=== PATIENT | female | born 1955 | race Caucasian/White ===

== ENCOUNTER 2023-04-08 14:11 | Inpatient (IN) ==
--- NOTE | 2023-04-08 14:23 | Emergency Department Note ---
Impression & Plan Hypoxia ADMIT ED Provider Note HPI: The patient is a 67-year-old female who presents emergency department with chief complaint of altered mental status. Patient was reportedly discharged home from [facility] on 04/02 where she was admitted for pneumonia and hypoxia. Patient was seen by a home health provider today and noted to be in a state of decline with some altered mental status/delirium and therefore was referred to the emergency room via EMS. On arrival here to the ED, the patient is able to follow commands, she is unable to tell me much other history and she is unaware of where she is. She does not have any obvious focal deficits. Per EMS report patient was saturating at 88% in route and was placed on nonrebreather mask. On my assessment the patient is saturating at 98% on 10 L nonrebreather mask. ROS: - Per HPI Differential Diagnosis: Sepsis, pneumonia, stroke, intracranial hemorrhage, urinary tract infection/pyelonephritis, viral upper respiratory infection with respiratory failure/hypoxia, amongst other potential pathologies. *Outpatient medications and allergy history reviewed. *Pertinent external medical records reviewed : PE: General: Alert, morbidly obese HEENT: Normocephalic, trachea midline Eyes: Extraocular eye movement is intact, no scleral erythema Pulmonary: Clear to auscultation bilaterally, no wheezing Cardio: Tachycardic rate with regular rhythm GI: Abdomen is soft to palpation, no guarding or rigidity, no distention : No suprapubic tenderness MSK: No evidence of trauma or malformation of the extremities, no edema Skin: No evidence of rash Neuro: Alert, no focal deficits noted, ambulates all extremities spontaneously, symmetrical facial movements are appreciated Psychiatric: Patient is not oriented to place, she is oriented to self, she is not aggressive, she is confused awake overnight monitor: (As interpreted by myself): - An order was placed for continuous cardiac monitoring - Patient was noted to be in sinus tachycardia with a rate of 121 EKG: (As interpreted by myself): Rate: 121 Rhythm: Sinus tachycardia Intervals: Within normal limits ST changes: No ST elevation Time: 1419 Interventions provided in ED: -IV fluid bolus, IV cefepime, IV azithromycin Medical Decision Making: Shortly after the patient arrived IV was established and lab work ordered, patient began with IV fluid resuscitation over concern for possible sepsis. She maintained stable oxygen saturations on nonrebreather mask and was eventually weaned to simple oxy mask. Lab work shows a leukocytosis of 11.14, hemoglobin is slightly high at 16.2 (suspect hemoconcentration secondary to dehydration), platelet count is within normal limits, CMP shows mild hyponatremia, potassium is elevated at 5.5, BUN is 77, creatinine elevated at 1.45 without baseline. Total bilirubin is within normal limits, AST, ALT, and alk phos are all elevated with AST of 143, ALT 108, alk phos at 782. Troponin is elevated at 49.1, EKG does not show any acute ischemic changes per my interpretation. Procalcitonin is elevated at 0.62, chest x-ray is suggestive of focal interstitial thickening per interpreting radiologist. Glucose on CMP shows results of only 57, patient reportedly had a blood sugar in the 70s in the field, she was given an amp of D50 for this. Mentation did steadily improve throughout her stay here in the ED. CT imaging of the abdomen pelvis was obtained given the patient's transaminitis, this shows possible hepatitis/hepatomegaly. There is also mention of a 17 mm enhancing nodule in the right lower quadrant mention specifically is possible ectopic tissue. I did discuss this finding with the interpreting radiologist, Dr. Miranda, via [place] text, and he explains to me that this finding is likely unrelated to her current issues, and could possibly be a radiodense diverticulum eg inspissated old barium. Patient's abdomen is soft and nontender on my exam. Patient was treated with broad-spectrum antibiotics with cefepime and azithromycin coverage for possible atypical pneumonia given chest x-ray findings. She remained stable on oxy mask at [address] imaging of the head does not show any evidence of any acute intracranial process. I discussed all the gail sena findings with the on-call midlevel provider for [employer], [employer], and the patient was placed for admission in stable condition for further management to the service of Dr. Montes. Consultants: Hospitalist service, Dr. Montes * CRITICAL CARE TIME: ( 45 ) minutes -Stabilization of patient with hypoxia at 88% on room air requiring supplemental oxygen for correction, time spent at the bedside, fluid resuscitation over concern for sepsis, initiation of IV antibiotics, interpretation of diagnostic studies including EKG, discussion with other healthcare providers and arrangement of admission Diagnosis: 1. Hypoxia, acute 2. Pneumonia, acute 3. Acute kidney injury 4. Leukocytosis, acute 5. Altered mental status 6. Transaminitis, nonspecific 7. Hypoglycemia, acute 8. Hyperkalemia, acute, mild Disposition: Admission Jm Hou DO Emergency Medicine Past Med/Surg History Medical History (Updated 04/08/23 @ 20:19 by Jm Hou DO) GERD (gastroesophageal reflux disease) Peptic ulcer disease Surgical History (Updated 04/08/23 @ 17:59 by Sheila Hatfield PA-C) H/O section History of ankle surgery Hx of appendectomy Hx of hysterectomy, total Family History (Updated 04/08/23 @ 18:00 by Sheila Hatfield PA-C) Mother Heart disease Brother Lung cancer Social History (Updated 04/08/23 @ 18:00 by Sheila Hatfield PA-C) Smoking Status: Current every day smoker Hx Alcohol Use: Yes Feels Safe at Home: Yes Allergies Allergies Allergy/AdvReac Type Severity Reaction Status Date / Time penicillin G Allergy Unknown HIVES, RASH Verified 04/08/23 17:46 aspirin Allergy RASH/ITCHY Verified 04/08/23 17:48 Home Meds Home Medications Medication Instructions Recorded Confirmed albuterol sulfate 90 mcg/actuation 2 puff inhalation [id number] PRN 04/08/23 04/08/23 aerosol inhaler Shortness Of Breath Or Wheezing aspirin 81 mg tablet,delayed 81 mg PO DAILY 04/08/23 04/08/23 release atorvastatin 80 mg tablet 80 mg PO DAILY 04/08/23 04/08/23 bupropion HCl 300 mg 24 hr tablet, 300 mg PO DAILY 04/08/23 04/08/23 extended release calcitriol 0.25 mcg capsule 0.25 mcg PO DAILY 04/08/23 04/08/23 cholecalciferol (vitamin D3) 50 50 mcg PO DAILY 04/08/23 04/08/23 mcg (2,000 unit) tablet fluticasone fur. 200 mcg-umeclid 1 inh inhalation DAILY 04/08/23 04/08/23 62.5 mcg-vilant 25 mcg inhalat.powder (Trelegy Ellipta) fluticasone propionate 50 2 spray intranasal DAILY 04/08/23 04/08/23 mcg/actuation nasal spray,suspension ondansetron HCl 8 mg tablet 8 mg PO Q8H PRN Nausea 04/08/23 04/08/23 oxycodone-acetaminophen 5 mg-325 1 tab PO Q6H PRN Pain 04/08/23 04/08/23 mg tablet Results & Data (ED) Vital Signs Vital Signs - 24 hr 04/08/23 14:17 04/08/23 14:15 04/08/23 14:17 Temperature 36.6 C Temperature Source Oral Pulse Rate 125 H 117 H 123 H Pulse Rate from SpO2 Sensor 125 H Respiratory Rate 30 H 14 Respiratory Effort / Characteristics Spontaneous Labored Short of Breath Respiratory Depth Shallow Blood Pressure 121/79 Blood Pressure Mean 93 Pulse Oximetry 98 98 Oxygen Delivery Method Oxymask Oxygen Flow Rate 6 Sepsis Recent Fever Within 48 Hours No Sepsis New/Unexplained Change in Mental Status No Sepsis Action Taken by Nursing Physician Notified Oxygen Flow Rate - Titration Pulse Oximetry Post Tiitration 04/08/23 14:18 04/08/23 14:18 04/08/23 14:20 Temperature Temperature Source Pulse Rate 121 H Pulse Rate from SpO2 Sensor 123 H Respiratory Rate 22 Respiratory Effort / Characteristics Respiratory Depth Blood Pressure 123/79 Blood Pressure Mean 112 100 Pulse Oximetry 100 Oxygen Delivery Method Oxygen Flow Rate Sepsis Recent Fever Within 48 Hours Sepsis New/Unexplained Change in Mental Status Sepsis Action Taken by Nursing Oxygen Flow Rate - Titration Pulse Oximetry Post Tiitration 04/08/23 14:20 04/08/23 14:30 04/08/23 14:39 Temperature Temperature Source Pulse Rate 121 H 121 H Pulse Rate from SpO2 Sensor Respiratory Rate 25 H 31 H Respiratory Effort / Characteristics Respiratory Depth Blood Pressure 117/93 Blood Pressure Mean 95 Pulse Oximetry Oxygen Delivery Method Oxygen Flow Rate Sepsis Recent Fever Within 48 Hours Sepsis New/Unexplained Change in Mental Status Sepsis Action Taken by Nursing Oxygen Flow Rate - Titration Pulse Oximetry Post Tiitration 04/08/23 14:39 04/08/23 14:40 04/08/23 14:45 Temperature Temperature Source Pulse Rate 120 H 119 H 118 H Pulse Rate from SpO2 Sensor 120 H 119 H Respiratory Rate 25 H 31 H 29 H Respiratory Effort / Characteristics Respiratory Depth Blood Pressure Blood Pressure Mean Pulse Oximetry 99 97 Oxygen Delivery Method Oxygen Flow Rate Sepsis Recent Fever Within 48 Hours Sepsis New/Unexplained Change in Mental Status Sepsis Action Taken by Nursing Oxygen Flow Rate - Titration Pulse Oximetry Post Tiitration 04/08/23 14:45 04/08/23 14:50 04/08/23 14:50 Temperature Temperature Source Pulse Rate 117 H Pulse Rate from SpO2 Sensor 118 H Respiratory Rate 37 H Respiratory Effort / Characteristics Respiratory Depth Blood Pressure 117/96 Blood Pressure Mean 55 103 Pulse Oximetry 96 Oxygen Delivery Method Oxygen Flow Rate Sepsis Recent Fever Within 48 Hours Sepsis New/Unexplained Change in Mental Status Sepsis Action Taken by Nursing Oxygen Flow Rate - Titration Pulse Oximetry Post Tiitration 04/08/23 15:06 04/08/23 15:06 04/08/23 15:00 Temperature Temperature Source Pulse Rate 83 109 H Pulse Rate from SpO2 Sensor 108 H Respiratory Rate 28 H 26 H Respiratory Effort / Characteristics Respiratory Depth Blood Pressure 110/89 Blood Pressure Mean 96 Pulse Oximetry 88 L 100 98 Oxygen Delivery Method Room Air Oxymask Oxymask Oxymask Oxygen Flow Rate 4 4 Sepsis Recent Fever Within 48 Hours Sepsis New/Unexplained Change in Mental Status Sepsis Action Taken by Nursing Oxygen Flow Rate - Titration 4 Pulse Oximetry Post Tiitration 100 04/08/23 15:15 04/08/23 15:30 04/08/23 15:45 Temperature Temperature Source Pulse Rate 106 H 103 H 100 H Pulse Rate from SpO2 Sensor 101 H 104 H 99 H Respiratory Rate 24 24 26 H Respiratory Effort / Characteristics Respiratory Depth Blood Pressure 118/86 118/89 129/80 Blood Pressure Mean 96 98 96 Pulse Oximetry 97 98 98 Oxygen Delivery Method Oxymask Oxymask Oxymask Oxygen Flow Rate 4 4 4 Sepsis Recent Fever Within 48 Hours Sepsis New/Unexplained Change in Mental Status Sepsis Action Taken by Nursing Oxygen Flow Rate - Titration Pulse Oximetry Post Tiitration 04/08/23 16:15 04/08/23 16:45 04/08/23 17:01 Temperature Temperature Source Pulse Rate 101 H 94 H 93 H Pulse Rate from SpO2 Sensor 101 H 93 H Respiratory Rate 24 24 22 Respiratory Effort / Characteristics Respiratory Depth Blood Pressure 123/77 149/85 H 116/99 Blood Pressure Mean 92 106 104 Pulse Oximetry 97 98 100 Oxygen Delivery Method Oxymask Oxymask Oxymask Oxygen Flow Rate 4 4 4 Sepsis Recent Fever Within 48 Hours Sepsis New/Unexplained Change in Mental Status Sepsis Action Taken by Nursing Oxygen Flow Rate - Titration Pulse Oximetry Post Tiitration 04/08/23 17:52 04/08/23 18:16 04/08/23 19:00 Temperature Temperature Source Pulse Rate 86 Pulse Rate from SpO2 Sensor 87 91 H 95 H Respiratory Rate 20 Respiratory Effort / Characteristics Respiratory Depth Blood Pressure 103/64 115/70 126/97 Blood Pressure Mean 77 85 106 Pulse Oximetry 100 100 98 Oxygen Delivery Method Oxymask Oxymask Oxymask Oxygen Flow Rate 4 4 4 Sepsis Recent Fever Within 48 Hours Sepsis New/Unexplained Change in Mental Status Sepsis Action Taken by Nursing Oxygen Flow Rate - Titration Pulse Oximetry Post Tiitration 04/08/23 19:16 04/08/23 19:31 04/08/23 19:46 Temperature Temperature Source Pulse Rate Pulse Rate from SpO2 Sensor 93 H 92 H 85 Respiratory Rate Respiratory Effort / Characteristics Respiratory Depth Blood Pressure 117/88 133/72 140/82 Blood Pressure Mean 97 92 101 Pulse Oximetry 99 98 99 Oxygen Delivery Method Oxymask Oxymask Oxymask Oxygen Flow Rate 4 4 4 Sepsis Recent Fever Within 48 Hours Sepsis New/Unexplained Change in Mental Status Sepsis Action Taken by Nursing Oxygen Flow Rate - Titration Pulse Oximetry Post Tiitration Laboratory Data 04/08/23 14:43 04/08/23 14:43 Lab Results 04/08/23 04/08/23 04/08/23 Range/Units 14:31 14:43 14:43 WBC 11.14 H (4.8-10.8) K/ul RBC 5.65 H (4.20-5.40) M/uL Hgb 16.2 H (12.0-16.0) g/dl Hct 48.8 H (37.0-47.0) % MCV 86.4 (80.0-100.0) fL MCH 28.7 (25.0-34.0) pg MCHC 33.2 (32.0-36.0) g/dL RDW Std Deviation 53.7 H (36.4-46.3) fL RDW Coeff of Brayan 17.8 H (11.5-14.5) % Plt Count 248 (130-400) K/uL MPV 10.1 (9.4-12.4) fL Immature Gran % (Auto) 1.2 % Neut % (Auto) 84.5 % Lymph % (Auto) 6.8 % Payette % (Auto) 7.1 % Eos % (Auto) 0.1 % Baso % (Auto) 0.3 % Neut # (Auto) 9.42 H (1.40-6.50) K/uL Lymph # (Auto) 0.76 L (1.20-3.40) K/uL Payette # (Auto) 0.79 H (0.11-0.59) K/uL Eos # (Auto) 0.01 (0.00-0.50) K/uL Baso # (Auto) 0.03 (0.00-0.20) K/uL Immature Gran # (Auto) 0.13 (0.01-0.20) K/uL Absolute Nucleated RBC 0.04 (0.00-0.12) K/uL Nucleated RBC % (auto) 0.4 % PT 11.6 (9.0-12.0) Seconds INR 1.1 (0.9-1.1) Sodium (136-145) mmol/L Potassium (3.5-5.1) mmol/L Chloride (98-107) mmol/L Carbon Dioxide (21-32) mmol/L Anion Gap (3-11) BUN (6-23) mg/dl Creatinine (0.6-1.2) mg/dl Est Cr Clr Drug Dosing Est GFR ( Amer) ml/min Est GFR (Non-Af Amer) ml/min BUN/Creatinine Ratio (10-20) Glucose (70-99(Fasting)) mg/dl POC Glucose (70-99) mg/dl Lactate (0.4-2.0) mmol/L Calcium (8.6-10.3) mg/dl Magnesium (1.7-2.4) mg/dl Total Bilirubin (0.2-1.0) mg/dl Direct Bilirubin (0-0.2) mg/dl AST (13-39) U/L ALT (7-52) U/L Alkaline Phosphatase (34-104) U/L Troponin I High Sens (0-14) pg/ml Total Protein (6.0-8.3) gm/dl Albumin (3.4-5.0) gm/dl Procalcitonin (0-0.5) ng/ml Urine Color Dark Yellow Urine Appearance Clear (Clear) Urine pH 5.5 (4.5-7.5) Ur Specific Parker 1.023 (1.000-1.030) Urine Protein 2+ H (Negative) Urine Glucose (UA) Negative (Negative) Urine Ketones 1+ H (Negative) Urine Blood Negative (Negative) Urine Nitrite Negative (Negative) Urine Bilirubin Negative (Negative) Urine Urobilinogen Negative (Negative) Ur Leukocyte Esterase Negative (Negative) Urine WBC (Auto) 1-5 (0-5) /hpf Urine RBC (Auto) 0-4 (0-4) /hpf U Hyaline Cast (Auto) 1-5 (0-5) /lpf U Epithel Cells (Auto) 20-30 H (0-5) /lpf Urine Bacteria (Auto) Negative (Negative) Adenovirus (PCR) (NotDetected) B. pertussis DNA (PCR) (NotDetected) B.parapertussis DNA PCR (NotDetected) C. pneumoniae DNA (PCR) (NotDetected) Coronavirus OC43 (PCR) (NotDetected) Coronavirus HKU1 (PCR) (NotDetected) Coronavirus 229E (PCR) (NotDetected) SARS-CoV-2 (PCR) (NotDetected) Coronavirus NL63 (PCR) (NotDetected) Human Metapneumovir PCR (NotDetected) Influenza Type A (PCR) (NotDetected) Influenza Type B (PCR) (NotDetected) M. pneumoniae (PCR) (NotDetected) Parainfluenza 1 (PCR) (NotDetected) Parainfluenza 2 (PCR) (NotDetected) Parainfluenza 3 (PCR) (NotDetected) Parainfluenza 4 (PCR) (NotDetected) RSV (PCR) (NotDetected) Entero/Rhino (PCR) (NotDetected) 04/08/23 04/08/23 04/08/23 Range/Units 14:43 14:43 14:43 WBC (4.8-10.8) K/ul RBC (4.20-5.40) M/uL Hgb (12.0-16.0) g/dl Hct (37.0-47.0) % MCV (80.0-100.0) fL MCH (25.0-34.0) pg MCHC (32.0-36.0) g/dL RDW Std Deviation (36.4-46.3) fL RDW Coeff of Brayan (11.5-14.5) % Plt Count (130-400) K/uL MPV (9.4-12.4) fL Immature Gran % (Auto) % Neut % (Auto) % Lymph % (Auto) % Payette % (Auto) % Eos % (Auto) % Baso % (Auto) % Neut # (Auto) (1.40-6.50) K/uL Lymph # (Auto) (1.20-3.40) K/uL Payette # (Auto) (0.11-0.59) K/uL Eos # (Auto) (0.00-0.50) K/uL Baso # (Auto) (0.00-0.20) K/uL Immature Gran # (Auto) (0.01-0.20) K/uL Absolute Nucleated RBC (0.00-0.12) K/uL Nucleated RBC % (auto) % PT (9.0-12.0) Seconds INR (0.9-1.1) Sodium 135 L (136-145) mmol/L Potassium 5.5 H (3.5-5.1) mmol/L Chloride 94 L (98-107) mmol/L Carbon Dioxide 21 (21-32) mmol/L Anion Gap 20 H (3-11) BUN 77 H (6-23) mg/dl Creatinine 1.45 H (0.6-1.2) mg/dl Est Cr Clr Drug Dosing Not Reportable Est GFR ( Amer) 42.5 ml/min Est GFR (Non-Af Amer) 36.7 ml/min BUN/Creatinine Ratio 53.1 H (10-20) Glucose 57 L (70-99(Fasting)) mg/dl POC Glucose (70-99) mg/dl Lactate 1.9 (0.4-2.0) mmol/L Calcium 11.1 H (8.6-10.3) mg/dl Magnesium 2.2 (1.7-2.4) mg/dl Total Bilirubin 1.0 (0.2-1.0) mg/dl Direct Bilirubin 0.3 H (0-0.2) mg/dl AST 143 H (13-39) U/L ALT 108 H (7-52) U/L Alkaline Phosphatase 782 H (34-104) U/L Troponin I High Sens 49.1 H (0-14) pg/ml Total Protein 7.6 (6.0-8.3) gm/dl Albumin 4.0 (3.4-5.0) gm/dl Procalcitonin 0.62 H (0-0.5) ng/ml Urine Color Urine Appearance (Clear) Urine pH (4.5-7.5) Ur Specific Parker (1.000-1.030) Urine Protein (Negative) Urine Glucose (UA) (Negative) Urine Ketones (Negative) Urine Blood (Negative) Urine Nitrite (Negative) Urine Bilirubin (Negative) Urine Urobilinogen (Negative) Ur Leukocyte Esterase (Negative) Urine WBC (Auto) (0-5) /hpf Urine RBC (Auto) (0-4) /hpf U Hyaline Cast (Auto) (0-5) /lpf U Epithel Cells (Auto) (0-5) /lpf Urine Bacteria (Auto) (Negative) Adenovirus (PCR) (NotDetected) B. pertussis DNA (PCR) (NotDetected) B.parapertussis DNA PCR (NotDetected) C. pneumoniae DNA (PCR) (NotDetected) Coronavirus OC43 (PCR) (NotDetected) Coronavirus HKU1 (PCR) (NotDetected) Coronavirus 229E (PCR) (NotDetected) SARS-CoV-2 (PCR) (NotDetected) Coronavirus NL63 (PCR) (NotDetected) Human Metapneumovir PCR (NotDetected) Influenza Type A (PCR) (NotDetected) Influenza Type B (PCR) (NotDetected) M. pneumoniae (PCR) (NotDetected) Parainfluenza 1 (PCR) (NotDetected) Parainfluenza 2 (PCR) (NotDetected) Parainfluenza 3 (PCR) (NotDetected) Parainfluenza 4 (PCR) (NotDetected) RSV (PCR) (NotDetected) Entero/Rhino (PCR) (NotDetected) 04/08/23 04/08/23 Range/Units 16:43 16:45 WBC (4.8-10.8) K/ul RBC (4.20-5.40) M/uL Hgb (12.0-16.0) g/dl Hct (37.0-47.0) % MCV (80.0-100.0) fL MCH (25.0-34.0) pg MCHC (32.0-36.0) g/dL RDW Std Deviation (36.4-46.3) fL RDW Coeff of Brayan (11.5-14.5) % Plt Count (130-400) K/uL MPV (9.4-12.4) fL Immature Gran % (Auto) % Neut % (Auto) % Lymph % (Auto) % Payette % (Auto) % Eos % (Auto) % Baso % (Auto) % Neut # (Auto) (1.40-6.50) K/uL Lymph # (Auto) (1.20-3.40) K/uL Payette # (Auto) (0.11-0.59) K/uL Eos # (Auto) (0.00-0.50) K/uL Baso # (Auto) (0.00-0.20) K/uL Immature Gran # (Auto) (0.01-0.20) K/uL Absolute Nucleated RBC (0.00-0.12) K/uL Nucleated RBC % (auto) % PT (9.0-12.0) Seconds INR (0.9-1.1) Sodium (136-145) mmol/L Potassium (3.5-5.1) mmol/L Chloride (98-107) mmol/L Carbon Dioxide (21-32) mmol/L Anion Gap (3-11) BUN (6-23) mg/dl Creatinine (0.6-1.2) mg/dl Est Cr Clr Drug Dosing Est GFR ( Amer) ml/min Est GFR (Non-Af Amer) ml/min BUN/Creatinine Ratio (10-20) Glucose (70-99(Fasting)) mg/dl POC Glucose 120 H (70-99) mg/dl Lactate (0.4-2.0) mmol/L Calcium (8.6-10.3) mg/dl Magnesium (1.7-2.4) mg/dl Total Bilirubin (0.2-1.0) mg/dl Direct Bilirubin (0-0.2) mg/dl AST (13-39) U/L ALT (7-52) U/L Alkaline Phosphatase (34-104) U/L Troponin I High Sens (0-14) pg/ml Total Protein (6.0-8.3) gm/dl Albumin (3.4-5.0) gm/dl Procalcitonin (0-0.5) ng/ml Urine Color Urine Appearance (Clear) Urine pH (4.5-7.5) Ur Specific Parker (1.000-1.030) Urine Protein (Negative) Urine Glucose (UA) (Negative) Urine Ketones (Negative) Urine Blood (Negative) Urine Nitrite (Negative) Urine Bilirubin (Negative) Urine Urobilinogen (Negative) Ur Leukocyte Esterase (Negative) Urine WBC (Auto) (0-5) /hpf Urine RBC (Auto) (0-4) /hpf U Hyaline Cast (Auto) (0-5) /lpf U Epithel Cells (Auto) (0-5) /lpf Urine Bacteria (Auto) (Negative) Adenovirus (PCR) Not Detected (NotDetected) B. pertussis DNA (PCR) Not Detected (NotDetected) B.parapertussis DNA PCR Not Detected (NotDetected) C. pneumoniae DNA (PCR) Not Detected (NotDetected) Coronavirus OC43 (PCR) Not Detected (NotDetected) Coronavirus HKU1 (PCR) Not Detected (NotDetected) Coronavirus 229E (PCR) Not Detected (NotDetected) SARS-CoV-2 (PCR) Not Detected (NotDetected) Coronavirus NL63 (PCR) Not Detected (NotDetected) Human Metapneumovir PCR Not Detected (NotDetected) Influenza Type A (PCR) Not Detected (NotDetected) Influenza Type B (PCR) Not Detected (NotDetected) M. pneumoniae (PCR) Not Detected (NotDetected) Parainfluenza 1 (PCR) Not Detected (NotDetected) Parainfluenza 2 (PCR) Not Detected (NotDetected) Parainfluenza 3 (PCR) Not Detected (NotDetected) Parainfluenza 4 (PCR) Not Detected (NotDetected) RSV (PCR) Not Detected (NotDetected) Entero/Rhino (PCR) Not Detected (NotDetected) Administered Medications Discontinued Medications Dextrose (Dextrose 50% 50 Ml Syringe) Confirm Administered Dose 50 ml IV .STK- MED ONE Stop: 04/08/23 15:29 Last Admin: 04/08/23 15:37 Dose: Not Given Documented By: QGV Dextrose (Dextrose 50% 50 Ml Syringe) 50 ml IV NOW STA Stop: 04/08/23 15:37 Last Admin: 04/08/23 15:36 Dose: 50 ml Documented By: QGV Sodium Chloride (Nss) 1,000 mls @ 999 mls/hr IV .Q1H1M JANETTE Stop: 04/08/23 15:30 Last Infusion: 04/08/23 16:40 Dose: 0 mls/hr Documented By: Admin: 04/08/23 14:54 Dose: 999 mls/hr Documented By: HS Sodium Chloride (Nss) 1,000 mls @ 999 mls/hr IV .Q1H1M ONE Stop: 04/08/23 15:52 Last Infusion: 04/08/23 17:04 Dose: 0 mls/hr Documented By: Admin: 04/08/23 15:58 Dose: 999 mls/hr Documented By: QGV Sodium Chloride (Nss) 500 mls @ 999 mls/hr IV .Q31M ONE Stop: 04/08/23 16:07 Last Infusion: 04/08/23 17:22 Dose: 0 mls/hr Documented By: Admin: 04/08/23 16:40 Dose: 999 mls/hr Documented By: QGV Cefepime HCl (Maxipime) 2,000 mg in 20 mls @ 5 mls/min IV NOW STA; Protocol Stop: 04/08/23 16:09 Last Admin: 04/08/23 16:39 Dose: 5 mls/min Documented By: QGV Azithromycin 500 mg/ Dextrose 255 mls @ 125 mls/hr IV ONE ONE Stop: 04/08/23 19:33 Last Infusion: 04/08/23 19:56 Dose: 0 mls/hr Documented By: Admin: 04/08/23 17:50 Dose: 125 mls/hr Documented By: QGV Ioversol (Optiray 320 500ml) 90 ml IV ONCE ONE Stop: 04/08/23 16:29 Last Admin: 04/08/23 16:28 Dose: 90 ml Documented By: BONNY Imaging Data Radiologist's Impression: Chest X-Ray 04/08/23 14:21 XR chest 1V portable HISTORY: Sepsis COMPARISON: None. FINDINGS: No pneumothorax. Possible trace left pleural effusion. Left subclavian Port-A-Cath runs at the proximal SVC. There are surgical clips overlying the right mid chest wall. Mild diffuse interstitial thickening most pronounced within the periphery and lung bases. There are low lung volumes. This suggests chronic fibrotic change. The heart is borderline enlarged. There are calcifications within the aortic knob. Focus of interstitial thickening within the right midlung zone is indeterminate but may also be chronic. IMPRESSION: 1. Low lung volumes with diffuse interstitial thickening suggestive of chronic fibrotic change. 2. Possible trace left pleural effusion. 3. Focal interstitial thickening within the right midlung zone may also represent a component of the suspected fibrotic change. A superimposed pneumonitis could also have a similar appearance. ACT 112: Negative or not required by law. Electronically signed by: Cristopher Moody M.D. 04/08/2023 3:[address] 04/08/23 14:22 CT head/brain wo con CLINICAL HISTORY: AMS Technique: Contiguous axial CT images of the head were acquired from the base of the skull to the vertex without intravenous contrast administration. Images were viewed in brain, subdural and bone windows. Automated dose lowering techniques and/or adjustment according to patient size were utilized for this exam. Comparison: None available at the time of this dictation. Findings: Areas of decreased attenuation are present in the periventricular and subcortical white matter bilaterally consistent with small vessel ischemic disease. Generalized cerebral atrophy with commensurate enlargement of the ventricles, sulci, and cisterns is also present. There is no acute intracranial hemorrhage or evidence of acute territorial infarction. No shift of the midline structures, mass effect, or extra-axial abnormalities are shown. Atherosclerotic calcifications are present in the intracranial segments of the internal carotid arteries. Imaged portions of the paranasal sinuses and mastoid air cells are clear. The orbits appear normal. There are no acute fractures of the calvaria or scalp swelling. Impression: No acute intracranial hemorrhage, no evidence of acute territorial infarction or other acute intracranial disease process. ACT 112: Negative or not required by law. Electronically signed by: John Miranda M.D. 04/08/2023 4:48 PM Abdomen/Pelvis CT 04/08/23 15:36 CT abd pelvis IV con only CLINICAL HISTORY: AMS, transaminitis TECHNIQUE: Helical axial images of the abdomen and pelvis were obtained and displayed. Automated dose lowering techniques and/or adjustment according to patient size were utilized for this exam. This exam was performed with intravenous contrast. CT DOSE: 2321.24 mGy.cm COMPARISON: None available at the time of this dictation. FINDINGS: Lower chest: Extensive bronchiectasis emphysema noted. Liver: There is a 14 mm hypoechoic lesion in left lobe of the liver. Additional ill-defined heterogeneity of the liver is seen. Hepatic steatosis versus edema is seen. Hepatomegaly is seen with the liver measuring approximately 18 mm in craniocaudal dimension at the midclavicular line. Gallbladder and biliary tree: Patient is status post cholecystectomy. Physiologic prominence of the biliary ducts is noted. Pancreas: Unremarkable, no focal lesions. Spleen: Unremarkable. Adrenals: Unremarkable. Kidneys and ureters: Unremarkable. Bladder: Mcmillan catheter is seen. Reproductive organs: Patient is status post hysterectomy. Bowel: Unremarkable. Lymph nodes Retroperitoneal: Les hepatis nodes measure up to 13 mm in diameter. Additional subcentimeter retroperitoneal nodes are seen. Pelvic: Unremarkable. Mesenteric: Unremarkable. Peritoneum: There is a 17 mm enhancing nodule in the right lower quadrant measuring 17 x 10 mm. Vessels: Atherosclerotic calcifications are seen. Abdominal wall: Injection granuloma is seen in the right mid abdomen. Bones: Mild degenerative changes are seen. IMPRESSION: 1. Hepatomegaly and heterogeneously decreased attenuation is seen with suggestion of nodularity, compatible with hepatitis in this patient with elevated liver enzymes. Les hepatis lymphadenopathy is likely reactive. Follow-up to resolution is recommended to exclude underlying liver mass. 2. Additional findings as above. ACT 112: Negative or not required by law. Electronically signed by: John Miranda M.D. 04/08/2023 4:57 PM Discharge Plan Visit Data Chief Complaint: Altered Mental Status Stated Complaint: DECLINE IN MENTAL STATUS, CONFUSION ED Provider: Jm Hou Discharge Problem: Hypoxia Forms Stand Alone Forms: My [employer] Prescriptions Prescriptions: No Action calcitriol 0.25 mcg capsule 0.25 mcg PO DAILY aspirin 81 mg Tablet,Delayed Release (Dr/Ec) 81 mg PO DAILY bupropion HCl 300 mg tablet extended release 24 hr 300 mg PO DAILY atorvastatin 80 mg tablet 80 mg PO DAILY Trelegy Ellipta 200-62.5-25 mcg blister with device 1 inh INHALATION DAILY albuterol sulfate 90 mcg/actuation HFA aerosol inhaler 2 puff INHALATION Q6HWA PRN (Reason: Shortness Of Breath Or Wheezing) ondansetron HCl 8 mg tablet 8 mg PO Q8H PRN (Reason: Nausea) oxycodone-acetaminophen 5-325 mg tablet 1 tab PO Q6H PRN (Reason: Pain) fluticasone propionate 50 mcg/actuation spray,suspension 2 spray INTRANASAL DAILY cholecalciferol (vitamin D3) 50 mcg (2,000 unit) Tablet 50 mcg PO DAILY Referrals Referrals: Mira Whitfield MD [Primary Care Provider] -
[2023-04-08] MEDS ORDERED: SODIUM CHLORIDE 0.9% 1,000 ML IV SCH (14:30)
[2023-04-08] MEDS ORDERED: SODIUM CHLORIDE 0.9% 1,000 ML IV ONE (14:52)
[2023-04-08 15:03] LABS: Appearance Urine Clear (Clear); Bacteria Urine Automated Negative (Negative); Bilirubin Urine Negative (Negative); Blood Urine Negative (Negative); Color Urine Dark Yellow; Epithelial Cell Urine Auto 20-30 /lpf (0-5); Glucose Urine UA Negative (Negative); Ketones Urine 1+ (Negative); Leukocyte Esterase Urine Negative (Negative); Nitrite Urine Negative (Negative); Protein Urine 2+ (Negative); RBC Urine Automated 0-4 /hpf (0-4); Specific Gravity Urine 1.023 (1.000-1.030); Urobilinogen Urine Negative (Negative); pH Urine 5.5 (4.5-7.5)
[2023-04-08 15:09] LABS: Basophils # (auto) 0.03 K/uL (0.00-0.20); Basophils % (auto) 0.3 %; Eosinophils # (auto) 0.01 K/uL (0.00-0.50); Eosinophils % (auto) 0.1 %; Hematocrit (blood only) 48.8 % (37.0-47.0); Hemoglobin 16.2 g/dl (12.0-16.0); Immature Granulocytes # (auto) 0.13 K/uL (0.01-0.20); Immature Granulocytes % (auto) 1.2 %; Lymphocytes # (auto) 0.76 K/uL (1.20-3.40); Lymphocytes % (auto) 6.8 %; Mean Corpuscular Hemoglobin 28.7 pg (25.0-34.0); Mean Corpuscular Hgb Conc 33.2 g/dL (32.0-36.0); Mean Corpuscular Volume 86.4 fL (80.0-100.0); Mean Platelet Volume 10.1 fL (9.4-12.4); Monocytes # (auto) 0.79 K/uL (0.11-0.59); Monocytes % (auto) 7.1 %; Neutrophils # (auto) 9.42 K/uL (1.40-6.50); Neutrophils % (auto) 84.5 %; Nucleated RBC # (auto) 0.04 K/uL (0.00-0.12); Nucleated RBC % (auto) 0.4 %; Platelet Count 248 K/uL (130-400); RDW Coefficient of Variation 17.8 % (11.5-14.5); RDW Standard Deviation 53.7 fL (36.4-46.3); Red Blood Count 5.65 M/uL (4.20-5.40); White Blood Count 11.14 K/ul (4.8-10.8)
[2023-04-08 15:20] LABS: Alanine Aminotransferase 108 U/L (7-52); Alkaline Phosphatase 782 U/L (34-104); Anion Gap 20 (3-11); Aspartate Aminotransferase 143 U/L (13-39); BUN Creatinine Ratio 53.1 (10-20); Bilirubin Direct 0.3 mg/dl (0-0.2); Blood Urea Nitrogen 77 mg/dl (6-23); Calcium 11.1 mg/dl (8.6-10.3); Carbon Dioxide 21 mmol/L (21-32); Chloride 94 mmol/L (98-107); Est GFR (African American) 42.5 ml/min; Est GFR (Non-African American) 36.7 ml/min; Glucose 57 mg/dl (70-99(Fasting)); Magnesium 2.2 mg/dl (1.7-2.4); Potassium 5.5 mmol/L (3.5-5.1); Sodium 135 mmol/L (136-145); Total Protein 7.6 gm/dl (6.0-8.3)
[2023-04-08 15:25] LABS: INR 1.1 (0.9-1.1); Prothrombin Time 11.6 Seconds (9.0-12.0)
[2023-04-08] MEDS ORDERED: DEXTROSE 50% 50 ML SYRINGE IV ONE (15:28)
[2023-04-08] MEDS ORDERED: DEXTROSE 50% 50 ML SYRINGE IV STA (15:36)
[2023-04-08] MEDS ORDERED: SODIUM CHLORIDE 0.9% 500 ML IV ONE (15:37)
--- NOTE | 2023-04-08 15:55 | XRay Report ---
XR chest 1V portable HISTORY: Sepsis COMPARISON: None. FINDINGS: No pneumothorax. Possible trace left pleural effusion. Left subclavian Port-A-Cath runs at the proximal SVC. There are surgical clips overlying the right mid chest wall. Mild diffuse interstit ial thickening most pronounced within the periphery and lung bases. There are low lung volumes. This suggests chronic fibrotic change. The heart is borderline enlarged. There are calcifications within t he aortic knob. Focus of interstitial thickening within the right midlung zone is indeterminate but m ay also be chronic. IMPRESSION: 1. Low lung volumes with diffuse interstitial thickening suggestive of chronic fibrotic change. 2. Possible trace left pleural effusion. 3. Focal interstitial thickening within the right midlung zone may also represent a component of the suspected fibrotic change. A superimposed pneumonitis could also have a similar appearance. ACT 112: Negative or not required by law. Electronically signed by: Cristopher Moody M.D. 04/08/2023 3:52 PM
[2023-04-08] MEDS ORDERED: CEFEPIME 2,000 MG/20 ML VIAL IV STA (16:06)
[2023-04-08] MEDS ORDERED: OPTIRAY 320 500ml IV ONE (16:28)
--- NOTE | 2023-04-08 16:49 | CT Scan Report ---
CT head/brain wo con CLINICAL HISTORY: AMS Technique: Contiguous axial CT images of the head were acquired from the base of the skull to the ben garcía without intravenous contrast administration. Images were viewed in brain, subdural and [facility]. Automated dose lowering techniques and/or adjustment according to patient size were utilized for this exam. Comparison: None available at the time of this dictation. Findings: Areas of decreased attenuation are present in the periventricular and subcortical white matter bilate rally consistent with small vessel ischemic disease. Generalized cerebral atrophy with commensurate e nlargement of the ventricles, sulci, and cisterns is also present. There is no acute intracranial hem orrhage or evidence of acute territorial infarction. No shift of the midline structures, mass effect, or extra-axial abnormalities are shown. Atherosclerotic calcifications are present in the intracran ial segments of the internal carotid arteries. Imaged portions of the paranasal sinuses and mastoid air cells are clear. The orbits appear normal. There are no acute fractures of the calvaria or scalp swelling. Impression: No acute intracranial hemorrhage, no evidence of acute territorial infarction or other acute intracra nial disease process. ACT 112: Negative or not required by law. Electronically signed by: John Miranda M.D. 04/08/2023 4:48 PM
--- NOTE | 2023-04-08 16:58 | CT Scan Report ---
CT abd pelvis IV con only CLINICAL HISTORY: AMS, transaminitis TECHNIQUE: Helical axial images of the abdomen and pelvis were obtained and displayed. Automated dose lowering techniques and/or adjustment according to patient size were utilized for this exam. This e xam was performed with intravenous contrast. CT DOSE: 2321.24 mGy.cm COMPARISON: None available at the time of this dictation. FINDINGS: Lower chest: Extensive bronchiectasis emphysema noted. Liver: There is a 14 mm hypoechoic lesion in left lobe of the liver. Additional ill-defined heterogen eity of the liver is seen. Hepatic steatosis versus edema is seen. Hepatomegaly is seen with the live r measuring approximately 18 mm in craniocaudal dimension at the midclavicular line. Gallbladder and biliary tree: Patient is status post cholecystectomy. Physiologic prominence of the b iliary ducts is noted. Pancreas: Unremarkable, no focal lesions. Spleen: Unremarkable. Adrenals: Unremarkable. Kidneys and ureters: Unremarkable. Bladder: Mcmillan catheter is seen. Reproductive organs: Patient is status post hysterectomy. Bowel: Unremarkable. Lymph nodes Retroperitoneal: Les hepatis nodes measure up to 13 mm in diameter. Additional subcentimeter retrop eritoneal nodes are seen. Pelvic: Unremarkable. Mesenteric: Unremarkable. Peritoneum: There is a 17 mm enhancing nodule in the right lower quadrant measuring 17 x 10 mm. Vessels: Atherosclerotic calcifications are seen. Abdominal wall: Injection granuloma is seen in the right mid abdomen. Bones: Mild degenerative changes are seen. IMPRESSION: 1. Hepatomegaly and heterogeneously decreased attenuation is seen with suggestion of nodularity, com patible with hepatitis in this patient with elevated liver enzymes. Les hepatis lymphadenopathy is likely reactive. Follow-up to resolution is recommended to exclude underlying liver mass. 2. Additional findings as above. ACT 112: Negative or not required by law. Electronically signed by: John Miranda M.D. 04/08/2023 4:57 PM
[2023-04-08] MEDS ORDERED: AZITHROMYCIN 500 MG in DEXTROSE 5% 250 ML IV ONE (17:31)
[2023-04-08 17:49] LABS: Adenovirus PCR Not Detected (NotDetected); Bordetella parapertussis PCR Not Detected (NotDetected); Bordetella pertussis PCR Not Detected (NotDetected); Chlamydia pneumoniae PCR Not Detected (NotDetected); Coronavirus 229E PCR Not Detected (NotDetected); Coronavirus CoV-2 (COVID19)PCR Not Detected (NotDetected); Coronavirus HKU1 PCR Not Detected (NotDetected); Coronavirus NL63 PCR Not Detected (NotDetected); Coronavirus OC43PCR Not Detected (NotDetected); Human Metapneumovirus PCR Not Detected (NotDetected); Influenza A PCR Not Detected (NotDetected); Influenza B PCR Not Detected (NotDetected); Mycoplasma pneumoniae PCR Not Detected (NotDetected); Parainfluenza Virus 1 PCR Not Detected (NotDetected); Parainfluenza Virus 2 PCR Not Detected (NotDetected); Parainfluenza Virus 3 PCR Not Detected (NotDetected); Parainfluenza Virus 4 PCR Not Detected (NotDetected); Respiratory Syncytial VirusPCR Not Detected (NotDetected); Rhinovirus/Enterovirus PCR Not Detected (NotDetected)
--- NOTE | 2023-04-08 17:49 | History & Physical Report ---
Date of Service April 08, 2023 Assessment & Plan (1) Acute respiratory failure with hypoxia: (2) Dehydration: (3) Pneumonia: (4) Elevated transaminase level: Plan: 67 yo F with PMhx of Small cell lung carcinoma s/p chemo and XRT therapy finishing in October 2022, Hx of tobacco use, recurrent pneumonia/radiation pneumonitis, GERD, peptic ulcer disease, and recent admission to [facility] for pneumonia treatment, and was discharged on 04/02/2023 to home with home health services. Encephalopathy Acute Respiratory Distress with Hypoxia Pneumonia vs radiation pneumonitis Hx Small Cell Lung Cancer MICHELLE on CPAP HS Anion Gap Metabolic Acidosis - Admit to tele - Pt with recent admission to [place], was discharged home on the , records are not available currently to review-- HIM consult placed - Pt previously follow with Dr. Callaway ms sql dba - Cancer hx in the R lung upper lobe, no mets, no surgical resection - hx chemo and XRT - follows with Dr. Mack Callaway. - Hx of tobacco use about 20 years, smoked 1-2.5 packs x 25-30 years - CXR: 1. Low lung volumes with diffuse interstitial thickening suggestive of chronic fibrotic change. 2. Possible trace left pleural effusion. 3. Focal interstitial thickening within the right midlung zone may also represent a component of the suspected fibrotic change. A superimposed pneumonitis could also have a similar appearance. - Started on azithromycin and cefepime in the ER, check MRSA nasal swab, biofire panel is negative - Sputum culture, mucinex, duonebs QID and Q2H prn, Wean O2 prn - Check ABG stat to r/o co2 retention causing worsening mentation, Anion gap of 20, was given 1 amp Dextrose on arrival due to hypoglycemia of 57 - Influenza swab neg, MRSA swab neg - WBC at time of admission = 11.14 - BCx x 2, follow, Afebrile, lactate was negative, Procalcitonin 0.62 - Uses albuterol and Trellegy as directed - consider repeat CXR tomorrow - Consider pulmonology consult - Check urine tox, possibly taking hydrocodone/acetaminophen at home - daughter in law states she uses it once daily Hyperkalemia - 5.5 on admission, likely due to dehydration, will continue fluids as above and trend with am labs. - D5W at 125ml/hr Elevated Transaminases - CT abd/pelvis reviewed showin x 10 mm enhancing nodule in the right lower quadrant adjacent to the cecum may represent ectopic tissue of an unknown source. Carcinoid tumor or other neoplasm is considered less likely. Hepatomegaly and heterogeneously decreased attenuation is seen with suggestion of nodularity, compatible with hepatitis in this patient with elevated liver enzymes. Lexis hepatis lymphadenopathy is likely reactive. Follow-up to resolution is recommended to exclude underlying liver mass. Left lower quadrant mass may also represent a highly radiodense diverticulum. - Will await records from [place] to see if this is worse than when she previously was discharged, or if this is new? Possible that this is related to lung cancer as above, however she chemotherapy finished in October 2022. - Trend am labs - Check GGT, trend LFTs, phos and mag - GI consultation CHALINO on CKD stage III - No previous result to review, Cr. 1.45, likely dehydrated - D5W 125 ml/hr may require more pending lab results - Follows with [facility] as outpatient HTN - Discussed meds with family - does not appear that she is on any antihypertensives at this time - there is nifedipine 60 mg daily in her med hx, possible that this was discontinued after most recent hospitalization? - Currently BP stable HLD - Cont atorvastatin 80 mg daily hx of CVA - Occurred 10 years ago, no residual deficits - Takes baby aspirin daily - CT head negative today, will order MRI of the brain with worsening AMS over the past 2 days GERD - Has taken nexium over the counter POA - Varun (son) can be reached at [phone], or his Hyun at [phone] DVT ppx: teds, scds, heparin subq Lines: 2 PIV CODE: FULL Dispo: From home, likely to remain in hospital x 1-2 days History of Present Illness Chief Complaint: Shortness of breath Primary Care Provider: Mira Whitfield MD This is a 67 yo F with PMhx of GERD, peptic ulcer disease, and recent admission to [facility] for pneumonia treatment, and was discharged on 03/31- 04/02/2023 due to trouble breathing. Pt son reports pt with hx of Small cell lung cancer and underwent 4 cycles of chemotherapy and radiation daily for about 1 month of therapy which finished in October 2022, was told that she at one point had radiation pneumonitis. During the hospitalization she was also treated for hyponatremia. Since then she has had issues with breathing. Pt has been wearing at baseline, ( son is unsure how much, mentions 8L?). Pt also has a CPAP machine but is noncompliant. Pt lives at home, granddaughter lives with her and helps with basic household tasks. Over the past 2 days, she reports things have been progressively getting worse and was asking to "talk to Pap," who is her , and he has been for 7 years. Since being discharged home, she has been unable to even stand up by herself. PT/OT were consulted, and today was the first time they made it to her home to see the patient, and recommended she needed to go back to the hospital/rehab. Son reports prior to 3 weeks ago, she was completely normal, and since last Saturday she has been confused. Today she was evaluated by home health and was found to be appearing more ill, encephalopathic and therefore called EMS. Upon presentation here in the ER she was found to be hypoxic with O2 sats at 88% on room air, confused and minimally able to participate in conversation due to confusion. She was placed on 5 L via oxy mask in her O2 sats improved to the low 90s. Of note liver function tests are elevated, AST 143, ALT 108, alk phos 782. Social Hx: Hx of tobacco use about 20 years, smoked 1-2.5 packs of [place] x 25-30 years, son reports social drinking Allergies Allergy/AdvReac Type Severity Reaction Status Date / Time penicillin G Allergy Unknown HIVES, RASH Verified 04/08/23 17:46 aspirin Allergy RASH/ITCHY Verified 04/08/23 17:48 Home Medications Medication Instructions Recorded Confirmed Type albuterol sulfate 90 mcg/actuation 2 puff inhalation Q6HWA PRN 04/08/23 04/08/23 History aerosol inhaler Shortness Of Breath Or Wheezing aspirin 81 mg tablet,delayed 81 mg PO DAILY 04/08/23 04/08/23 History release atorvastatin 80 mg tablet 80 mg PO DAILY 04/08/23 04/08/23 History bupropion HCl 300 mg 24 hr tablet, 300 mg PO DAILY 04/08/23 04/08/23 History extended release calcitriol 0.25 mcg capsule 0.25 mcg PO DAILY 04/08/23 04/08/23 History cholecalciferol (vitamin D3) 50 50 mcg PO DAILY 04/08/23 04/08/23 History mcg (2,000 unit) tablet fluticasone fur. 200 mcg-umeclid 1 inh inhalation DAILY 04/08/23 04/08/23 History 62.5 mcg-vilant 25 mcg inhalat.powder (Trelegy Ellipta) fluticasone propionate 50 2 spray intranasal DAILY 04/08/23 04/08/23 History mcg/actuation nasal spray,suspension ondansetron HCl 8 mg tablet 8 mg PO Q8H PRN Nausea 04/08/23 04/08/23 History oxycodone-acetaminophen 5 mg-325 1 tab PO Q6H PRN Pain 04/08/23 04/08/23 History mg tablet Past Med/Surg History Medical History (Updated 04/08/23 @ 20:19 by Jm Hou DO) GERD (gastroesophageal reflux disease) Peptic ulcer disease Surgical History (Updated 04/08/23 @ 17:59 by Sheila Hatfield PA-C) H/O section History of ankle surgery Hx of appendectomy Hx of hysterectomy, total Family History (Updated 04/08/23 @ 18:00 by Sheila Hatfield PA-C) Mother Heart disease Brother Lung cancer Social History (Updated 04/08/23 @ 18:00 by Sheila Hatfield PA-C) Smoking Status: Current every day smoker Hx Alcohol Use: Yes Feels Safe at Home: Yes Review of Systems Review of Systems: Unobtainable due to cognitive status Physical Exam Physical Exam: General: awake, alert, awakens to verbal stimuli, confused, obese Head: Normocephalic, atraumatic ENT: PERRL, EOMI, no pharyngeal exudate, mucous membranes dry Chest: on 8 L via oximask, titrated down to 4 L with maintained sats in mid 90s, + Right middle lobe with crackles, no wheeze or rales Cardiac: Regular rate and rhythm, no murmur, no JVD, normal peripheral pulses, good capillary refill Abdominal: NABS x 4 quadrants, soft, nondistended, nontender to palpation, no rebound or guarding Extremities: Normal inspection, no peripheral edema or erythema, calfs nontender to palpation Psych: Normal mood and affect Neuro: awake, not oriented to date, place or time. She can move all extremities without difficulty in bed, no gross motor deficits, speech is clear, no peripheral sensory deficits Results & Data Results & Data Vital Signs (Past 12 Hours) Vital Signs Temp Pulse Resp BP Pulse Ox O2 Del Method O2 Flow Rate 04/08/23 17:01 93 H 22 116/99 100 Oxymask 4 04/08/23 16:45 94 H 24 149/85 H 98 Oxymask 4 04/08/23 16:15 101 H 24 123/77 97 Oxymask 4 04/08/23 15:45 100 H 26 H 129/80 98 Oxymask 4 04/08/23 15:30 103 H 24 118/89 98 Oxymask 4 04/08/23 15:15 106 H 24 118/86 97 Oxymask 4 04/08/23 15:00 109 H 26 H 110/89 98 Oxymask 4 04/08/23 15:06 83 28 H 100 Oxymask 4 04/08/23 15:06 88 L Room Air, Oxymask 04/08/23 14:50 117 H 37 H 96 04/08/23 14:50 117/96 04/08/23 14:45 118 H 29 H 04/08/23 14:40 119 H 31 H 97 04/08/23 14:39 120 H 25 H 99 04/08/23 14:39 117/93 04/08/23 14:30 121 H 31 H 04/08/23 14:20 121 H 25 H 04/08/23 14:20 123/79 04/08/23 14:18 121 H 22 100 04/08/23 14:17 123 H 14 98 04/08/23 14:15 36.6 C 117 H 30 H 121/79 98 Oxymask 6 04/08/23 14:17 125 H Laboratory Results 04/08/23 14:44 Aerobic Blood Culture - Pending Blood Anaerobic Blood Culture - Pending 04/08/23 14:43 Aerobic Blood Culture - Pending Blood Anaerobic Blood Culture - Pending 04/08/23 04/08/23 04/08/23 16:45 16:43 14:43 WBC RBC Hgb Hct MCV MCH MCHC RDW Std Deviation RDW Coeff of Brayan Plt Count MPV Immature Gran % (Auto) Neut % (Auto) Lymph % (Auto) [place] % (Auto) Eos % (Auto) Baso % (Auto) Neut # (Auto) Lymph # (Auto) [place] # (Auto) Eos # (Auto) Baso # (Auto) Immature Gran # (Auto) Absolute Nucleated RBC Nucleated RBC % (auto) PT INR Sodium Potassium Chloride Carbon Dioxide Anion Gap BUN Creatinine Est Cr Clr Drug Dosing Est GFR ( Amer) Est GFR (Non-Af Amer) BUN/Creatinine Ratio Glucose POC Glucose 120 H Lactate Calcium Magnesium Total Bilirubin Direct Bilirubin AST ALT Alkaline Phosphatase Troponin I High Sens Total Protein Albumin Procalcitonin 0.62 H Urine Color Urine Appearance Urine pH Ur Specific Fellows Urine Protein Urine Glucose (UA) Urine Ketones Urine Blood Urine Nitrite Urine Bilirubin Urine Urobilinogen Ur Leukocyte Esterase Urine WBC (Auto) Urine RBC (Auto) U Hyaline Cast (Auto) U Epithel Cells (Auto) Urine Bacteria (Auto) Adenovirus (PCR) Not Detected B. pertussis DNA (PCR) Not Detected B.parapertussis DNA PCR Not Detected C. pneumoniae DNA (PCR) Not Detected Coronavirus OC43 (PCR) Not Detected Coronavirus HKU1 (PCR) Not Detected Coronavirus 229E (PCR) Not Detected SARS-CoV-2 (PCR) Not Detected Coronavirus NL63 (PCR) Not Detected Human Metapneumovir PCR Not Detected Influenza Type A (PCR) Not Detected Influenza Type B (PCR) Not Detected M. pneumoniae (PCR) Not Detected Parainfluenza 1 (PCR) Not Detected Parainfluenza 2 (PCR) Not Detected Parainfluenza 3 (PCR) Not Detected Parainfluenza 4 (PCR) Not Detected RSV (PCR) Not Detected Entero/Rhino (PCR) Not Detected 04/08/23 04/08/23 04/08/23 14:43 14:43 14:43 WBC RBC Hgb Hct MCV MCH MCHC RDW Std Deviation RDW Coeff of Brayan Plt Count MPV Immature Gran % (Auto) Neut % (Auto) Lymph % (Auto) [place] % (Auto) Eos % (Auto) Baso % (Auto) Neut # (Auto) Lymph # (Auto) [place] # (Auto) Eos # (Auto) Baso # (Auto) Immature Gran # (Auto) Absolute Nucleated RBC Nucleated RBC % (auto) PT 11.6 INR 1.1 Sodium 135 L Potassium 5.5 H Chloride 94 L Carbon Dioxide 21 Anion Gap 20 H BUN 77 H Creatinine 1.45 H Est Cr Clr Drug Dosing Not Reportable Est GFR ( Amer) 42.5 Est GFR (Non-Af Amer) 36.7 BUN/Creatinine Ratio 53.1 H Glucose 57 L POC Glucose Lactate 1.9 Calcium 11.1 H Magnesium 2.2 Total Bilirubin 1.0 Direct Bilirubin 0.3 H AST 143 H ALT 108 H Alkaline Phosphatase 782 H Troponin I High Sens 49.1 H Total Protein 7.6 Albumin 4.0 Procalcitonin Urine Color Urine Appearance Urine pH Ur Specific Fellows Urine Protein Urine Glucose (UA) Urine Ketones Urine Blood Urine Nitrite Urine Bilirubin Urine Urobilinogen Ur Leukocyte Esterase Urine WBC (Auto) Urine RBC (Auto) U Hyaline Cast (Auto) U Epithel Cells (Auto) Urine Bacteria (Auto) Adenovirus (PCR) B. pertussis DNA (PCR) B.parapertussis DNA PCR C. pneumoniae DNA (PCR) Coronavirus OC43 (PCR) Coronavirus HKU1 (PCR) Coronavirus 229E (PCR) SARS-CoV-2 (PCR) Coronavirus NL63 (PCR) Human Metapneumovir PCR Influenza Type A (PCR) Influenza Type B (PCR) M. pneumoniae (PCR) Parainfluenza 1 (PCR) Parainfluenza 2 (PCR) Parainfluenza 3 (PCR) Parainfluenza 4 (PCR) RSV (PCR) Entero/Rhino (PCR) 04/08/23 04/08/23 14:43 14:31 WBC 11.14 H RBC 5.65 H Hgb 16.2 H Hct 48.8 H MCV 86.4 MCH 28.7 MCHC 33.2 RDW Std Deviation 53.7 H RDW Coeff of Brayan 17.8 H Plt Count 248 MPV 10.1 Immature Gran % (Auto) 1.2 Neut % (Auto) 84.5 Lymph % (Auto) 6.8 [place] % (Auto) 7.1 Eos % (Auto) 0.1 Baso % (Auto) 0.3 Neut # (Auto) 9.42 H Lymph # (Auto) 0.76 L [place] # (Auto) 0.79 H Eos # (Auto) 0.01 Baso # (Auto) 0.03 Immature Gran # (Auto) 0.13 Absolute Nucleated RBC 0.04 Nucleated RBC % (auto) 0.4 PT INR Sodium Potassium Chloride Carbon Dioxide Anion Gap BUN Creatinine Est Cr Clr Drug Dosing Est GFR ( Amer) Est GFR (Non-Af Amer) BUN/Creatinine Ratio Glucose POC Glucose Lactate Calcium Magnesium Total Bilirubin Direct Bilirubin AST ALT Alkaline Phosphatase Troponin I High Sens Total Protein Albumin Procalcitonin Urine Color Dark Yellow Urine Appearance Clear Urine pH 5.5 Ur Specific Fellows 1.023 Urine Protein 2+ H Urine Glucose (UA) Negative Urine Ketones 1+ H Urine Blood Negative Urine Nitrite Negative Urine Bilirubin Negative Urine Urobilinogen Negative Ur Leukocyte Esterase Negative Urine WBC (Auto) 1-5 Urine RBC (Auto) 0-4 U Hyaline Cast (Auto) 1-5 U Epithel Cells (Auto) 20-30 H Urine Bacteria (Auto) Negative Adenovirus (PCR) B. pertussis DNA (PCR) B.parapertussis DNA PCR C. pneumoniae DNA (PCR) Coronavirus OC43 (PCR) Coronavirus HKU1 (PCR) Coronavirus 229E (PCR) SARS-CoV-2 (PCR) Coronavirus NL63 (PCR) Human Metapneumovir PCR Influenza Type A (PCR) Influenza Type B (PCR) M. pneumoniae (PCR) Parainfluenza 1 (PCR) Parainfluenza 2 (PCR) Parainfluenza 3 (PCR) Parainfluenza 4 (PCR) RSV (PCR) Entero/Rhino (PCR) Diagnostic Findings Chest X-Ray 04/08/23 14:21 XR chest 1V portable HISTORY: Sepsis COMPARISON: None. FINDINGS: No pneumothorax. Possible trace left pleural effusion. Left subclavian Port-A-Cath runs at the proximal SVC. There are surgical clips overlying the right mid chest wall. Mild diffuse interstitial thickening most pronounced within the periphery and lung bases. There are low lung volumes. This suggests chronic fibrotic change. The heart is borderline enlarged. There are calcifications within the aortic knob. Focus of interstitial thickening within the right midlung zone is indeterminate but may also be chronic. IMPRESSION: 1. Low lung volumes with diffuse interstitial thickening suggestive of chronic fibrotic change. 2. Possible trace left pleural effusion. 3. Focal interstitial thickening within the right midlung zone may also represent a component of the suspected fibrotic change. A superimposed pneu monitis could also have a similar appearance. ACT 112: Negative or not required by law. Electronically signed by: Cristopher Moody M.D. 04/08/2023 3:[address] 04/08/23 14:22 CT head/brain wo con CLINICAL HISTORY: AMS Technique: Contiguous axial CT images of the head were acquired from the base of the skull to the vertex without intravenous contrast administration. Images were viewed in brain, subdural and bone windows. Automated dose lowering techniques and/or adjustment according to patient size were utilized for this exam. Comparison: None available at the time of this dictation. Findings: Areas of decreased attenuation are present in the periventricular and subcortical white matter bilaterally consistent with small vessel ischemic disease. Generalized cerebral atrophy with commensurate enlargement of the ventricles, sulci, and cisterns is also present. There is no acute intracranial hemorrhage or evidence of acute territorial infarction. No shift of the midline structures, mass effect, or extra-axial abnormalities are shown. Atherosclerotic calcifications are present in the intracranial segments of the internal carotid arteries. Imaged portions of the paranasal sinuses and mastoid air cells are clear. The orbits appear normal. There are no acute fractures of the calvaria or scalp swelling. Impression: No acute intracranial hemorrhage, no evidence of acute territorial infarction or other acute intracranial disease process. ACT 112: Negative or not required by law. Electronically signed by: John Miranda M.D. 04/08/2023 4:48 PM Abdomen/Pelvis CT 04/08/23 15:36 CT abd pelvis IV con only CLINICAL HISTORY: AMS, transaminitis TECHNIQUE: Helical axial images of the abdomen and pelvis were obtained and displayed. Automated dose lowering techniques and/or adjustment according to patient size were utilized for this exam. This exam was performed with intravenous contrast. CT DOSE: 2321.24 mGy.cm COMPARISON: None available at the time of this dictation. FINDINGS: Lower chest: Extensive bronchiectasis emphysema noted. Liver: There is a 14 mm hypoechoic lesion in left lobe of the liver. Additional ill-defined heterogeneity of the liver is seen. Hepatic steatosis versus edema is seen. Hepatomegaly is seen with the liver measuring approximately 18 mm in craniocaudal dimension at the midclavicular line. Gallbladder and biliary tree: Patient is status post cholecystectomy. Physiologic prominence of the biliary ducts is noted. Pancreas: Unremarkable, no focal lesions. Spleen: Unremarkable. Adrenals: Unremarkable. Kidneys and ureters: Unremarkable. Bladder: Mcmillan catheter is seen. Reproductive organs: Patient is status post hysterectomy. Bowel: Unremarkable. Lymph nodes Retroperitoneal: Lexis hepatis nodes measure up to 13 mm in diameter. Additional subcentimeter retroperitoneal nodes are seen. Pelvic: Unremarkable. Mesenteric: Unremarkable. Peritoneum: There is a 17 mm enhancing nodule in the right lower quadrant measuring 17 x 10 mm. Vessels: Atherosclerotic calcifications are seen. Abdominal wall: Injection granuloma is seen in the right mid abdomen. Bones: Mild degenerative changes are seen. IMPRESSION: 1. Hepatomegaly and heterogeneously decreased attenuation is seen with suggestion of nodularity, compatible with hepatitis in this patient with elevated liver enzymes. Lexis hepatis lymphadenopathy is likely reactive. Follow-up to resolution is recommended to exclude underlying liver mass. 2. Additional findings as above. ACT 112: Negative or not required by law. Electronically signed by: John Miranda M.D. 04/08/2023 4:57 PM ECG Additional Comments: 08-APR-2023 14:19:12 [facility]-EDSTAT ROUTINE RETRIEVAL Sinus tachycardia Possible Anterior infarct , age undetermined Abnormal ECG When compared with ECG of 09-SEP-2014 14:37, Vent. rate has increased BY 43 BPM Borderline criteria for Anterior infarct are now Present T wave amplitude has increased in Anterior leads 25mm/s10mm/[id number] 243CID: 22Unconfirmed Vent. rate 121 BPM MS interval 144 ms QRS duration 74 ms QT/QTc 304/431 ms Code Status & VTE Plan Code Status Full code - discussed with son on the phone Supervising Physician Co-Signing Physician Notes I have seen and examined the patient and have discussed the case with the provider above. I agree with the assessment and plan as stated with the following exceptions. 67-year-old female with history of lung cancer status pos tchemotherapy and radiation presents with metabolic encephalopathy. Previous records are not available but have been requested. After fluid resuscitation in the ER she is improving with her mentation and is able to assess that she is in the hospital and was recently sick. She is still very somnolent and history is limited. She is breathing comfortably on oxy mask oxygenating 99% at 4 L/min. She is a morbidly obese female. Pupils are equal and round and reactive to light bilaterally. Cardiac exam reveals S1-S2 heard with no murmurs gallops or rubs. She has no peripheral edema. Regular rate and rhythm auscultated. Extremities are warm and well-perfused. No gross focal neuromuscular deficits although limited exam secondary to obtunded state. No trauma to head or body that can be visualized. Lab work reviewed with multiple abnormalities. White blood cell count is elevated to 11, hemoglobin hematocrit is 16.2/48.8 indicative of dehydration component. Platelet is normal at 248. An ABG performed feels a normal pH of 7.42 with a normal PCO2 of 36. Sodium is 135, potassium 5.5, chloride 94, CO2 21. She has an anion gap of 20 a BUN of 77 and a creatinine of 1.45 with unknow n baseline. CHEM panel is suggestive of dehydration. Glucose was initially 57 with hypoglycemia likely contributed to obtunded state. Dextrose was given and repeat glucose was 120. Calcium elevated at 11.1 secondary to dehydration. AST and ALT are elevated at 143 and 108 respectively. Alk phos is elevated at 782. Imaging includes a CT abdomen pelvis with IV contrast revealing a 1.7 x 1 cm e nhancing nodule in the right lower quadrant adjacent to the sacrum which may represent ectopic tissue of uncertain etiology. There is also an lesion in the left lower lobe of the liver with the a an ill-defined heterogeneity of the liver seen with hepatic steatosis versus edema. A physiologic prominence of the bile ducts is noted. Overall imaging is consistent with hepatitis with lexis hepatis lymphadenopathy that is likely reactive. Urinalysis is negative with urine tox pending. She was recently put on oxycodone but only given 20 tablets. It is unclear how much she has taken. As she is coming around mentally and has a normal blood gas, it is felt unnecessary to treat with Narcan. Bio fire is negative. Head imaging with CT is unremarkable. Chest x-ray reveals possible right midlung pneumonitis versus pneumonia with underlying fibrotic change. She was started on Rocephin and azithromycin which will be continued empirically. Blood cultures are pending. Troponin mildly elevated likely secondary to critical illness. She was resuscitated with 3 L of normal saline given in the ER. Mental status was improving as noted above. Acute metabolic encephalopathy secondary to possible pneumonia and dehydration with anion gap metabolic acidosis, acute renal failure in the setting of morbid obesity and MICHELLE requiring CPAP. Agree with plan as noted above. Awaiting serum osmolality, repeat BMP to ensure anion gap is resolving and there is no awesome gap indicative of toxic ingestion present. Cont IVF, empiric antibiotics. Speech consultation to rule out aspiration and PT/OT. Simon, DO
[2023-04-08 18:14] LABS: Troponin I High Sensitivity 49.1 pg/ml (0-14)
[2023-04-08] MEDS ORDERED: ONDANSETRON INJ 2 MG/ML 2 ML VIAL IV PRN (19:09)
[2023-04-08 20:47] LABS: Base Excess ABG -0.7 mEq/L (-9-1.8); HCO3 ABG 23 mmol/L (19-24); PCO2 ABG 36 mmHg (35-46); PO2 ABG 74 mmHg (80-95); pH ABG 7.42 (7.35-7.45)
[2023-04-08 20:48] LABS: Allen Test Pos (Pos)
[2023-04-08 21:17] LABS: Amphetamines+Metham, Urine Neg (Neg); Barbiturates, Urine Neg (Neg); Benzodiazepine, Urine Neg (Neg); Cocaine, Urine Neg (Neg); MDMA (Ecstacy), Urine Pos (Neg); Methadone, Urine Neg (Neg); Opiate, Urine Neg (Neg); Phencyclidine, Urine Neg (Neg)
[2023-04-08] MEDS ORDERED: Patient's HEIGHT &/or WEIGHT Needed STA (22:10)
[2023-04-08] MEDS: D5W AND NSS 1,000 ML IV SCH (23:11)
[2023-04-08] MEDS: HEPARIN SOD 5,000 UNIT/0.5 ML VIAL SQ SCH (23:12)
[2023-04-08] MEDS: guaiFENesin 600 MG TABCR PO SCH (23:13)
--- NOTE | 2023-04-08 23:44 | Magnetic Resonance Report ---
Exam(s): MRI HEAD Without Contrast EXAM: MR Head Without Intravenous Contrast CLINICAL HISTORY: Reason for exam: AMS, hx cva. TECHNIQUE: Magnetic resonance images of the head/brain without intravenous contrast in multiple planes. COMPARISON: CT head from April 08, 2023 FINDINGS: Artifacts: Mild to moderate motion artifact. Brain: Mild cerebral atrophy and moderate patchy periventricular and deep white matter T2 hyperintensities consistent with chronic small vessel disease and/or senescent changes. No areas of diffusion restriction are seen to indicate acute stroke. No hemorrhage. Ventricles: The lateral ventricles are mildly prominent. No hydrocephalus. Bones/joints: Unremarkable. Sinuses: Unremarkable as visualized. No acute sinusitis. Mastoid air cells: Unremarkable as visualized. No mastoid effusion. Orbits: Unremarkable as visualized. IMPRESSION: Mild cerebral atrophy and moderate patchy periventricular and deep white matter T2 hyperintensities consistent with chronic small vessel disease and/or senescent changes. No areas of diffusion restriction are seen to indicate acute stroke. No acute intracranial process is identified. No mass or hemorrhage. Electronically signed by: Chaz Solo MD 04/08/23 23:44 PM
[2023-04-09 04:29] LABS: Albumin Globulin Ratio 1.2 (0.9-2); Albumin Level 3.4 gm/dl (3.4-5.0); BUN Creatinine Ratio 50.5 (10-20); Bilirubin,Total 0.8 mg/dl (0.2-1.0); Calcium 9.8 mg/dl (8.6-10.3); Creatinine Clr Calc Pharmacy 45.8 ml/min; Est GFR (Non-African American) 51.8 ml/min; Globulin 2.9 gm/dl (2.5-4.0); Magnesium 1.8 mg/dl (1.7-2.4); Phosphorus 2.4 mg/dl (2.5-4.9); Potassium 4.2 mmol/L (3.5-5.1); Total Protein 6.3 gm/dl (6.0-8.3)
[2023-04-09] MEDS: CEFEPIME 2,000 MG in SYRINGE 0 ML IV SCH ×2 (04:52→17:09)
[2023-04-09] MEDS ORDERED: oxyCODONE HCL IR 5 MG TAB (IMMEDIATE RELEASE) PO PRN (08:08)
[2023-04-09] MEDS: D5W AND NSS 1,000 ML IV SCH ×3 (08:09→23:06)
[2023-04-09] MEDS ORDERED: NON-FORMULARY MEDICATION (Fluticasone-Umeclidin-Vilanter [Trelegy Ellipta] 200-62.5-25 mcg INH SCH (09:00)
--- NOTE | 2023-04-09 09:31 | CT Scan Report ---
CT chest diagnostic wo con CLINICAL HISTORY: Radiation Pneumonitis TECHNIQUE: Multidetector row helical CT of the chest was performed. Coronal and sagittal reformations were obtained. Automated dose lowering techniques and/or adjustment according to patient size were u tilized for this exam. CT DOSE: 738.68 mGy.cm Comparison: Comparison is made to chest radiograph 04/08/2023 FINDINGS: Lungs and pleura: Bronchiectasis and emphysema are seen most prominent in the right perihilar region. There is some density in the right upper lobe.. No subpleural sparing is seen and no honeycombing is definitely seen. Heart and pericardium: Heart size is normal. No pericardial effusion. Vessels: The pulmonary trunk is enlarged measuring 36 mm. There is moderate atherosclerotic disease. Mediastinum and maria: Unremarkable. Chest wall and lower neck: Unremarkable. Abdomen: Unremarkable. Bones: Degenerative changes in the thoracic spine. 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 Density in the right upper lobe may be related to fibrosis however superimposed infectious/inflammatory process cannot be entir susy excluded. ACT 112: Negative or not required by law. Electronically signed by: John Miranda M.D. 04/09/2023 9:30 AM
[2023-04-09] MEDS: ASPIRIN 81 MG ECTAB PO SCH (09:57)
[2023-04-09] MEDS: ATORVASTATIN 40 MG TAB PO SCH (09:57)
[2023-04-09] MEDS: buPROPion XL 300 MG TABCR PO SCH (09:59)
[2023-04-09] MEDS: guaiFENesin 600 MG TABCR PO SCH ×2 (10:01→20:01)
[2023-04-09] MEDS: HEPARIN SOD 5,000 UNIT/0.5 ML VIAL SQ SCH ×2 (10:21→20:08)
[2023-04-09] MEDS: FLUTICASONE PROPIONATE NA SPR 16 GM BTL SCH (10:22)
[2023-04-09] MEDS: UMECLIDINIUM/VILANTEROL 62.5/25MCG 7 PUFFS/INHALER INH SCH (10:24)
[2023-04-09] MEDS: FLUTICASONE FUROATE 200MCG 14 PUFFS/INHALER INH SCH (10:24)
[2023-04-09] MEDS: LIDOCAINE 5% 1 PATCH TD SCH (10:24)
[2023-04-09 10:32] LABS: Base Excess VBG 1.9 mEq/L; HCO3 VBG 28 mmol/L; Oxygen Saturation VBG < 60.0 %; PCO2 VBG 50 mmHg (38-50); PO2 VBG 32 mmHg; pH VBG 7.36 (7.36-7.41)
[2023-04-09 10:43] LABS: Hematocrit (blood only) 38.7 % (37.0-47.0); Hemoglobin 12.6 g/dl (12.0-16.0); Mean Corpuscular Hemoglobin 28.8 pg (25.0-34.0); Mean Corpuscular Hgb Conc 32.6 g/dL (32.0-36.0); Mean Corpuscular Volume 88.6 fL (80.0-100.0); Mean Platelet Volume 10.1 fL (9.4-12.4); Platelet Count 178 K/uL (130-400); RDW Standard Deviation 54.4 fL (36.4-46.3); Red Blood Count 4.37 M/uL (4.20-5.40); White Blood Count 8.55 K/ul (4.8-10.8)
--- NOTE | 2023-04-09 15:14 | Hospitalist Progress Note ---
Date of Service April 09, 2023 Assessment & Plan (1) Acute respiratory failure with hypoxia: (2) Dehydration: (3) Pneumonia: (4) Elevated transaminase level: Plan: Patient is a 67 yr female with H/O Small cell lung carcinoma s/p chemo and XRT therapy finishing in October 2022, Hx of tobacco use, recurrent pneumonia/radiation pneumonitis, GERD, peptic ulcer disease, and recent admission to [facility] for pneumonia treatment, and was discharged o n 04/02/2023 to home with home health services. Acute Metabolic Encephalopathy Acute on chronic Respiratory failure with Hypoxia Pneumonia/Radiation pneumonitis/Fibrosis H/O Small Cell Lung Cancer H/O MICHELLE on CPAP HS H/O tobacco use disorder Anion Gap Metabolic Acidosis Chronic Oxygen Dependency: On 4-5 L at baseline as per family --MRI Brain:Mild cerebral atrophy and moderate patchy periventricular and deep white matter T2 hyperintensities consistent with chronic small vessel disease and/or senescent changes. No areas of diffusion restriction are seen to indicate acute stroke. No acute intracranial process is identified. No mass or hemorrhage. 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 Density in the right upper lobe may be related to fibrosis however superimposed infectious/inflammatory process cannot be entirely excluded. --S/P chemotherapy, radiation therapy for small cell lung cancer--last dose in August per patient. Follows with in [facility] --Follows with pulmonology, oncology as outpatient --BioFire negative --Obtain old records, HIM consulted -- Procalcitonin 0.62 --Blood Cultures: Negative to date -- Hold narcotics for now --Continue IV fluids Continue azithromycin, cefepime Will consider glucocorticoids if needed Consider pulmonology evaluation Saturating well on 4 L supplemental oxygen Continue CPAP at bedtime Reorient frequently to minimize delirium Will consult palliative care to address goals of care as patient prefers no aggressive measures Hyperkalemia CHALINO on CKD III--Likely Prerenal Received IV fluids Potassium levels normalized Renal function much improved Monitor BMP Hypercalcemia Likely due to dehydration/Malignancy PTH mildly elevated 94 Normal 25 hydroxy vitamin D level Hold calcium/Vit D supplements Calcium levels improved with IV fluids Monitor Elevated Transaminases -CT ABD:There is a 14 mm hypoechoic lesion in left lobe of the liver. Additional ill-defined heterogeneity of the liver is seen. Hepatic steatosis versus edema is seen. Hepatomegaly is seen with the liver measuring approximately 18 mm in c raniocaudal dimension at the midclavicular line. Gallbladder and biliary tree: Patient is status post cholecystectomy. Physiologic prominence of the biliary ducts is noted. --DD: Metastatic disease -- Will obtain liver ultrasound Avoid hepatotoxic agents as able Continue to monitor LFTs --GGT pending --Hepatitis panel pending HTN BP stable Currently not on any medications Monitor HLD Continue atorvastatin H/O CVA MRI as above Continue aspirin, statin DVT Px: Heparin SQ Code Status Full Code for now Family Contact: URSULA Bond (son) [phone], or his Hyun at [phone] Admission and Anticipated Discharge Date Admission Date: April 08, 2023 Subjective Patient is seen and examined at bedside Drowsy during my encounter but oriented x3, answers questions appropriately States having cough, and dyspnea, back pain Poor historian Afebrile today Saturating well on 4 L supplemental oxygen Discussed with patient's Son over the phone Review of Systems Review of Systems: All systems reviewed & are unremarkable except as noted in Subjective Physical Exam Physical Exam: Physical Exam: Vitals signs as noted above General Appearance:Obese, no apparent distress, Chronic ill appearing Head: normocephalic, Atraumatic Eyes: normal inspection, EOMI Neck: supple, Trachea midline Respiratory/Chest: Normal breath sounds, minimal basal crackles, + port No accessory muscle use Cardiovascular: S1, S2, No murmur Abdomen/GI:Soft, Non tender, Bowel sounds present Extremities/Musculoskeletal:normal inspection, no edema Neurologic/Psych:AAOX3, grossly no focal neurological deficits, Lethargic Skin: normal color, warm Results & Data Results & Data Vital Signs (Past 12 Hours) Vital Signs Temp Pulse Resp BP Pulse Ox O2 Del Method O2 Flow Rate 04/09/23 04:58 36.4 C L 77 18 107/70 96 Room Air 4 Laboratory Results Short CBC 04/08/23 04/09/23 Range/Units 14:43 10:07 WBC 11.14 H 8.55 (4.8-10.8) K/ul Hgb 16.2 H 12.6 D (12.0-16.0) g/dl Hct 48.8 H 38.7 (37.0-47.0) % Plt Count 248 178 (130-400) K/uL BMP 04/08/23 04/09/23 14:43 03:20 Sodium 135 L 136 Potassium 5.5 H 4.2 D Chloride 94 L 100 Carbon Dioxide 21 29 BUN 77 H 55 H D Creatinine 1.45 H 1.09 D Glucose 57 L 125 H Calcium 11.1 H 9.8 Liver Function 04/08/23 04/09/23 Range/Units 14:43 03:20 Total Bilirubin 1.0 0.8 (0.2-1.0) mg/dl Direct Bilirubin 0.3 H (0-0.2) mg/dl AST 143 H 126 H (13-39) U/L ALT 108 H 86 H (7-52) U/L Alkaline Phosphatase 782 H 614 H (34-104) U/L Albumin 4.0 3.4 (3.4-5.0) gm/dl Urine 04/08/23 Range/Units 14:31 Urine Color Dark Yellow Urine Appearance Clear (Clear) Urine pH 5.5 (4.5-7.5) Ur Specific [place] 1.023 (1.000-1.030) Urine Protein 2+ H (Negative) Urine Glucose (UA) Negative (Negative)
--- NOTE | 2023-04-09 15:34 | Ultrasound Report ---
ABDOMINAL ULTRASOUND, RIGHT UPPER QUADRANT HISTORY: Hepatitis. COMPARISON: Abdomen and pelvis CT 04/08/2023. FINDINGS: Pancreas: The pancreas demonstrates a normal echotexture. Liver: 21 cm in length. There is heterogeneous echotexture within the liver with a nodular contour espinal ggestive of cirrhosis. A 2.9 cm nodular focus within the left hepatic lobe on image 26 may be due to the heterogeneous liver or focal fat. A hepatic mass is considered less likely but not entirely exclu ded. Follow-up recommended to ensure stability. The portal vein is patent. Gallbladder: The gallbladder is surgically absent. CBD: 6 mm. Right kidney: No hydronephrosis. IMPRESSION: 1. Enlarged and cirrhotic liver. 2. Heterogeneous echotexture throughout the liver which may be due to the cirrhosis. An underlying he patitis could also have a similar appearance. 3. A 2.9 cm nodular focus within the left hepatic lobe on image 26 may be due to the heterogeneous li ben or focal fat. A hepatic mass is considered less likely but not entirely excluded. Follow-up recom mended to ensure stability. ACT 112: Negative or not required by law. Electronically signed by: Cristopher Moody M.D. 04/09/2023 3:32 PM
[2023-04-09] MEDS: AZITHROMYCIN 250 MG in DEXTROSE 5% 250 ML IV SCH (17:08)
[2023-04-10] MEDS: CEFEPIME 2,000 MG in SYRINGE 0 ML IV SCH ×3 (04:05→20:39)
[2023-04-10] MEDS: D5W AND NSS 1,000 ML IV SCH ×3 (05:51→22:34)
[2023-04-10 06:23] LABS: Hematocrit (blood only) 38.2 % (37.0-47.0); Hemoglobin 12.4 g/dl (12.0-16.0); Mean Corpuscular Hgb Conc 32.5 g/dL (32.0-36.0); Mean Corpuscular Volume 89.5 fL (80.0-100.0); Mean Platelet Volume 10.5 fL (9.4-12.4); Platelet Count 158 K/uL (130-400); RDW Coefficient of Variation 17.1 % (11.5-14.5); RDW Standard Deviation 54.3 fL (36.4-46.3); Red Blood Count 4.27 M/uL (4.20-5.40); White Blood Count 6.46 K/ul (4.8-10.8)
[2023-04-10 06:52] LABS: Albumin Globulin Ratio 1.2 (0.9-2); Albumin Level 3.1 gm/dl (3.4-5.0); BUN Creatinine Ratio 39.4 (10-20); Bilirubin,Total 0.7 mg/dl (0.2-1.0); Calcium 9.4 mg/dl (8.6-10.3); Creatinine Clr Calc Pharmacy 73.8 ml/min; Est GFR (African American) 100.7 ml/min; Est GFR (Non-African American) 86.9 ml/min; Globulin 2.6 gm/dl (2.5-4.0); Magnesium 1.2 mg/dl (1.7-2.4); Potassium 3.4 mmol/L (3.5-5.1); Total Protein 5.7 gm/dl (6.0-8.3)
--- NOTE | 2023-04-10 08:14 | Pulmonary Consultation ---
Date of Consultation April 10, 2023 Assessment & Plan (1) Small cell carcinoma metastatic to right lung: (2) Post-radiation pneumonitis: (3) Chronic respiratory failure with hypoxia: (4) MICHELLE (obstructive sleep apnea): (5) COPD (chronic obstructive pulmonary disease): (6) Bronchiectasis: Plan IMPRESSION: 67-year-old female with a significant past medical history of COPD, obstructive sleep apnea, chronic hypoxic respiratory failure, bronchiectasis, and RIGHT upper lobe small colon cancer status post chemoradiation therapy who presents with waxing waning mental status. Pulmonary medicine asked for evaluation given complex pulmonary status. RECOMMENDATIONS: 1. Reported history of small cell carcinoma of the RIGHT upper lobe - Patient is status post chemoradiation therapy at the end of October and into November of this year. Per conversation with the patient's son, she had follow-up scan which demonstrated no uptake at that time. She has been admitted to [facility] on 5 separate occasions in the last year related to pneumonitis and respiratory episodes. Apparently, the patient was just recently discharged and the son reports that this is the state in which she was discharged. He is more concerned with her mental status. He states that her respiratory status is at her baseline. She continues to use 5-5.5 L at baseline which is unchanged. She has Trelegy which she should be encouraged to continue to use. I do not see on her medication list where she has any other therapies directed at her bronchiectasis however this could be considered if she has ongoing issues with worsening cough which does not appear to be the case at this time. Without the lack of prior pulmonary notes, pathology, and oncology notes, I am unaware of what the patient's current status is at this point. Regardless, it sounds as though the patient is currently at her respiratory baseline at this time. 2. Postradiation pneumonitis - Per previous diagnosis. In discussion with the patient's son, this has been ongoing since radiation treatments in October. She has required oxygen since that time and has had 5 separate inpatient admissions since that time as well. On review of chest CT, there does appear to be impressive changes noted throughout the RIGHT-sided lower lung [place] and this would seem to make more sense given recent diagnosis and radiation therapy. Would appreciate outpatient imaging studies to evaluate for comparison. Continue with supplemental oxygen as needed. 3. Chronic respiratory failure with hypoxia - Appears to be at her baseline at this time. ABG does not suggest hypercarbia. Would continue with CPAP at night to prevent this, however. 4. Obstructive sleep apnea -Per reports, the patient has been reluctant in the past. Would encourage this given her altered mental status and risk for CO2 accumulation in the patient with COPD. 5. COPD - Not overtly bronchospastic on exam today. Continue with home therapies. 6. Bronchiectasis - Per discussion with son and imaging studies. Patient without signs/symptoms of flares at this time. No treatment modalities noted on her medication list otherwise. Continue with conservative treatment this point. Certainly consideration for other therapies could be initiated in the outpatient setting if needed. Thank you for allowing us to participate in the care of this patient. Patient appears at her baseline at this time from a pulmonary perspective. Will defer to hospitalist medicine for ongoing evaluation for the patient's mental status. Please feel free to reach out to us if there are any changes. Supervising Physician Co-Signing Physician Notes Patient seen and examined. ENR reviewed and images reviewed. Discussed with VINH and agree with assessment plan as noted. From a respiratory standpoint, the patient appears to be at her baseline. We do not have any prior records or images to review to determine whether or not there is any acute findings on her CT scan although after discussion with her son, she appears to be clinically at her baseline. Patient is without significant respiratory complaints currently. In order to make any long-term prognostic statements, would need to evaluate her prior CT scans to evaluate for temporal and spatial progression. This far out, I do not think she is a candidate for any antifibrotic therapies or steroids and its unclear what she has been treated within the past. Again given the fact that she is on her baseline oxygen requirement, these do not appear to be indicated currently. There does not appear to be component of exacerbation. Also unclear whether the patient has an infectious component with a normal white blood cell count and no fevers however her procalcitonin is borderline elevated. If antibiotics are to be continued, would recommend repeat procalcitonin and potentially tapering antibiotics in the next 2 to 3 days. The son's biggest concern appear to be focused on her encephalopathy and mental status issues. Recommend these be addressed by the primary service as this appears to be the indication for him bringing her to our facility. She can follow-up with her outpatient pulmonary group at [facility]. Addressing CODE STATUS would be appropriate in this patient. History of Present Illness Reason for Consultation: Radiation pneumonitis/Fibrosis Requesting Physician: Dr. Kwan Attending Physician: Jun Kwan MD History of Present Illness Patient is a 67-year-old female with a significant past medical history of GERD, peptic ulcer disease, RIGHT upper lobe small cell lung cancer status post chemo and radiation therapy in October to November of this past year which has demonstrated stability per recent outpatient PET CT scans, and persistent radiation pneumonitis to the lungs. Patient is pleasantly confused and unable to provide significant historical information. I did reach out to the patient's son, Varun, and had extensive conversation regarding her care. Apparently, the patient has been admitted at [facility] on 5 separate occasions since October of this past year with similar presentations. He states that she has seen her primary [place] construction supervisor, Dr. Callaway, for COPD as well as her lung cancer diagnosis. She is currently on 5-5.5 liters at all times at baseline. Son reports that his mother had previously been able to ambulate with the assistance of a walker at home, however since recent discharge from last hospitalization, she has been essentially bedridden and unable to stand. He took her to the [place] emergency department on 03/24 and had a 2-hour conversation with her at that time. He states that this is the last time he has been able to communicate his with his mother as she has not been lucid since that time. She was discharged from [facility] on 04/02 in the same state that she is at this point. Her pulmonary status is unchanged. This is her baseline. Son was concerned given her ongoing change in mental status which prompted him to send his mother to our institution for evaluation. Allergies Allergy/AdvReac Type Severity Reaction Status Date / Time penicillin G Allergy Unknown HIVES, RASH Verified 04/08/23 17:46 aspirin Allergy RASH/ITCHY Verified 04/08/23 17:48 Home Medications Medication Instructions Recorded Confirmed Type albuterol sulfate 90 mcg/actuation 2 puff inhalation Q6HWA PRN 04/08/23 04/08/23 History aerosol inhaler Shortness Of Breath Or Wheezing aspirin 81 mg tablet,delayed 81 mg PO DAILY 04/08/23 04/08/23 History release atorvastatin 80 mg tablet 80 mg PO DAILY 04/08/23 04/08/23 History bupropion HCl 300 mg 24 hr tablet, 300 mg PO DAILY 04/08/23 04/08/23 History extended release calcitriol 0.25 mcg capsule 0.25 mcg PO DAILY 04/08/23 04/08/23 History cholecalciferol (vitamin D3) 50 50 mcg PO DAILY 04/08/23 04/08/23 History mcg (2,000 unit) tablet fluticasone fur. 200 mcg-umeclid 1 inh inhalation DAILY 04/08/23 04/08/23 History 62.5 mcg-vilant 25 mcg inhalat.powder (Trelegy Ellipta) fluticasone propionate 50 2 spray intranasal DAILY 04/08/23 04/08/23 History mcg/actuation nasal spray,suspension ondansetron HCl 8 mg tablet 8 mg PO Q8H PRN Nausea 04/08/23 04/08/23 History oxycodone-acetaminophen 5 mg-325 1 tab PO Q6H PRN Pain 04/08/23 04/08/23 History mg tablet Patient History Medical History (Updated 04/10/23 @ 13:35 by Man Maldonado PA-C) GERD (gastroesophageal reflux disease) Peptic ulcer disease Surgical History (Updated 04/08/23 @ 17:59 by Sheila Hatfield PA-C) H/O section History of ankle surgery Hx of appendectomy Hx of hysterectomy, total Family History (Updated 04/08/23 @ 18:00 by Sheila Hatfield PA-C) Mother Heart disease Brother Lung cancer Social History (Updated 04/08/23 @ 18:00 by Sheila Hatfield PA-C) Smoking Status: Former smoker Tobacco Type: Cigarettes Cigarettes Per Day: 1-2.5 packs/day; Second Hand Exposure: Yes; Do You Dip or Chew Tobacco: No; Tobacco Cessation Education Requested by Patient: No Hx Alcohol Use: No Hx Substance Use: No Preferred Language: Portuguese Communication Ability: Effective Principal Security Architect Required: No Beliefs That Will Affect Care: None Current Living Situation: Family Current Living Situation Comment: granddaughter Davida Other Information That Helps Us Care for You: No Feels Safe at Home: Yes Safety Concerns: Feels Safe At This Time Assistive Devices: Denture - Upper, Denture - Lower and Glasses Assistive Devices Comment: glasses not here Review of Systems Review of Systems: Limited secondary to patient's mental status, however she offers no complaints otherwise. Physical Exam Physical Exam: VITAL SIGNS - Vital signs and nursing notes were reviewed. GENERAL - 67-year-old female who is awake and pleasantly confused. SKIN - Without rashes or lesions. NOSE - Midline and without cyanosis. MOUTH/OROPHARYNX - Without perioral cyanosis. LUNGS - Auscultation reveals coarse breath sounds without wheezes. Slight basilar rales noted. CARDIAC - RRR with S1/S2. No murmur, rubs, or gallops appreciated. ABDOMEN - Abdominal inspection demonstrates an obese abdomen. BS normoactive all four quadrants. No tenderness, palpable masses, or ascites noted. EXTREMITIES - No pretibial edema present. +3/5 radial palpated throughout. PSYCH - A&Ox3 and cooperates fully with examiner. Pt is very pleasant and interacts well with examiner. Results & Data Results & Data Vital Signs (Past 12 Hours) Vital Signs Temp Pulse Pulse Resp BP Pulse Ox O2 Del Method 04/10/23 07:46 71 04/10/23 07:11 36.3 C L 69 20 111/62 97 Nasal Cannula 04/10/23 04:02 36.1 C L 75 17 142/77 H 100 Nasal Cannula 04/09/23 22:30 79 23 L 04/09/23 23:34 36.0 C L 80 22 109/70 91 Nasal Cannula 04/09/23 22:53 79 04/09/23 20:15 Nasal Cannula O2 Flow Rate 04/10/23 07:46 04/10/23 07:11 5 04/10/23 04:02 5 04/09/23 22:30 5 04/09/23 23:34 5 04/09/23 22:53 04/09/23 20:15 4 Laboratory Results 04/10/23 05:36 04/10/23 05:36 PG Care Time/CCT Total # of Minutes Spent Total Time Spent with Patient: Total time spent is greater than 50% in coordination of care (as documented) at patient's floor/unit and/or counseling patient: Coding Level of Care Code 76811 INT INP/OBS CARE 3/75MIN Diagnoses Small cell carcinoma metastatic to right lung C78.01 Post-radiation pneumonitis J70.0 Chronic respiratory failure with hypoxia J96.11 MICHELLE (obstructive sleep apnea) G47.33 COPD (chronic obstructive pulmonary disease) J44.9 Bronchiectasis J47.9
[2023-04-10] MEDS: POTASSIUM CHLORIDE / WTR 10 MEQ/100 ML PLCT IV SCH ×2 (10:56→11:58)
[2023-04-10] MEDS: MAGNESIUM SULFATE / D5W 1 GM/100 ML BAG IV SCH ×2 (10:56→12:57)
[2023-04-10] MEDS: LIDOCAINE 5% 1 PATCH TD SCH (10:57)
[2023-04-10] MEDS: UMECLIDINIUM/VILANTEROL 62.5/25MCG 7 PUFFS/INHALER INH SCH (10:57)
[2023-04-10] MEDS: HEPARIN SOD 5,000 UNIT/0.5 ML VIAL SQ SCH ×2 (10:58→20:40)
[2023-04-10] MEDS: ASPIRIN 81 MG ECTAB PO SCH (10:59)
[2023-04-10] MEDS: guaiFENesin 600 MG TABCR PO SCH ×2 (11:00→20:40)
[2023-04-10] MEDS: buPROPion XL 300 MG TABCR PO SCH (11:00)
[2023-04-10] MEDS: ATORVASTATIN 40 MG TAB PO SCH (11:00)
--- NOTE | 2023-04-10 12:08 | Palliative Care Consultation ---
Date of Consultation April 10, 2023 History of Present Illness Reason for Consultation: Please address goals of Care Attending Physician: Jun Kwan MD History of Present Illness Jaz is a 67yo female with SCLC s/p chemo and XRT therapy that completed in October 2022,along with hx of active smoking/+tobacco use, recurrent pneumonia/radiation pneumonitis, GERD, peptic ulcer disease, and recent admission to [facility] for pneumonia treatment, and was discharged on 04/02/2023 to home with home health services. She presented to [facility] ED 04/08/23 with CC of AMS, which was noted by her home health team. She was hypoxic on arrival with SpO2 88% on RA, this improved to low 90s with 5lpm [place] Biofire panel is negative this admission Allergies Allergy/AdvReac Type Severity Reaction Status Date / Time penicillin G Allergy Unknown HIVES, RASH Verified 04/08/23 17:46 aspirin Allergy RASH/ITCHY Verified 04/08/23 17:48 Home Medications Medication Instructions Recorded Confirmed Type albuterol sulfate 90 mcg/actuation 2 puff inhalation Q6HWA PRN 04/08/23 04/08/23 History aerosol inhaler Shortness Of Breath Or Wheezing aspirin 81 mg tablet,delayed 81 mg PO DAILY 04/08/23 04/08/23 History release atorvastatin 80 mg tablet 80 mg PO DAILY 04/08/23 04/08/23 History bupropion HCl 300 mg 24 hr tablet, 300 mg PO DAILY 04/08/23 04/08/23 History extended release calcitriol 0.25 mcg capsule 0.25 mcg PO DAILY 04/08/23 04/08/23 History cholecalciferol (vitamin D3) 50 50 mcg PO DAILY 04/08/23 04/08/23 History mcg (2,000 unit) tablet fluticasone fur. 200 mcg-umeclid 1 inh inhalation DAILY 04/08/23 04/08/23 History 62.5 mcg-vilant 25 mcg inhalat.powder (Trelegy Ellipta) fluticasone propionate 50 2 spray intranasal DAILY 04/08/23 04/08/23 History mcg/actuation nasal spray,suspension ondansetron HCl 8 mg tablet 8 mg PO Q8H PRN Nausea 04/08/23 04/08/23 History oxycodone-acetaminophen 5 mg-325 1 tab PO Q6H PRN Pain 04/08/23 04/08/23 History mg tablet Patient History Medical History (Updated 04/08/23 @ 20:19 by Jm Hou DO) GERD (gastroesophageal reflux disease) Peptic ulcer disease Surgical History (Updated 04/08/23 @ 17:59 by Sheila Hatfield PA-C) H/O section History of ankle surgery Hx of appendectomy Hx of hysterectomy, total Family History (Updated 04/08/23 @ 18:00 by Sheila Hatfield PA-C) Mother Heart disease Brother Lung cancer Social History (Updated 04/08/23 @ 18:00 by Sheila Hatfield PA-C) Smoking Status: Former smoker Tobacco Type: Cigarettes Cigarettes Per Day: 1-2.5 packs/day; Second Hand Exposure: Yes; Do You Dip or Chew Tobacco: No; Tobacco Cessation Education Requested by Patient: No Hx Alcohol Use: No Hx Substance Use: No Preferred Language: Frisian Communication Ability: Effective Hair And Makeup Designer Required: No Beliefs That Will Affect Care: None Current Living Situation: Family Current Living Situation Comment: granddaughter Davida Other Information That Helps Us Care for You: No Feels Safe at Home: Yes Safety Concerns: Feels Safe At This Time Assistive Devices: Denture - Upper, Denture - Lower and Glasses Assistive Devices Comment: glasses not here Review of Systems Review of Systems: Unobtainable due to cognitive status and Unobtainable due to reduced consciousness Results & Data Vital Signs (Past 12 Hours) Vital Signs Temp Pulse Pulse Resp BP Pulse Ox O2 Del Method 04/10/23 11:40 36.4 C L 75 18 124/81 95 Nasal Cannula 04/10/23 08:00 Nasal Cannula 04/10/23 07:46 71 04/10/23 07:11 36.3 C L 69 20 111/62 97 Nasal Cannula 04/10/23 04:02 36.1 C L 75 17 142/77 H 100 Nasal Cannula O2 Flow Rate 04/10/23 11:40 5 04/10/23 08:00 5 04/10/23 07:46 04/10/23 07:11 5 04/10/23 04:02 5 Laboratory Results data reviewed, see HPI Diagnostic Findings CT Chest 9/26/23: Interstitial fibrotic changes are seen compatible with radiation fibrosis. Density in the right upper lobe may be related to fibrosis however superimposed infectious/inflammatory process cannot be entirely excluded. CT Abd, 04/08/23: 1. Enlarged and cirrhotic liver. 2. Heterogeneous echotexture throughout the liver which may be due to the cirrhosis. An underlying hepatitis could also have a similar appearance. 3. A 2.9 cm nodular focus within the left hepatic lobe on image 26 may be due to the heterogeneous liver or focal fat. A hepatic mass is considered less likely but not entirely excluded. Follow-up recommended to ensure stability. PG Care Time/CCT Total # of Minutes Spent Total Time Spent with Patient: Total time spent is greater than 50% in coordination of care (as documented) at patient's floor/unit and/or counseling patient: Coding Diagnoses
[2023-04-10 12:27] LABS: HBSAG NON-REACTIVE (NON-REACTIVE); Hepatitis A Antibody IgM NON-REACTIVE (NON-REACTIVE); Hepatitis B Core Antibody IgM NON-REACTIVE (NON-REACTIVE)
[2023-04-10] MEDS: FLUTICASONE FUROATE 200MCG 14 PUFFS/INHALER INH SCH (16:36)
[2023-04-10] MEDS: FLUTICASONE PROPIONATE NA SPR 16 GM BTL SCH (16:37)
[2023-04-10] MEDS: AZITHROMYCIN 250 MG in DEXTROSE 5% 250 ML IV SCH (16:49)
--- NOTE | 2023-04-10 16:56 | Hospitalist Progress Note ---
Date of Service April 10, 2023 Assessment & Plan (1) Acute respiratory failure with hypoxia: (2) Dehydration: (3) Pneumonia: (4) Elevated transaminase level: Plan: Patient is a 67 yr female with H/O Small cell lung carcinoma s/p chemo and XRT therapy finishing in October 2022, Hx of tobacco use, recurrent pneumonia/radiation pneumonitis, GERD, peptic ulcer disease, and recent admission to [facility] for pneumonia treatment, and was discharged o n 04/02/2023 to home with home health services. Acute Metabolic Encephalopathy Acute on chronic Respiratory failure with Hypoxia Pneumonia/Radiation pneumonitis/Fibrosis H/O Small Cell Lung Cancer H/O MICHELLE on CPAP HS H/O tobacco use disorder Anion Gap Metabolic Acidosis Chronic Oxygen Dependency: On 4-5 L at baseline as per family --MRI Brain:Mild cerebral atrophy and moderate patchy periventricular and deep white matter T2 hyperintensities consistent with chronic small vessel disease and/or senescent changes. No areas of diffusion restriction are seen to indicate acute stroke. No acute intracranial process is identified. No mass or hemorrhage. 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 Density in the right upper lobe may be related to fibrosis however superimposed infectious/inflammatory process cannot be entirely excluded. --S/P chemotherapy, radiation therapy for small cell lung cancer--last dose in August per patient. Follows with in [facility] --Follows with pulmonology, oncology as outpatient --BioFire negative --Obtain old records, HIM consulted -- Procalcitonin 0.62 --Blood Cultures: Negative to date -- Hold narcotics for now --Continue IV fluids as needed Continue azithromycin, cefepime for now Saturating well on 5 L supplemental oxygen Continue CPAP at bedtime Reorient frequently to minimize delirium Will consult neurology given no obvious etiology for altered mental status/Lethargy Appreciate pulmonology input Hyperkalemia Now Hypokalemia CHALINO on CKD III--Likely Prerenal Received IV fluids Potassium levels normalized Monitor BMP Cr back to baseline Hypercalcemia Likely due to dehydration/Malignancy PTH mildly elevated 94 Normal 25 hydroxy vitamin D level Hold calcium/Vit D supplements Calcium levels normalized with IV fluids Monitor Elevated Transaminases -CT ABD:There is a 14 mm hypoechoic lesion in left lobe of the liver. Additional ill-defined heterogeneity of the liver is seen. Hepatic steatosis versus edema is seen. Hepatomegaly is seen with the liver measuring approximately 18 mm in craniocaudal dimension at the midclavicular line. Gallbladder and biliary tree: Patient is status post cholecystectomy. Physiologic prominence of the biliary ducts is noted. --DD: Metastatic disease --Liver USD:Enlarged and cirrhotic liver. Heterogeneous echotexture throughout the liver which may be due to the cirrhosis. An underlying hepatitis could also have a similar appearance. A 2.9 cm nodular focus within the left hepatic lobe on image 26 may be due to the heterogeneous liver or focal fat. A hepatic mass is considered less likely but not entirely excluded. Follow-up recommended to ensure stability. Avoid hepatotoxic agents as able Monitor LFTs --GGT 1802 --Hepatitis panel negative LFTs trending down Will Consider GI eval Inpatient Vs Outpatient HTN BP stable Currently not on any medications Monitor HLD Continue atorvastatin H/O CVA MRI as above Continue aspirin, statin DVT Px: Heparin SQ Code Status Full Code for now Family Contact: URSULA Bond (son) [phone], or his Hyun at [phone] Admission and Anticipated Discharge Date Admission Date: April 08, 2023 Subjective Patient is seen and examined at bedside States feeling extremely tired this morning Less cough, dyspnea today Poor historian Saturating well on baseline supplemental oxygen Denies any chest pain, dizziness, abdominal pain Continues to be lethargic Review of Systems Review of Systems: All systems reviewed & are unremarkable except as noted in Subjective Physical Exam Physical Exam: Physical Exam: Vitals signs as noted above General Appearance:Obese, no apparent distress, Chronic ill appearing Head: normocephalic, Atraumatic Eyes: normal inspection, EOMI Neck: supple, Trachea midline Respiratory/Chest: Normal breath sounds, minimal basal crackles, + port No accessory muscle use Cardiovascular: S1, S2, No murmur Abdomen/GI:Soft, Non tender, Bowel sounds present Extremities/Musculoskeletal:normal inspection, no edema Neurologic/Psych:AAOX3, grossly no focal neurological deficits, Lethargic Skin: normal color, warm Results & Data Results & Data Vital Signs (Past 12 Hours) Vital Signs Temp Pulse Pulse Resp BP Pulse Ox O2 Del Method 04/10/23 15:42 71 04/10/23 15:40 36.3 C L 71 19 128/87 99 Nasal Cannula 04/10/23 11:40 36.4 C L 75 18 124/81 95 Nasal Cannula 04/10/23 08:00 Nasal Cannula 04/10/23 07:46 71 04/10/23 07:11 36.3 C L 69 20 111/62 97 Nasal Cannula O2 Flow Rate 04/10/23 15:42 04/10/23 15:40 5 04/10/23 11:40 5 04/10/23 08:00 5 04/10/23 07:46 04/10/23 07:11 5 Laboratory Results Short CBC 04/10/23 Range/Units 05:36 WBC 6.46 (4.8-10.8) K/ul Hgb 12.4 (12.0-16.0) g/dl Hct 38.2 (37.0-47.0) % Plt Count 158 (130-400) K/uL BMP 04/10/23 05:36 Sodium 140 Potassium 3.4 L Chloride 106 Carbon Dioxide 28 BUN 28 H D Creatinine 0.71 D Glucose 132 H Calcium 9.4 Liver Function 04/08/23 04/10/23 Range/Units 20:37 05:36 Total Bilirubin 0.7 (0.2-1.0) mg/dl GGT 1802 H (3-65) U/L AST 98 H (13-39) U/L ALT 69 H (7-52) U/L Alkaline Phosphatase 548 H (34-104) U/L Albumin 3.1 L (3.4-5.0) gm/dl
--- NOTE | 2023-04-10 21:15 | Electrocardiogram Report ---
Test Reason : Blood Pressure : / mmHG Vent. Rate : 121 BPM Atrial Rate : 121 BPM P-R Int : 144 ms QRS Dur : 074 ms QT Int : 304 ms P-R-T Axes : 043 011 080 degrees QTc Int : 431 ms Sinus tachycardia Possible Anterior infarct , age undetermined Abnormal ECG When compared with ECG of 09-SEP-2014 14:37, Vent. rate has increased BY 43 BPM Borderline criteria for Anterior infarct are now Present T wave amplitude has increased in Anterior leads Confirmed by Billy Flood ([id number]) on 04/10/2023 9:15:11 PM Referred By: Confirmed By:Billy Flood
[2023-04-11] MEDS: CEFEPIME 2,000 MG in SYRINGE 0 ML IV SCH ×3 (04:00→19:58)
[2023-04-11] MEDS: D5W AND NSS 1,000 ML IV SCH (06:20)
[2023-04-11 07:04] LABS: Hematocrit (blood only) 36.6 % (37.0-47.0); Hemoglobin 12.2 g/dl (12.0-16.0); Mean Corpuscular Hemoglobin 28.6 pg (25.0-34.0); Mean Corpuscular Hgb Conc 33.3 g/dL (32.0-36.0); Mean Corpuscular Volume 85.9 fL (80.0-100.0); Mean Platelet Volume 10.3 fL (9.4-12.4); Platelet Count 145 K/uL (130-400); RDW Coefficient of Variation 16.1 % (11.5-14.5); RDW Standard Deviation 49.9 fL (36.4-46.3); Red Blood Count 4.26 M/uL (4.20-5.40)
[2023-04-11 07:20] LABS: Anion Gap 6 (3-11); BUN Creatinine Ratio 20.3 (10-20); Blood Urea Nitrogen 12 mg/dl (6-23); Calcium 8.6 mg/dl (8.6-10.3); Carbon Dioxide 28 mmol/L (21-32); Chloride 100 mmol/L (98-107); Creatinine Clr Calc Pharmacy 88.3 ml/min; Est GFR (African American) 108.4 ml/min; Est GFR (Non-African American) 93.5 ml/min; Glucose 102 mg/dl (70-99(Fasting)); Potassium 3.2 mmol/L (3.5-5.1); Sodium 134 mmol/L (136-145)
[2023-04-11] MEDS: buPROPion XL 300 MG TABCR PO SCH (08:07)
[2023-04-11] MEDS: ASPIRIN 81 MG ECTAB PO SCH (08:07)
[2023-04-11] MEDS: ATORVASTATIN 40 MG TAB PO SCH (08:07)
[2023-04-11] MEDS: guaiFENesin 600 MG TABCR PO SCH ×2 (08:08→19:51)
[2023-04-11] MEDS: LIDOCAINE 5% 1 PATCH TD SCH (08:09)
[2023-04-11] MEDS: HEPARIN SOD 5,000 UNIT/0.5 ML VIAL SQ SCH ×2 (08:10→20:15)
[2023-04-11] MEDS ORDERED: POTASSIUM CHLORIDE CRTAB 20 MEQ TABCR PO ONE (08:53)
[2023-04-11] MEDS ORDERED: NSS + 20MEQ KCL 20 MEQ/1,000 ML BAG IV SCH (09:00)
[2023-04-11 09:26] LABS: Alanine Aminotransferase 81 U/L (7-52); Albumin Globulin Ratio 1.1 (0.9-2); Alkaline Phosphatase 535 U/L (34-104); Aspartate Aminotransferase 115 U/L (13-39); Bilirubin Direct 0.3 mg/dl (0-0.2); Bilirubin,Total 0.9 mg/dl (0.2-1.0); Globulin 2.7 gm/dl (2.5-4.0); Phosphorus < 1.0 mg/dl (2.5-4.9); Total Protein 5.7 gm/dl (6.0-8.3)
[2023-04-11] MEDS ORDERED: SODIUM PHOSPHATE 3 MMOL/1 ML INFUSION IV ONE ×2 (09:27→17:00)
[2023-04-11] MEDS ORDERED: SODIUM PHOSPHATE 24 MMOL in SODIUM CHLORIDE 0.9% 500 ML IV ONE (09:45)
--- NOTE | 2023-04-11 10:00 | Neurology Consultation ---
Date of Consultation April 11, 2023 Assessment & Plan (1) Acute encephalopathy: (2) Chronic cerebral ischemia: (3) Small cell carcinoma metastatic to right lung: (4) MICHELLE (obstructive sleep apnea): (5) COPD (chronic obstructive pulmonary disease): (6) Post-radiation pneumonitis: Plan This patient has an encephalopathy of an acute nature likely multifactorial. Although her O2 saturations are reasonable, she may not be perfusing her MARINE PAINTER as well as she should. She has multiple pulmonary problems including recent pneumonia, COPD, and post radiation pneumonitis. In addition she has small-cell carcinoma in the right lung post chemotherapy and radiation In addition she has severe obstructive sleep apnea and will likely be more confused in the concrete placement equipment operator than later in the day. She is a history of nonspecific small stroke in the past (I have no details) MRI shows moderate old small-vessel ischemic disease. Although many tests have been performed and have been unremarkable, I cannot exclude MARINE PAINTER metastases (without contrast the MRI may not show these). A MARINE PAINTER perfusion issue is possible. She has considerable hypophosphatemia and hypomagnesemia which could give encephalopathy. She is not having seizure activity. Recommendations: 1. Consider CT angiography of the head and neck to evaluate vasculature for MARINE PAINTER perfusion 2. Replace phosphorus and magnesium 3. Consider TSH, B12, and Lyme antibody titers. 4. I see no indication for lumbar puncture at this time. 5. Consider EEG but I am not certain this would be helpful at this time. 6. Consider MRI of the brain with contrast to evaluate for metastases 7. Consider CPAP or BiPAP for her obstructive sleep apnea overnight 8. I will follow and make additional recommendations pending clinical course and the above test results. Overall, I spent a total of 100 minutes with this case including review of records, review of MRI films, direct evaluation the patient at bedside, report generation, and discussion of the case with the patient and RN at bedside as well as Dr. Heidy Hamilton and Dr. Kwon, including differential diagnosis and treatment options. History of Present Illness Reason for Consultation: Patient is a 67-year-old, who I was asked to see the request of Dr. Kwan, for neurologic consultation regarding acute encephalopathy. Requesting Physician: Dr. Kwan Attending Physician: Jun Kwan MD History of Present Illness This patient has a history of hypertension, depression and anxiety and apparently had a stroke of some nature back in 2010 (patient thought it was 2014). I do not have any records or more information regarding this stroke which was likely small vessel ischemic disease. COPD with chronic hypoxic respiratory failure, bronchiectasis, and eosinophilic asthma. Recently she was diagnosed with small-cell lung cancer particularly in the right upper lobe and is post radiation therapy, finished in October of this year, and chemotherapy (unknown medication/treatment). She is post pneumonia treated from March 25 through April 02 at [facility] in [place]. The patient was diagnosed with severe obstructive sleep apnea but has refused CPAP. The patient was admitted April 08 with confusion and hypoxia. In the ER she was noted to be disoriented. She is remained somewhat confused and disoriented since. On admission, white count was 11, hemoglobin 16 hematocrit 48.8. Urinalysis was unremarkable Chem profile revealed an increased potassium, BUN of 77, creatinine 1.95, glucose of 57. AST was 143, ALT 108, alk-phos 782. Ammonia level was normal at 33 but troponin was increased at 49 and procalcitonin was 0.6. Lactate was 1.9. Hepatitis cultures were negative. Vitamin-D was 81. Chest x-ray showed some right lower lobe changes. CT scan of the head was unremarkable. CT scan of the abdomen pelvis shows hepatomegaly and changes consistent with hepatitis. MRI of the brain revealed mild generalized atrophy and moderate old small-vessel ischemic disease. There was a concern about a left parieto-occipital tiny acute infarct but this was not apparent by the original interpretation on MRI. I reviewed these films with Dr. Moody and the consensus was that she did not have any type of acute stroke. Contrast was not given to this MRI films I reviewed. Today, CBC was unremarkable. Chem profile was remarkable for phosphorus of less than 1 and a magnesium of 1 0. Direct bili was 0.3, out phos was 535, AST 115, ALT 80. She complains of some central sternal chest pain that does not radiate. She also has a mild bifrontal headache. Allergies Allergy/AdvReac Type Severity Reaction Status Date / Time penicillin G Allergy Unknown HIVES, RASH Verified 04/08/23 17:46 aspirin Allergy RASH/ITCHY Verified 04/08/23 17:48 Home Medications Medication Instructions Recorded Confirmed Type albuterol sulfate 90 mcg/actuation 2 puff inhalation Q6HWA PRN 04/08/23 04/08/23 History aerosol inhaler Shortness Of Breath Or Wheezing aspirin 81 mg tablet,delayed 81 mg PO DAILY 04/08/23 04/08/23 History release atorvastatin 80 mg tablet 80 mg PO DAILY 04/08/23 04/08/23 History bupropion HCl 300 mg 24 hr tablet, 300 mg PO DAILY 04/08/23 04/08/23 History extended release calcitriol 0.25 mcg capsule 0.25 mcg PO DAILY 04/08/23 04/08/23 History cholecalciferol (vitamin D3) 50 50 mcg PO DAILY 04/08/23 04/08/23 History mcg (2,000 unit) tablet fluticasone fur. 200 mcg-umeclid 1 inh inhalation DAILY 04/08/23 04/08/23 History 62.5 mcg-vilant 25 mcg inhalat.powder (Trelegy Ellipta) fluticasone propionate 50 2 spray intranasal DAILY 04/08/23 04/08/23 History mcg/actuation nasal spray,suspension ondansetron HCl 8 mg tablet 8 mg PO Q8H PRN Nausea 04/08/23 04/08/23 History oxycodone-acetaminophen 5 mg-325 1 tab PO Q6H PRN Pain 04/08/23 04/08/23 History mg tablet Patient History Medical History GERD (gastroesophageal reflux disease) Peptic ulcer disease Surgical History H/O section History of ankle surgery Hx of appendectomy Hx of hysterectomy, total Family History Mother Heart disease Brother Lung cancer Social History (Updated 04/11/23 @ 09:50 by Mamadou Pichardo MD) Smoking Status: Former smoker Tobacco Type: Cigarettes Cigarettes Per Day: 1-2.5 packs/day; Second Hand Exposure: Yes; Do You Dip or Chew Tobacco: No; Hx Alcohol Use: No Hx Substance Use: No Preferred Language: Wallisian Communication Ability: Effective Hazardous Waste Remover Required: No Beliefs That Will Affect Care: None Current Living Situation: Family Current Living Situation Comment: granddaughter Davida current occupational status: retired 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, and worked in a [employer] factory, 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61 Feels Safe at Home: Yes Assistive Devices: Denture - Upper, Denture - Lower and Glasses Review of Systems Constitutional: no fever, no fatigue and no weakness Eyes: no diplopia, no eye pain and no worsening vision Ear, Nose, Mouth, Throat: no ear pain, no tinnitus, no hearing loss, no dizziness, no snoring, no hoarseness and no dysphagia Respiratory: no cough and no dyspnea Cardiovascular: + dyspnea; no chest pain, no palpitations and no lightheadedness Gastrointestinal: no abdominal pain, no nausea and no vomiting Genitourinary: no dysuria, no urinary frequency and no urinary incontinence Musculoskeletal: no back pain, no neck pain, no radicular pain, no joint pain and no myalgia Integumentary: no rash and no lesions Neurologic: + headache(s) and + confusion; no gait abnormality, no localized weakness, no generalized weakness, no tingling, no numbness, no tremor(s), no abnormal movements, no abnormal speech and no memory loss Psychiatric: no depression, no irritability, no anxiety, no difficulty co ncentrating, no confusion and no hallucinations Endocrine: no fatigue and no flushing Hematologic / Lymphatic: no easy bleeding and no easy bruising Allergy / Immunological: no urticaria and no problem reported Exam (Neuro) Physical Exam: The patient is right-handed. Although the patient is sleepy she easily wakes up with voice and although very confused when we saw her at 7:30 a.m., when we went back and saw her at 0915, she was much less confused. She was pleasant and cooperative and followed commands well. She knew her name but looks confused where she was. She feels that she had to get to the ER. She could be reoriented some. She was confused with time and place. Mood was reasonable and affect was appropriate. She could give me considerable details regarding her history (although I do not know how to double check these) The patient did tire easily and gets short of breath with conversation. Pupils are 3 mm bilaterally and reactive to light. Extraocular eye muscles are intact without nystagmus. Visual acuity and visual rosenberg seem normal grossly to confrontation. There are no deficits to sensation in the face in all 3 distributions of the fifth cranial nerve bilaterally. Corneal reflexes are positive bilaterally. Facial strength and symmetry was normal bilaterally. Hearing seems normal bilaterally. Palate moves well without asymmetry. There is normal sternocleidomastoid and trapezius (shoulder shrug) strength bilaterally. Tongue is midline with good strength bilaterally. Neck has a full range of motion without discomfort. There are no cervical bruits bilaterally. There are no cranial or ocular bruits. Heart is without murmur. There is a regular rhythm and rate. Cervical, thoracic, and lumbar spine are nontender to palpation. Gait is not tested sitting up some at bed is reasonable With outstretched arms there is no drift. There are no resting, postural, or action tremors. There is no ataxia with finger to nose testing. There is good facility in the hands. No other abnormal involuntary movements are noted. Motor strength is 5/5 diffusely in the arms bilaterally including deltoids, biceps, triceps, brachioradialis, wrist flexors and extensors, compound mixer, and intrinsic hand muscles. Motor strength is 5/5 diffusely in the legs bilaterally including hip flexors, quadriceps, hamstrings, gastrocnemius, tibialis anterior, tibialis posterior, and Peroneii muscles. Toe extensors are normal and there is good bulk in the extensor digitorum brevis muscles bilaterally. The limbs have good tone without rigidity or spasticity. There is no atrophy noted in the muscles. Muscle bulk is normal, there is no tenderness to palpation, no myotonia to percussion, and no fasciculations seen. Sensory examination is intact to touch and pin throughout all 4 limbs diffusely. Reflexes are 1/4 in the biceps, triceps, brachioradialis, quadriceps, and Achilles tendons bilaterally. There is no clonus bilaterally. Toes are downgoing with plantar stimulation bilaterally. Peripheral pulses are present and of normal quality distally in all 4 limbs. There is no peripheral edema noted in the limbs. Results & Data Vital Signs (Past 12 Hours) Vital Signs Temp Pulse Pulse Resp BP BP Pulse Ox 04/11/23 08:01 36.5 C 70 20 108/64 94 04/11/23 07:23 69 04/11/23 04:07 35.9 C L 66 18 112/77 98 04/10/23 23:30 36.1 C L 66 20 111/74 99 04/10/23 23:09 61 04/10/23 22:44 O2 Del Method O2 Flow Rate 04/11/23 08:01 Nasal Cannula 3 04/11/23 07:23 04/11/23 04:07 Nasal Cannula 3 04/10/23 23:30 Nasal Cannula 5 04/10/23 23:09 04/10/23 22:44 Nasal Cannula 5 PG Care Time/CCT Total # of Minutes Spent Total Time Spent with Patient: Total time spent is greater than 50% in coordination of care (as documented) at patient's floor/unit and/or counseling patient: Coding Level of Care Code 06036 INT INP/OBS CARE 3/75MIN Diagnoses Acute encephalopathy G93.40 Chronic cerebral ischemia I67.82 Small cell carcinoma metastatic to right lung C78.01 MICHELLE (obstructive sleep apnea) G47.33 COPD (chronic obstructive pulmonary disease) J44.9 Post-radiation pneumonitis J70.0 Time Spent (min) 100
[2023-04-11] MEDS: POTASSIUM CHLORIDE / WTR 10 MEQ/100 ML PLCT IV SCH ×2 (10:03→10:14)
--- NOTE | 2023-04-11 11:33 | Gastrointestinal Consultation ---
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 Ammonia level normal, infectious workup unremarkable, but has pneumonitis (suspected XRT related). Does have low PO4, and Mg, MDMA + but could be related to Buproprion use. On her eval, abd imaging studies concerning for L liver mass in setting of cirrhotic appearing pete and elevated LFTs - Will obtain AFP - Ideally would obtain MRI liver to further characterize liver mass, though pt may not cooperate during MRI study. Thus would not order this now, and primary team can order once pt's mental status is improved - Electrolyte correction per primary team - GI to sign off; pls recall prn Supervising Physician Co-Signing Physician Notes Agree with pe as document, port in, soft abdomen Given incidental finding of liver mass noted on liver imaging and known cirrhosis- MRI would be better to characterize the lesion but likely she will be more cooperative once her mental status improves. Agree with further plan of care as documented. History of Present Illness Reason for Consultation: Liver mass Requesting Physician: Dr. Jun Kwan Attending Physician: Dr. Heather Garcia History of Present Illness Patient is a 67 years old female with past medical history including GERD, PUD, small cell lung cancer status postchemotherapy and radiation completed in October, radiation pneumonitis and recently pneumonia, who is currently admitted with altered mental status and confusion. She is unable to provide me with history. Chart reviewed. On admission was noted to be hypoxic, improved with O2 administration, ammonia level is normal, urinalysis without signs of infection, blood culture negative, chest x-ray with signs of pneumonitis, head ct/brain mri wo acute changes, Utox + for MDMA but she's on Buproprion. Phosphorus level is critically low less than 1, magnesium 1 GI consulted as there was a concern for possible liver mass. Liver ultrasound and CT of the abdomen and pelvis showed signs of hepatomegaly and suggestive of a cirrhotic liver. There is a left liver lesion with management [address] scan, 2.9 cm on ultrasound,? Focal fat versus heterogeneous liver tissue. LFTs: Total bilirubin 0.9, AST 115, ALT 81, alkaline phosphatase 535 Allergies Allergy/AdvReac Type Severity Reaction Status Date / Time penicillin G Allergy Unknown HIVES, RASH Verified 04/08/23 17:46 aspirin Allergy RASH/ITCHY Verified 04/08/23 17:48 Home Medications Medication Instructions Recorded Confirmed Type albuterol sulfate 90 mcg/actuation 2 puff inhalation Q6HWA PRN 04/08/23 04/08/23 History aerosol inhaler Shortness Of Breath Or Wheezing aspirin 81 mg tablet,delayed 81 mg PO DAILY 04/08/23 04/08/23 History release atorvastatin 80 mg tablet 80 mg PO DAILY 04/08/23 04/08/23 History bupropion HCl 300 mg 24 hr tablet, 300 mg PO DAILY 04/08/23 04/08/23 History extended release calcitriol 0.25 mcg capsule 0.25 mcg PO DAILY 04/08/23 04/08/23 History cholecalciferol (vitamin D3) 50 50 mcg PO DAILY 04/08/23 04/08/23 History mcg (2,000 unit) tablet fluticasone fur. 200 mcg-umeclid 1 inh inhalation DAILY 04/08/23 04/08/23 History 62.5 mcg-vilant 25 mcg inhalat.powder (Trelegy Ellipta) fluticasone propionate 50 2 spray intranasal DAILY 04/08/23 04/08/23 History mcg/actuation nasal spray,suspension ondansetron HCl 8 mg tablet 8 mg PO Q8H PRN Nausea 04/08/23 04/08/23 History oxycodone-acetaminophen 5 mg-325 1 tab PO Q6H PRN Pain 04/08/23 04/08/23 History mg tablet Patient History Medical History GERD (gastroesophageal reflux disease) Peptic ulcer disease Surgical History H/O section History of ankle surgery Hx of appendectomy Hx of hysterectomy, total Family History Mother Heart disease Brother Lung cancer Social History (Updated 04/11/23 @ 09:50 by Mamadou Pichardo MD) Smoking Status: Former smoker Tobacco Type: Cigarettes Cigarettes Per Day: 1-2.5 packs/day; Second Hand Exposure: Yes; Do You Dip or Chew Tobacco: No; Tobacco Cessation Education Requested by Patient: No Hx Alcohol Use: No Hx Substance Use: No Preferred Language: Albanian Communication Ability: Effective 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 Beliefs That Will Affect Care: None Current Living Situation: Family Current Living Situation Comment: granddahomer Higuera current occupational status: retired current occupation: Former [employer], and worked in a [employer], ret 61 Other Information That Helps Us Care for You: No Feels Safe at Home: Yes Safety Concerns: Feels Safe At This Time Assistive Devices: Denture - Upper, Denture - Lower and Glasses Assistive Devices Comment: glasses not here Review of Systems Review of Systems: Unobtainable due to cognitive status Physical Exam Constitutional: WD/WN, vitals as above + altered mental status, well groomed, cooperative and comfortable Eyes: PERRL, conjunctivae normal, anicteric sclerae ENMT: external ear and nose normal, oropharynx normal Respiratory: normal respiratory effort, lungs clear to auscultation Cardiovascular: RRR, no murmur, no edema Gastrointestinal (Abdomen): normal bowel sounds, soft, nontender, no hepatosplenomegaly Skin: no rashes, warm and dry no jaundice Psychiatric: confused Lymphatic: no lymphedema Results & Data Vital Signs (Past 12 Hours) Vital Signs Temp Pulse Pulse Resp BP Pulse Ox O2 Del Method 04/11/23 08:01 36.5 C 70 20 108/64 94 Nasal Cannula 04/11/23 07:23 69 04/11/23 04:07 35.9 C L 66 18 112/77 98 Nasal Cannula O2 Flow Rate 04/11/23 08:01 3 04/11/23 07:23 04/11/23 04:07 3
--- NOTE | 2023-04-11 13:36 | Electroencephalogram ---
EEG Procedure Note Date of Service April 11, 2023 Start / End Times Start Time: 1214 End Time: 1234 Referring Physician Aquiles Wheat History 67-year-old with history of acute encephalopathy and multiple pulmonary issues. Home Medication List Medication Instructions Recorded Confirmed Type albuterol sulfate 90 mcg/actuation 2 puff inhalation Q6HWA PRN 04/08/23 04/08/23 History aerosol inhaler Shortness Of Breath Or Wheezing aspirin 81 mg tablet,delayed 81 mg PO DAILY 04/08/23 04/08/23 History release atorvastatin 80 mg tablet 80 mg PO DAILY 04/08/23 04/08/23 History bupropion HCl 300 mg 24 hr tablet, 300 mg PO DAILY 04/08/23 04/08/23 History extended release calcitriol 0.25 mcg capsule 0.25 mcg PO DAILY 04/08/23 04/08/23 History cholecalciferol (vitamin D3) 50 50 mcg PO DAILY 04/08/23 04/08/23 History mcg (2,000 unit) tablet fluticasone fur. 200 mcg-umeclid 1 inh inhalation DAILY 04/08/23 04/08/23 History 62.5 mcg-vilant 25 mcg inhalat.powder (Trelegy Ellipta) fluticasone propionate 50 2 spray intranasal DAILY 04/08/23 04/08/23 History mcg/actuation nasal spray,suspension ondansetron HCl 8 mg tablet 8 mg PO Q8H PRN Nausea 04/08/23 04/08/23 History oxycodone-acetaminophen 5 mg-325 1 tab PO Q6H PRN Pain 04/08/23 04/08/23 History mg tablet Inpatient Medication List Aspirin (Aspirin 81 Mg Ectab) 81 mg PO DAILY [facility] Stop: 05/09/23 08:59 Last Admin: 04/11/23 08:07 Dose: Not Given Documented By: Admin: 04/10/23 10:59 Dose: Not Given Documented By: Admin: 04/09/23 09:57 Dose: Not Given Documented By: Atorvastatin Calcium (Atorvastatin 40 Mg Tab) 80 mg PO DAILY [facility] Stop: 05/09/23 08:59 Last Admin: 04/11/23 08:07 Dose: Not Given Documented By: Admin: 04/10/23 11:00 Dose: Not Given Documented By: Admin: 04/09/23 09:57 Dose: Not Given Documented By: GUTIERREZ Bupropion HCl (Bupropion Xl 300 Mg Tabcr) 300 mg PO DAILY JANETTE Stop: 05/09/23 08:59 Last Admin: 04/11/23 08:07 Dose: Not Given Documented By: Admin: 04/10/23 11:00 Dose: Not Given Documented By: Admin: 04/09/23 09:59 Dose: Not Given Documented By: GUTIERREZ Fluticasone Furoate (Fluticasone Furoate 200mcg 14 Puffs/Inhaler) 1 puffs INH DAILY JANETTE Stop: 05/09/23 08:59 Last Admin: 04/10/23 16:36 Dose: Not Given Documented By: Admin: 04/09/23 10:24 Dose: 1 puffs Documented By: ALCIDES Fluticasone Propionate (Fluticasone Propionate Na Spr 16 Gm Btl) 2 sprays NA DAILY JANETTE Stop: 05/09/23 08:59 Last Admin: 04/10/23 16:37 Dose: Not Given Documented By: Admin: 04/09/23 10:22 Dose: 2 sprays Documented By: ALCIDES Guaifenesin (Guaifenesin 600 Mg Tabcr) 1,200 mg PO Q12 JANETTE Stop: 05/08/23 20:59 Last Admin: 04/11/23 08:08 Dose: Not Given Documented By: Admin: 04/10/23 20:40 Dose: Not Given Documented By: Admin: 04/10/23 11:00 Dose: Not Given Documented By: Admin: 04/09/23 20:01 Dose: Not Given Documented By: Admin: 04/09/23 10:01 Dose: Not Given Documented By: Admin: 04/08/23 23:13 Dose: 1,200 mg Documented By: QGV Heparin Sodium (Porcine) (Heparin Sod 5,000 Unit/0.5 Ml Vial) 5,000 units SQ Q12 JANETTE Stop: 05/08/23 20:59 Last Admin: 04/11/23 08:10 Dose: 5,000 units Documented By: Admin: 04/10/23 20:40 Dose: 5,000 units Documented By: Admin: 04/10/23 10:58 Dose: 5,000 units Documented By: KKBeatriz Admin: 04/09/23 20:08 Dose: 5,000 units Documented By: Admin: 04/09/23 10:21 Dose: 5,000 units Documented By: Admin: 04/08/23 23:12 Dose: 5,000 units Documented By: QGV Azithromycin 250 mg/ Dextrose 252.5 mls @ 125 mls/hr IV Q24H JANETTE Stop: 04/12/23 18:02 Last Infusion: 04/10/23 19:08 Dose: 0 mls/hr Documented By: Admin: 04/10/23 16:49 Dose: 125 mls/hr Documented By: Infusion: 04/09/23 19:14 Dose: 0 mls/hr Documented By: Admin: 04/09/23 17:08 Dose: 125 mls/hr Documented By: APOLINAR Cefepime HCl 2,000 mg/ Syringe 20 mls @ 5 mls/min IV Q8H JANETTE; Protocol Stop: 04/16/23 03:59 Last Admin: 04/11/23 11:31 Dose: 5 mls/min Documented By: Admin: 04/11/23 04:00 Dose: 5 mls/min Documented By: Admin: 04/10/23 20:39 Dose: 5 mls/min Documented By: Admin: 04/10/23 12:54 Dose: 5 mls/min Documented By: MERLIN Potassium Chloride/Sodium Chloride (Normal Saline W/20 Meq Kcl) 20 meq in 1,000 mls @ 50 mls/hr IV .Q20H JANETTE; Protocol Stop: 04/12/23 04:59 Last Admin: 04/11/23 10:04 Dose: 50 mls/hr Documented By: RON Sodium Phosphate 24 mmol/ (Sodium Chloride) 508 mls @ 88 mls/hr IV ONE ONE Stop: 04/11/23 15:31 Last Admin: 04/11/23 10:14 Dose: 88 mls/hr Documented By: RON Lidocaine (Lidocaine 5% 1 Patch) 1 patch TD QAM JANETTE Stop: 05/09/23 08:59 Last Admin: 04/11/23 08:09 Dose: 1 patch Documented By: Admin: 04/10/23 10:57 Dose: 1 patch Documented By: Admin: 04/09/23 10:24 Dose: 1 patch Documented By: ALCIDES Miscellaneous (Remove Lidoderm Patch) 1 each N/A DAILY@2100 JANETTE Stop: 05/09/23 20:59 Last Admin: 04/10/23 20:40 Dose: 1 each Documented By: Admin: 04/09/23 20:08 Dose: 1 each Documented By: RYANNE Umeclidinium/Vilanterol (Umeclidinium/Vilanterol 62.5/25mcg 7 Puffs/Inhaler) 1 puffs INH DAILY JANETTE Stop: 05/09/23 08:59 Last Admin: 04/10/23 10:57 Dose: Not Given Documented By: Admin: 04/09/23 10:24 Dose: 1 puffs Documented By: ALCIDES Discontinued Medications Dextrose (Dextrose 50% 50 Ml Syringe) Confirm Administered Dose 50 ml IV .STK- MED ONE Stop: 04/08/23 15:29 Last Admin: 04/08/23 15:37 Dose: Not Given Documented By: QGV Dextrose (Dextrose 50% 50 Ml Syringe) 50 ml IV NOW STA Stop: 04/08/23 15:37 Last Admin: 04/08/23 15:36 Dose: 50 ml Documented By: QGV Sodium Chloride (Nss) 1,000 mls @ 999 mls/hr IV .Q1H1M JANETTE Stop: 04/08/23 15:30 Last Infusion: 04/08/23 16:40 Dose: 0 mls/hr Documented By: Admin: 04/08/23 14:54 Dose: 999 mls/hr Documented By: HS Sodium Chloride (Nss) 1,000 mls @ 999 mls/hr IV .Q1H1M ONE Stop: 04/08/23 15:52 Last Infusion: 04/08/23 17:04 Dose: 0 mls/hr Documented By: Admin: 04/08/23 15:58 Dose: 999 mls/hr Documented By: QGV Sodium Chloride (Nss) 500 mls @ 999 mls/hr IV .Q31M ONE Stop: 04/08/23 16:07 Last Infusion: 04/08/23 17:22 Dose: 0 mls/hr Documented By: Admin: 04/08/23 16:40 Dose: 999 mls/hr Documented By: QGV Cefepime HCl (Maxipime) 2,000 mg in 20 mls @ 5 mls/min IV NOW STA; Protocol Stop: 04/08/23 16:09 Last Admin: 04/08/23 16:39 Dose: 5 mls/min Documented By: QGV Azithromycin 500 mg/ Dextrose 255 mls @ 125 mls/hr IV ONE ONE Stop: 04/08/23 19:33 Last Infusion: 04/08/23 19:56 Dose: 0 mls/hr Documented By: Admin: 04/08/23 17:50 Dose: 125 mls/hr Documented By: QGV Cefepime HCl 2,000 mg/ Syringe 20 mls @ 5 mls/min IV Q12H JANETTE; Protocol Stop: 04/16/23 03:59 Last Admin: 04/10/23 04:05 Dose: 5 mls/min Documented By: Admin: 04/09/23 17:09 Dose: 5 mls/min Documented By: Admin: 04/09/23 04:52 Dose: 5 mls/min Documented By: VAUGHN Dextrose/Sodium Chloride (D5w And Nss) 1,000 mls @ 125 mls/hr IV .Q8H JANETTE Stop: 05/08/23 20:14 Last Infusion: 04/11/23 09:53 Dose: 0 mls/hr Documented By: Admin: 04/11/23 06:20 Dose: 125 mls/hr Documented By: Infusion: 04/11/23 06:20 Dose: 125 mls/hr Documented By: Admin: 04/10/23 22:34 Dose: 125 mls/hr Documented By: Infusion: 04/10/23 22:32 Dose: 125 mls/hr Documented By: Admin: 04/10/23 14:32 Dose: 125 mls/hr Documented By: Infusion: 04/10/23 13:51 Dose: 125 mls/hr Documented By: Admin: 04/10/23 05:51 Dose: 125 mls/hr Documented By: Infusion: 04/10/23 05:51 Dose: 125 mls/hr Documented By: Admin: 04/09/23 23:06 Dose: 125 mls/hr Documented By: Infusion: 04/09/23 23:06 Dose: 125 mls/hr Documented By: Admin: 04/09/23 16:12 Dose: 125 mls/hr Documented By: Infusion: 04/09/23 16:09 Dose: 0 mls/hr Documented By: Admin: 04/09/23 08:09 Dose: 125 mls/hr Documented By: Infusion: 04/09/23 07:35 Dose: 0 mls/hr Documented By: Admin: 04/08/23 23:11 Dose: 125 mls/hr Documented By: QGV Magnesium Sulfate/Dextrose (Magnesium Sulfate / D5w) 1 gm in 100 mls @ 50 mls/hr IV Q2H JANETTE Stop: 04/10/23 13:29 Last Infusion: 04/10/23 14:57 Dose: 0 mls/hr Documented By: Admin: 04/10/23 12:57 Dose: 50 mls/hr Documented By: Infusion: 04/10/23 12:56 Dose: 50 mls/hr Documented By: Admin: 04/10/23 10:56 Dose: 50 mls/hr Documented By: MERLIN Potassium Chloride (K Efrem / Wtr) 10 meq in 100 mls @ 100 mls/hr IV Q1H JANETTE Stop: 04/10/23 11:29 Last Infusion: 04/10/23 12:58 Dose: 0 mls/hr Documented By: Admin: 04/10/23 11:58 Dose: 100 mls/hr Documented By: Infusion: 04/10/23 11:56 Dose: 100 mls/hr Documented By: Admin: 04/10/23 10:56 Dose: 100 mls/hr Documented By: MERLIN Potassium Chloride (K Efrem / Wtr) 10 meq in 100 mls @ 100 mls/hr IV Q1H JANETTE Stop: 04/11/23 10:59 Last Infusion: 04/11/23 11:32 Dose: 0 mls/hr Documented By: Admin: 04/11/23 10:14 Dose: 100 mls/hr Documented By: Infusion: 04/11/23 10:14 Dose: 100 mls/hr Documented By: Admin: 04/11/23 10:03 Dose: 100 mls/hr Documented By: RON Ioversol (Optiray 320 500ml) 90 ml IV ONCE ONE Stop: 04/08/23 16:29 Last Admin: 04/08/23 16:28 Dose: 90 ml Documented By: BONNY Miscellaneous (Patient's Height &/Or Weight Needed) 1 each N/A ONE STA Stop: 04/08/23 22:11 Last Admin: 04/08/23 23:12 Dose: 1 each Documented By: QGV Potassium Chloride (Potassium Chloride Crtab 20 Meq Tabcr) 40 meq PO ONE ONE Stop: 04/11/23 08:54 Last Admin: 04/11/23 10:10 Dose: Not Given Documented By: RLB Description This is a 21 electrode EEG with a single channel dedicated to limited EKG. The electrodes were placed in accordance with the International 10-20 system. Interpretation The predominant background activity consists of an irregular 5-6 Hz activity, of up to 40 mV in amplitude,seen symmetrically distributed over the posterior head regions bilaterally, spreading anteriorly. This activity attenuates some with eye-opening and other alerting procedures. Photic stimulation was performed and elicited no change in the background activity and no abnormal responses were seen. Hyperventilation was performed for three minutes with good effort and again no abnormalities were seen. A considerable and essentially continuous amount of muscle tension artifact activity contaminated the recording frontal head regions bilaterally. There was minimal movement activity. Throughout the recording, no focal abnormalities or potentially epileptogenic discharges were seen. The patient did not enter drowsiness or sleep. In summary, this EEG was abnormal during wakefulness, showing a [id number] generalized cerebral dysrhythmia-slowing of a nonspecific nature.. No focal abnormalities or, potentially epileptogenic discharges was seen. Clinical Correlation The abscence of potentially epileptogenic activity does not exclude a seizure disorder, since interictally, EEGs can be normal. The abnormal slowing is consistent with the encephalopathy could be due to a wide variety of causes. Clinical correlation is required. [facility] EEG Procedure Codes Indication for Procedure (1) Acute encephalopathy: Neurology Neurology: 61621 EEG include record awake & drowsy
--- NOTE | 2023-04-11 14:50 | Hospitalist Progress Note ---
Date of Service April 11, 2023 Assessment & Plan (1) Acute respiratory failure with hypoxia: (2) Dehydration: (3) Pneumonia: (4) Elevated transaminase level: Plan: Patient is a 67 yr female with H/O Small cell lung carcinoma s/p chemo and XRT therapy finishing in October 2022, Hx of tobacco use, recurrent pneumonia/radiation pneumonitis, GERD, peptic ulcer disease, and recent admission to [facility] for pneumonia treatment, and was discharged o n 04/02/2023 to home with home health services. Acute Metabolic Encephalopathy Acute on chronic Respiratory failure with Hypoxia Pneumonia/Radiation pneumonitis/Fibrosis H/O Small Cell Lung Cancer H/O MICHELLE on CPAP HS H/O tobacco use disorder Anion Gap Metabolic Acidosis Chronic Oxygen Dependency: On 4-5 L at baseline as per family --MRI Brain:Mild cerebral atrophy and moderate patchy periventricular and deep white matter T2 hyperintensities consistent with chronic small vessel disease and/or senescent changes. No areas of diffusion restriction are seen to indicate acute stroke. No acute intracranial process is identified. No mass or hemorrhage. 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 Density in the right upper lobe may be related to fibrosis however superimposed infectious/inflammatory process cannot be entirely excluded. --S/P chemotherapy, radiation therapy for small cell lung cancer--last dose in August per patient. Follows with in [facility] --Follows with pulmonology, oncology as outpatient --BioFire negative --Obtain old records, HIM consulted -- Procalcitonin 0.62 --Blood Cultures: Negative to date --EEG:EEG was abnormal during wakefulness, showing a [id number] generalized cerebral dysrhythmia-slowing of a nonspecific nature.. No focal abnormalities or, potentially epileptogenic discharges was seen. --No hypercarbia on blood gas -- Hold narcotics for now --Continue IV fluids as needed Continue azithromycin, cefepime for now Saturating well on 5 L supplemental oxygen Continue CPAP at bedtime Reorient frequently to minimize delirium Appreciate neurology, pulmonology input TSH, B12, Lyme screen pending Will consider CT angio of head and neck; MRI with contrast if no improvement Hyperkalemia Now Hypokalemia CHALINO on CKD III--Likely Prerenal Received IV fluids Potassium levels normalized Monitor BMP Cr back to baseline Hypercalcemia Likely due to dehydration/Malignancy PTH mildly elevated 94 Normal 25 hydroxy vitamin D level Hold calcium/Vit D supplements Calcium levels normalized with IV fluids Monitor Hypophosphatemia Replete electrolytes as needed Monitor Elevated Transaminases -CT ABD:There is a 14 mm hypoechoic lesion in left lobe of the liver. Additional ill-defined heterogeneity of the liver is seen. Hepatic steatosis versus edema is seen. Hepatomegaly is seen with the liver measuring approximately 18 mm in craniocaudal dimension at the midclavicular line. Gallbladder and biliary tree: Patient is status post cholecystectomy. Physiologic prominence of the biliary ducts is noted. --DD: Metastatic disease --Liver USD:Enlarged and cirrhotic liver. Heterogeneous echotexture throughout the liver which may be due to the cirrhosis. An underlying hepatitis could also have a similar appearance. A 2.9 cm nodular focus within the left hepatic lobe on image 26 may be due to the heterogeneous liver or focal fat. A hepatic mass is considered less likely but not entirely excluded. Follow-up recommended to ensure stability. Avoid hepatotoxic agents as able Monitor LFTs --GGT 1802 --Hepatitis panel negative --Alpha-fetoprotein level pending LFTs trending down May need MRI liver once mental status improves Appreciate GI input HTN BP stable Currently not on any medications Monitor HLD Continue atorvastatin H/O CVA MRI as above Continue aspirin, statin DVT Px: Heparin SQ Code Status Full Code for now May need to readdress goals of care Family Contact: URSULA Bond (son) [phone], or his Hyun at [phone] Admission and Anticipated Discharge Date Admission Date: April 08, 2023 Subjective Patient is seen and examined at bedside Remains lethargic but was able to answer questions appropriately Poor historian Reports having some epigastric discomfort Saturating well on baseline supplemental oxygen Review of Systems 2 Review of Systems: All systems reviewed & are unremarkable except as noted in Subjective Physical Exam Physical Exam: Physical Exam: Vitals signs as noted above General Appearance:Obese, no apparent distress, Chronic ill appearing Head: normocephalic, Atraumatic Eyes: normal inspection, EOMI Neck: supple, Trachea midline Respiratory/Chest: Normal breath sounds, minimal basal crackles, + port No accessory muscle use Cardiovascular: S1, S2, No murmur Abdomen/GI:Soft, Non tender, Bowel sounds present Extremities/Musculoskeletal:normal inspection, no edema Neurologic/Psych:AAOX3, grossly no focal neurological deficits, Lethargic Skin: normal color, warm Results & Data Results & Data Vital Signs (Past 12 Hours) Vital Signs Temp Pulse Pulse Resp BP BP Pulse Ox 04/11/23 13:41 36.7 C 78 28 H 105/69 95 04/11/23 11:00 36.7 C 63 18 119/74 97 04/11/23 08:01 36.5 C 70 20 108/64 94 04/11/23 07:23 69 04/11/23 04:07 35.9 C L 66 18 112/77 98 O2 Del Method O2 Flow Rate 04/11/23 13:41 Nasal Cannula 5 04/11/23 11:00 Nasal Cannula 3 04/11/23 08:01 Nasal Cannula 3 04/11/23 07:23 04/11/23 04:07 Nasal Cannula 3 Laboratory Results Short CBC 04/11/23 Range/Units 06:06 WBC 6.80 (4.8-10.8) K/ul Hgb 12.2 (12.0-16.0) g/dl Hct 36.6 L (37.0-47.0) % Plt Count 145 (130-400) K/uL BMP 04/11/23 06:06 Sodium 134 L Potassium 3.2 L Chloride 100 Carbon Dioxide 28 BUN 12 Creatinine 0.59 L Glucose 102 H Calcium 8.6 Liver Function 04/11/23 Range/Units 06:06 Total Bilirubin 0.9 (0.2-1.0) mg/dl Direct Bilirubin 0.3 H (0-0.2) mg/dl AST 115 H (13-39) U/L ALT 81 H (7-52) U/L Alkaline Phosphatase 535 H (34-104) U/L Albumin 3.0 L (3.4-5.0) gm/dl
[2023-04-11] MEDS: AZITHROMYCIN 250 MG in DEXTROSE 5% 250 ML IV SCH (16:21)
[2023-04-11 16:38] LABS: Lyme Ab IgG w/WB Rflx Negative (Negative)
[2023-04-11 16:39] LABS: Lyme Ab IgM w/WB Rflx Negative (Negative)
[2023-04-11] MEDS: FLUTICASONE PROPIONATE NA SPR 16 GM BTL SCH (16:51)
[2023-04-11] MEDS: UMECLIDINIUM/VILANTEROL 62.5/25MCG 7 PUFFS/INHALER INH SCH (16:53)
[2023-04-11] MEDS: FLUTICASONE FUROATE 200MCG 14 PUFFS/INHALER INH SCH (16:53)
[2023-04-11] MEDS ORDERED: SODIUM PHOSPHATE 6 MMOL in SODIUM CHLORIDE 0.9% 250 ML IV ONE (17:15)
--- NOTE | 2023-04-11 21:48 | Electrocardiogram Report ---
Test Reason : Blood Pressure : / mmHG Vent. Rate : 076 BPM Atrial Rate : 076 BPM P-R Int : 174 ms QRS Dur : 082 ms QT Int : 386 ms P-R-T Axes : 036 002 065 degrees QTc Int : 434 ms Normal sinus rhythm Normal ECG When compared with ECG of 08-APR-2023 14:19, Vent. rate has decreased BY 45 BPM Borderline criteria for Anterior infarct are no longer Present T wave amplitude has decreased in Inferior leads Confirmed by Billy Flood ([id number]) on 04/11/2023 9:47:58 PM Referred By: REFERRED SELF Confirmed By:Billy Flood
[2023-04-12] MEDS: CEFEPIME 2,000 MG in SYRINGE 0 ML IV SCH ×3 (03:53→21:40)
[2023-04-12 06:43] LABS: Hematocrit (blood only) 38.1 % (37.0-47.0); Hemoglobin 12.7 g/dl (12.0-16.0); Mean Corpuscular Hemoglobin 28.7 pg (25.0-34.0); Mean Corpuscular Hgb Conc 33.3 g/dL (32.0-36.0); Mean Platelet Volume 10.9 fL (9.4-12.4); Nucleated RBC # (auto) 0.03 K/uL (0.00-0.12); Nucleated RBC % (auto) 0.3 %; Platelet Count 147 K/uL (130-400); RDW Coefficient of Variation 16.7 % (11.5-14.5); RDW Standard Deviation 51.4 fL (36.4-46.3); Red Blood Count 4.43 M/uL (4.20-5.40)
[2023-04-12 06:49] LABS: Calcium 8.3 mg/dl (8.6-10.3); Potassium 3.3 mmol/L (3.5-5.1)
[2023-04-12 06:55] LABS: BUN Creatinine Ratio 20.4 (10-20); Creatinine Clr Calc Pharmacy 96.4 ml/min; Est GFR (African American) 111.6 ml/min; Est GFR (Non-African American) 96.3 ml/min
[2023-04-12 07:04] LABS: Albumin Globulin Ratio 1.2 (0.9-2); Albumin Level 3.1 gm/dl (3.4-5.0); Bilirubin Direct 0.4 mg/dl (0-0.2); Bilirubin,Total 1.2 mg/dl (0.2-1.0); Globulin 2.6 gm/dl (2.5-4.0); Magnesium 0.8 mg/dl (1.7-2.4); Phosphorus 1.6 mg/dl (2.5-4.9); Total Protein 5.7 gm/dl (6.0-8.3)
[2023-04-12 07:07] LABS: Thyroid Stimulating Hormone 1.473 uIu/ml (0.300-4.500)
[2023-04-12] MEDS ORDERED: POTASSIUM PHOS 3 MMOL/1 ML INFUSION IV STA (07:33)
[2023-04-12] MEDS ORDERED: POTASSIUM PHOSPHATE 30 MMOL in SODIUM CHLORIDE 0.9% 500 ML IV ONE (08:00)
[2023-04-12] MEDS: ATORVASTATIN 40 MG TAB PO SCH (08:56)
[2023-04-12] MEDS: FLUTICASONE PROPIONATE NA SPR 16 GM BTL SCH (08:56)
[2023-04-12] MEDS: FLUTICASONE FUROATE 200MCG 14 PUFFS/INHALER INH SCH (08:56)
[2023-04-12] MEDS: MAGNESIUM SULFATE / D5W 1 GM/100 ML BAG IV SCH ×6 (08:56→16:12)
[2023-04-12] MEDS: ASPIRIN 81 MG ECTAB PO SCH (08:56)
[2023-04-12] MEDS: buPROPion XL 300 MG TABCR PO SCH (08:56)
[2023-04-12] MEDS: guaiFENesin 600 MG TABCR PO SCH ×2 (08:57→20:21)
[2023-04-12] MEDS: UMECLIDINIUM/VILANTEROL 62.5/25MCG 7 PUFFS/INHALER INH SCH (08:57)
[2023-04-12] MEDS: HEPARIN SOD 5,000 UNIT/0.5 ML VIAL SQ SCH ×2 (08:57→21:40)
[2023-04-12] MEDS: LIDOCAINE 5% 1 PATCH TD SCH (08:57)
--- NOTE | 2023-04-12 10:16 | Neurology Progress Note ---
Date of Service April 12, 2023 Assessment & Plan (1) Acute encephalopathy: Plan This patient has an encephalopathy of an acute nature, likely multifactorial. Although her O2 saturations are reasonable, she may not be perfusing her DECISION SUPPORT MANAGER as well as she should. She has multiple pulmonary problems including recent pneumonia, COPD, and post radiation pneumonitis. 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 There may be metastasis to the liver. 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 She is a history of nonspecific small stroke in the past (I have no details) MRI shows moderate old small-vessel ischemic disease. Although many tests have been performed and have been unremarkable, I cannot exclude DECISION SUPPORT MANAGER metastases (without contrast the MRI may not show these). A DECISION SUPPORT MANAGER perfusion issue is possible. She has considerable hypophosphatemia and hypomagnesemia which could give encephalopathy. She is not having seizure activity. EEG April 11, was slow in general, without focal abnormalities for potentially epileptogenic discharges. Recommendations: 1. Consider CT angiography of the head and neck to evaluate vasculature for DECISION SUPPORT MANAGER perfusion 2. Replace phosphorus, calcium, and magnesium as you are doing 3. I see no indication for lumbar puncture at this time. 4. Repeat MRI of the brain with contrast, to evaluate for metastases 5. Consider CPAP or BiPAP for her obstructive sleep apnea overnight Overall, I spent a total of 50 minutes with this case including review of records, direct evaluation the patient at bedside, report generation, and discussion of the case with the patient, son, other family members, and RN at bedside as well as Dr. Lorenzo, including differential diagnosis and treatment options. Admission and Anticipated Discharge Date Admission Date: April 08, 2023 Subjective Patient is more confused this morning compared to when we last saw her late morning yesterday. She always feels a little better sitting up, and breathes easier. She has no complaint of pain or headache. Lyme antibody titers, TSH, and B12 were unremarkable. CBC was stable, and Chem profile was remarkable for a markedly low magnesium. Phosphorus and calcium were still a little low and hepatic tests were about the same. Blood pressure is 110/65 Results & Data Vital Signs (Past 12 Hours) Vital Signs Temp Pulse Pulse Resp BP BP Pulse Ox 04/12/23 08:01 36.3 C L 90 18 110/65 92 04/12/23 07:00 87 04/12/23 03:20 36.4 C L 96 H 22 102/71 90 04/12/23 00:15 78 04/11/23 23:16 35.8 C L 81 20 107/64 98 O2 Del Method O2 Flow Rate 04/12/23 08:01 Nasal Cannula 5 04/12/23 07:00 04/12/23 03:20 Nasal Cannula 7 04/12/23 00:15 04/11/23 23:16 Nasal Cannula 5 Exam (Neuro) Physical Exam: She is awake and alert. She is confused with her speech. She is somewhat cooperative will follow some one-step commands. Extraocular eye muscles are intact without nystagmus. There is no facial droop. Coordination is difficult to ascertain in the arms because of mitts being on. Leg strength is symmetrical. PG Care Time/CCT Total # of Minutes Spent Total Time Spent with Patient: Total time spent is greater than 50% in coordination of care (as documented) at patient's floor/unit and/or counseling patient: Coding Level of Care Code 16065 SUB INP/OBS CARE 3/50MIN Diagnoses Acute encephalopathy G93.40 Time Spent (min) 50
[2023-04-12] MEDS ORDERED: OPTIRAY 320 125ml IV ONE (12:20)
[2023-04-12] MEDS ORDERED: GADOBUTROL 65ML VIAL IV ONE (13:46)
--- NOTE | 2023-04-12 13:50 | CT Scan Report ---
CT angio neck with con CLINICAL HISTORY: 67 years-old Female with AMS. Acutely altered mental status. COMPARISON STUDY: CTA head of same day, brain MRI 04/08/2023, chest CT 04/09/2023. TECHNIQUE: Following the IV administration of 120 of Optiray, CT angiogram of the neck was performed from the aortic arch to the skull base. Images are reviewed in the axial, sagittal, and coronal plane s. 3-D MIPS images are created and assessed. IV contrast was administered without complication. All m easurements were calculated based on NASCET criteria. A dose lowering technique was utilized adherin g to the principles of ALARA. FINDINGS: Cardiomegaly with evidence of pulmonary arterial hypertension. Pulmonary fibrotic changes a re again noted. Small layering right pleural effusion. There is no pneumothorax. Left subclavian Infu se-a-Port catheter is partially imaged. Unremarkable thyroid. Soft tissues of the neck are within nor mal limits. No acute intracranial abnormality. Degenerative changes of the cervical spine. Study is motion degraded. Atherosclerosis of the thoracic aortic arch. Patency of the innominate and imaged subclavian arteries. The common carotid arteries are patent. Moderate atherosclerotic plaque o f the right greater than left carotid bulbs resulting in less than 50% stenosis. The imaged internal carotid arteries are patent. The vertebral arteries are codominant and widely patent. No aneurysm, di ssection, high-grade stenosis or arterial occlusion identified. IMPRESSION: Unremarkable CTA of the neck. ACT 112: Negative or not required by law. The above report was generated using voice recognition software. It may contain grammatical, syntax o r spelling errors. Dictated: 04/12/2023 1:08 PM Transcribed: 04/12/2023 1:26 PM Ivet [id number] Aida [id number] Electronically signed by: Aiden Natarajan M.D. 04/12/2023 1:49 PM
[2023-04-12] MEDS: AZITHROMYCIN 250 MG in DEXTROSE 5% 250 ML IV SCH (14:08)
--- NOTE | 2023-04-12 14:39 | Magnetic Resonance Report ---
MR brain wo/w con CLINICAL HISTORY: AMS, h/o small cell ca. R/o brain mets TECHNIQUE: Multiplanar and multisequence MR images of the brain were obtained prior to and following administration of gadolinium contrast. Comparison: Comparison is made to MRI brain 04/08/2023 FINDINGS: Exam is limited by patient motion. No abnormal restricted diffusion is identified. Foci of T2 and FLA IR hyperintensity are noted in the paraventricular areas consistent with chronic small vessel ischemi c disease. Focal encephalomalacia right insular cortex is unchanged. This likely represents a infarct . The ventricular system is normal in appearance. No mass or abnormal enhancement is seen. There is n o mass effect or midline shift. There is no evidence of acute intraparenchymal hemorrhage. No extra a xial fluid collections are seen. The corpus callosum, pituitary gland, and cerebellar tonsils appear grossly unremarkable. Flow voids of the major intracranial arterial vessels are identified. The imaged portions of the para nasal sinuses, mastoid air cells, and orbits are unremarkable. IMPRESSION: No acute abnormalities. ACT 112: Negative or not required by law. Electronically signed by: John Miranda M.D. 04/12/2023 2:38 PM
--- NOTE | 2023-04-12 14:51 | CT Scan Report ---
HEAD CTA HISTORY: Altered mental status. TECHNIQUE: Multiaxial CT images of the head were performed following the intravenous administration o f contrast to evaluate the major cerebral vessels. 3D/MIP images were also obtained. Sagittal and co dinorah reformats were reviewed. A dose lowering technique was utilized adhering to the principles of A RONNIE. COMPARISON: Head CT 04/08/2023. Brain MRI 04/12/2023. FINDINGS: There is no mass, hematoma, midline shift, or acute infarct. Visualized intracranial internet project manager al carotid arteries, distal vertebral arteries, and basilar artery are widely patent. There is no sig nificant stenosis, occlusion, or aneurysm seen within the bilateral ACAs, MCAs, or barrel rifler broach. Patchy periv entricular white matter hypodensity is again noted and favors microvascular ischemic change. There ar e mild atrophic changes within the brain. The major dural venous sinuses are patent. Mild calcified p laque within the bilateral carotid siphons. Hypoplastic bilateral P1 segments. The bilateral barrel rifler broach are fed primarily through the posterior communicating arteries. This is considered to be a normal varian t. IMPRESSION: No significant stenosis, occlusion, or aneurysm within the teller of [place]. ACT 112: Negative or not required by law. Electronically signed by: Cristopher Moody M.D. 04/12/2023 2:48 PM
[2023-04-12 15:27] LABS: MDA negative; MDEA negative; MDMA (Ecstasy) Urine, Confirm negative
--- NOTE | 2023-04-12 17:57 | Hospitalist Progress Note ---
Date of Service April 12, 2023 Assessment & Plan (1) Acute respiratory failure with hypoxia: (2) Dehydration: (3) Pneumonia: (4) Elevated transaminase level: Plan: Patient is a 67 yr female with H/O Small cell lung carcinoma s/p chemo and XRT therapy finishing in October 2022, Hx of tobacco use, recurrent pneumonia/radiation pneumonitis, GERD, peptic ulcer disease, and recent admission to [facility] for pneumonia treatment, and was discharged o n 04/02/2023 to home with home health services. Acute Metabolic Encephalopathy Acute on chronic Respiratory failure with Hypoxia Pneumonia/Radiation pneumonitis/Fibrosis H/O Small Cell Lung Cancer H/O MICHELLE on CPAP HS H/O tobacco use disorder Anion Gap Metabolic Acidosis Chronic Oxygen Dependency: On 4-5 L at baseline as per family --MRI Brain:Mild cerebral atrophy and moderate patchy periventricular and deep white matter T2 hyperintensities consistent with chronic small vessel disease and/or senescent changes. No areas of diffusion restriction are seen to indicate acute stroke. No acute intracranial process is identified. No mass or hemorrhage. --Repeat MRI brain with contrast shows no acute normality. 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 Density in the right upper lobe may be related to fibrosis however superimposed infectious/inflammatory process cannot be entirely excluded. ---BioFire negative --Obtain old records, HIM consulted -- Procalcitonin 0.62 --Blood Cultures: Negative to date --TSH, B12 normal, Lyme screen negative --EEG:EEG was abnormal during wakefulness, showing a [id number]-[id number]-pndakddk generalized cerebral dysrhythmia-slowing of a nonspecific nature.. No focal abnormalities or, potentially epileptogenic discharges was seen. --No hypercarbia on blood gas -- Hold narcotics for now --Continue IV fluids as needed Continue empiric azithromycin, cefepime for now Continue to replete electrolytes as indicated Saturating well on 5 L supplemental oxygen Continue CPAP at bedtime Reorient frequently to minimize delirium Appreciate neurology, pulmonology and gastroenterology input Hypokalemia-repleted, recheck in a.m. Severe hypomagnesemia-repleted IV, recheck in a.m. Hypophosphatemia-repleted, recheck in a.m. CHALINO on CKD III--Likely Prerenal. Status post IV fluids. CHALINO resolved Hypercalcemia with inappropriately elevated PTH at 94-suspected due to malignancy/dehydration Normal 25 hydroxy vitamin D level Hold calcium/Vit D supplements Hypercalcemia resolved Elevated Transaminases -CT ABD:There is a 14 mm hypoechoic lesion in left lobe of the liver. Additional ill-defined heterogeneity of the liver is seen. Hepatic steatosis versus edema is seen. Hepatomegaly is seen with the liver measuring approximately 18 mm in craniocaudal dimension at the midclavicular line. Gallbladder and biliary tree: Patient is status post cholecystectomy. Physiologic prominence of the biliary ducts is noted. --Liver USD:Enlarged and cirrhotic liver. Heterogeneous echotexture throughout the liver which may be due to the cirrhosis. An underlying hepatitis could also have a similar appearance. A 2.9 cm nodular focus within the left hepatic lobe on image 26 may be due to the heterogeneous liver or focal fat. A hepatic mass is considered less likely but not entirely excluded. Follow-up recommended to ensure stability. --GGT 1802 --Hepatitis panel negative --Alpha-fetoprotein level pending -- Avoid hepatotoxic agents as able Monitor LFTs Plan for MRI liver tomorrow as per GI recommendation HLD-hold atorvastatin given elevated LFTs H/O CVA-MRI negative for acute abnormality. Continue aspirin, statin DVT Px: Heparin SQ Code Status: DNR/DNI after reviewing her living will and after discussion with son Updated family at bedside. Family Contact: URSULA Bond (son) [phone], or his Hyun at [phone] Admission and Anticipated Discharge Date Admission Date: April 08, 2023 Subjective Patient was seen and examined at bedside in presence of family. She is awake, alert, oriented to self and having appropriate conversation although she is paranoid and having trust issues with us except for the family. She was on hand mitts during my encounter and was requesting to take them off. Denies any fever, chills, chest pain or shortness of breath no nausea or vomiting Review of Systems Review of Systems: All systems reviewed & are unremarkable except as noted in Subjective Physical Exam Physical Exam: General: Chronically ill-appearing female, sitting comfortably in bed, not in distress, on nasal cannula 5 L HEENT: EOMI, MYRA, MMM Chest: Clear breath sounds bilaterally. Left-sided Port-A-Cath in situ CVS: Regular rate and rhythm, normal heart sounds, no murmur Abdomen: Soft, non tender, not distended, normal bowel sounds Neuro: Awake, alert, oriented, conversing well, non focal Extremities: No cyanosis, clubbing or edema. On hand mitts Psych: Calm, cooperative but paranoid Results & Data Results & Data Vital Signs (Past 12 Hours) Vital Signs Temp Pulse Pulse Resp BP BP Pulse Ox 04/12/23 16:07 36.4 C L 83 18 111/75 90 04/12/23 08:00 04/12/23 11:08 36.5 C 86 18 110/62 94 04/12/23 08:01 36.3 C L 90 18 110/65 92 04/12/23 07:00 87 O2 Del Method O2 Flow Rate 04/12/23 16:07 Nasal Cannula 5 04/12/23 08:00 Nasal Cannula 5 04/12/23 11:08 Nasal Cannula 5 04/12/23 08:01 Nasal Cannula 5 04/12/23 07:00 Laboratory Results Short CBC 04/12/23 Range/Units 05:42 WBC 8.90 (4.8-10.8) K/ul Hgb 12.7 (12.0-16.0) g/dl Hct 38.1 (37.0-47.0) % Plt Count 147 (130-400) K/uL BMP 04/12/23 05:42 Sodium 132 L Potassium 3.3 L Chloride 99 Carbon Dioxide 23 BUN 11 Creatinine 0.54 L Glucose 76 Calcium 8.3 L Liver Function 04/12/23 Range/Units 05:42 Total Bilirubin 1.2 H (0.2-1.0) mg/dl Direct Bilirubin 0.4 H (0-0.2) mg/dl AST 106 H (13-39) U/L ALT 82 H (7-52) U/L Alkaline Phosphatase 542 H (34-104) U/L Albumin 3.1 L (3.4-5.0) gm/dl Diagnostic Findings Brain MRI 04/12/23 10:31 MR brain wo/w con CLINICAL HISTORY: AMS, h/o small cell ca. R/o brain mets TECHNIQUE: Multiplanar and multisequence MR images of the brain were obtained prior to and following administration of gadolinium contrast. Comparison: Comparison is made to MRI brain 04/08/2023 FINDINGS: Exam is limited by patient motion. No abnormal restricted diffusion is identified. Foci of T2 and FLAIR hyperintensity are noted in the paraventricular areas consistent with chronic small vessel ischemic disease. Focal encephalomalacia right insular cortex is unchanged. This likely represents a infarct. The ventricular system is normal in appearance. No mass or abnormal enhancement is seen. There is no mass effect or midline shift. There is no evidence of acute intraparenchymal hemorrhage. No extra axial fluid collections are seen. The corpus callosum, pituitary gland, and cerebellar tonsils appear grossly unremarkable. Flow voids of the major intracranial arterial vessels are identified. The imaged portions of the paranasal sinuses, mastoid air cells, and orbits are unremarkable. IMPRESSION: No acute abnormalities. ACT 112: Negative or not required by law. Electronically signed by: John Miranda M.D. 04/12/2023 2:38 PM Head CTA 04/12/23 10:31 HEAD CTA HISTORY: Altered mental status. TECHNIQUE: Multiaxial CT images of the head were performed following the intravenous administration of contrast to evaluate the major cerebral vessels. 3D/MIP images were also obtained. Sagittal and coronal reformats were reviewed. A dose lowering technique was utilized adhering to the principles of ALARA. COMPARISON: Head CT 04/08/2023. Brain MRI 04/12/2023. FINDINGS: There is no mass, hematoma, midline shift, or acute infarct. Visualized intracranial internal carotid arteries, distal vertebral arteries, and basilar artery are widely patent. There is no significant stenosis, occlusion, or aneurysm seen within the bilateral ACAs, MCAs, or special needs babysitter. Patchy periventricular white matter hypodensity is again noted and favors microvascular ischemic change. There are mild atrophic changes within the brain. The major dural venous sinuses are patent. Mild calcified plaque within the bilateral carotid siphons. Hypoplastic bilateral P1 segments. The bilateral special needs babysitter are fed primarily through the posterior communicating arteries. This is considered to be a normal variant. IMPRESSION: No significant stenosis, occlusion, or aneurysm within the [facility]. ACT 112: Negative or not required by law. Electronically signed by: Cristopher Moody M.D. 04/12/2023 2:48 PM Neck CTA 04/12/23 10:31 CT angio neck with con CLINICAL HISTORY: 67 years-old Female with AMS. Acutely altered mental status. COMPARISON STUDY: CTA head of same day, brain MRI 04/08/2023, chest CT 04/09/2023. TECHNIQUE: Following the IV administration of 120 of Optiray, CT angiogram of the neck was performed from the aortic arch to the skull base. Images are reviewed in the axial, sagittal, and coronal planes. 3-D MIPS images are created and assessed. IV contrast was administered without complication. All measurements were calculated based on NASCET criteria. A dose lowering technique was utilized adhering to the principles of ALARA. FINDINGS: Cardiomegaly with evidence of pulmonary arterial hypertension. Pulmonary fibrotic changes are again noted. Small layering right pleural effusion. There is no pneumothorax. Left subclavian [id number] catheter is partially imaged. Unremarkable thyroid. Soft tissues of the neck are within normal limits. No acute intracranial abnormality. Degenerative changes of the cervical spine. Study is motion degraded. Atherosclerosis of the thoracic aortic arch. Patency of the innominate and imaged subclavian arteries. The common carotid arteries are patent. Moderate atherosclerotic plaque of the right greater than left carotid bulbs resulting in less than 50% stenosis. The imaged internal carotid arteries are patent. The vertebral arteries are codominant and widely patent. No aneurysm, dissection, high-grade stenosis or arterial occlusion identified. IMPRESSION: Unremarkable CTA of the neck. ACT 112: Negative or not required by law. The above report was generated using voice recognition software. It may contain grammatical, syntax or spelling errors. Dictated: 04/12/2023 1:08 PM Transcribed: 04/12/2023 1:26 PM Ivet [id number] TORY_Yohannes [id number] Electronically signed by: Aiden Natarajan M.D. 04/12/2023 1:49 PM Medications Administered Current Inpatient Medications Aspirin (Aspirin 81 Mg Ectab) 81 mg PO DAILY [facility] Stop: 05/09/23 08:59 Last Admin: 04/12/23 08:56 Dose: Not Given Atorvastatin Calcium (Atorvastatin 40 Mg Tab) 80 mg PO DAILY [facility] Stop: 05/09/23 08:59 Last Admin: 04/12/23 08:56 Dose: Not Given Bupropion HCl (Bupropion Xl 300 Mg Tabcr) 300 mg PO DAILY [facility] Stop: 05/09/23 08:59 Last Admin: 04/12/23 08:56 Dose: Not Given Fluticasone Furoate (Fluticasone Furoate 200mcg 14 Puffs/Inhaler) 1 puffs INH DAILY [facility] Stop: 05/09/23 08:59 Last Admin: 04/12/23 08:56 Dose: Not Given Fluticasone Propionate (Fluticasone Propionate Na Spr 16 Gm Btl) 2 sprays NA DAILY [facility] Stop: 05/09/23 08:59 Last Admin: 04/12/23 08:56 Dose: Not Given Guaifenesin (Guaifenesin 600 Mg Tabcr) 1,200 mg PO Q12 [facility] Stop: 05/08/23 20:59 Last Admin: 04/12/23 08:57 Dose: Not Given Heparin Sodium (Porcine) (Heparin Sod 5,000 Unit/0.5 Ml Vial) 5,000 units SQ Q12 [facility] Stop: 05/08/23 20:59 Last Admin: 04/12/23 08:57 Dose: 5,000 units Azithromycin 250 mg/ Dextrose 252.5 mls @ 125 mls/hr IV Q24H [facility] Stop: 04/12/23 18:02 Last Infusion: 04/12/23 16:04 Dose: Infused Cefepime HCl 2,000 mg/ Syringe 20 mls @ 5 mls/min IV Q8H [facility]; Protocol Stop: 04/16/23 03:59 Last Admin: 04/12/23 14:08 Dose: 5 mls/min Magnesium Sulfate/Dextrose (Magnesium Sulfate / D5w) 1 gm in 100 mls @ 50 mls/hr IV Q2H [facility] Stop: 04/12/23 19:59 Last Admin: 04/12/23 16:12 Dose: 100 mls/hr Lidocaine (Lidocaine 5% 1 Patch) 1 patch TD QAM [facility] Stop: 05/09/23 08:59 Last Admin: 04/12/23 08:57 Dose: Not Given Miscellaneous (Remove Lidoderm Patch) 1 each N/A DAILY@2100 [facility] Stop: 05/09/23 20:59 Last Admin: 04/11/23 20:16 Dose: 1 each Ondansetron HCl (Ondansetron Inj 2 Mg/Ml 2 Ml Vial) 4 mg IV Q4H PRN PRN Reason: Nausea And Vomiting Stop: 05/08/23 19:08 Umeclidinium/Vilanterol (Umeclidinium/Vilanterol 62.5/25mcg 7 Puffs/Inhaler) 1 puffs INH DAILY [facility] Stop: 05/09/23 08:59 Last Admin: 04/12/23 08:57 Dose: Not Given
--- NOTE | 2023-04-12 22:20 | Electrocardiogram Report ---
Test Reason : Blood Pressure : / mmHG Vent. Rate : 071 BPM Atrial Rate : 071 BPM P-R Int : 172 ms QRS Dur : 082 ms QT Int : 410 ms P-R-T Axes : 050 065 101 degrees QTc Int : 445 ms Normal sinus rhythm Low voltage QRS Poor R wave progression, consider anterior OK vs. lead placement vs. LVH Abnormal ECG When compared with ECG of 09-APR-2023 08:35, Questionable change in QRS axis Confirmed by Billy Flood ([id number]) on 04/12/2023 10:20:39 PM Referred By: REFERRED SELF Confirmed By:Billy Flood
[2023-04-13] MEDS: CEFEPIME 2,000 MG in SYRINGE 0 ML IV SCH ×3 (04:00→19:47)
[2023-04-13 07:03] LABS: Hematocrit (blood only) 36.7 % (37.0-47.0); Hemoglobin 12.6 g/dl (12.0-16.0); Mean Corpuscular Hgb Conc 34.3 g/dL (32.0-36.0); Mean Corpuscular Volume 84.4 fL (80.0-100.0); Mean Platelet Volume 10.9 fL (9.4-12.4); Nucleated RBC # (auto) 0.03 K/uL (0.00-0.12); Nucleated RBC % (auto) 0.3 %; Platelet Count 142 K/uL (130-400); RDW Coefficient of Variation 17.2 % (11.5-14.5); Red Blood Count 4.35 M/uL (4.20-5.40); White Blood Count 9.51 K/ul (4.8-10.8)
[2023-04-13 07:28] LABS: Albumin Globulin Ratio 1.1 (0.9-2); Bilirubin,Total 1.4 mg/dl (0.2-1.0); Calcium 8.5 mg/dl (8.6-10.3); Creatinine Clr Calc Pharmacy 110.5 ml/min; Est GFR (Non-African American) 100.1 ml/min; Globulin 2.7 gm/dl (2.5-4.0); Magnesium 1.6 mg/dl (1.7-2.4); Phosphorus 1.7 mg/dl (2.5-4.9); Potassium 3.3 mmol/L (3.5-5.1); Total Protein 5.7 gm/dl (6.0-8.3)
[2023-04-13] MEDS ORDERED: POTASSIUM PHOS 3 MMOL/1 ML INFUSION IV ONE (07:52)
[2023-04-13] MEDS ORDERED: POTASSIUM CHLORIDE / WTR 10 MEQ/100 ML PLCT IV ONE (07:52)
[2023-04-13] MEDS ORDERED: DEXTROSE 50% 50 ML SYRINGE IV ONE (07:59)
[2023-04-13] MEDS: MAGNESIUM SULFATE / D5W 1 GM/100 ML BAG IV SCH ×2 (09:00→11:03)
[2023-04-13] MEDS ORDERED: POTASSIUM PHOSPHATE 30 MMOL in SODIUM CHLORIDE 0.9% 500 ML IV ONE (09:00)
[2023-04-13] MEDS: buPROPion XL 300 MG TABCR PO SCH (09:01)
[2023-04-13] MEDS: FLUTICASONE FUROATE 200MCG 14 PUFFS/INHALER INH SCH (09:01)
[2023-04-13] MEDS: ASPIRIN 81 MG ECTAB PO SCH (09:01)
[2023-04-13] MEDS: HEPARIN SOD 5,000 UNIT/0.5 ML VIAL SQ SCH ×2 (09:05→19:47)
[2023-04-13] MEDS: guaiFENesin 600 MG TABCR PO SCH ×2 (09:05→19:48)
[2023-04-13] MEDS: LIDOCAINE 5% 1 PATCH TD SCH (09:05)
[2023-04-13] MEDS: FLUTICASONE PROPIONATE NA SPR 16 GM BTL SCH (09:05)
[2023-04-13] MEDS: UMECLIDINIUM/VILANTEROL 62.5/25MCG 7 PUFFS/INHALER INH SCH (09:06)
--- NOTE | 2023-04-13 10:37 | Neurology Progress Note ---
Date of Service April 13, 2023 Assessment & Plan (1) Acute encephalopathy: Plan This patient has an encephalopathy of an acute nature, likely multifactorial. 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 She has multiple pulmonary problems including recent pneumonia, COPD, and post radiation pneumonitis. 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 There may be metastasis to the liver. There was no evidence of metastases to the brain and CT angiography of the head neck was largely unremarkable. In addition, she has severe obstructive sleep apnea and will likely be more confused in the hydraulic elevator constructor than later in the day. She is a history of nonspecific small stroke in the past (I have no details) MRI shows moderate old small-vessel ischemic disease. She has considerable electrolyte imbalance including phosphorus and magnesium, as well as abnormal liver enzymes. All of this could create encephalopathy. She is not having seizure activity. There is no evidence of infection she is being covered with IV antibiotics EEG April 11, was slow in general, without focal abnormalities for potentially epileptogenic discharges. Recommendations: 1. I am not sure what else to do from a neurologic standpoint except to continue to improve her electrolytes and hepatic issue. An LP is not indicated at this time 2. Avoid CORK INSULATION SETTER sedating medications possible increase activity if possible Overall, I spent a total of 35 minutes with this case including review of records, review of MRI films, direct evaluation the patient at bedside, report generation, and discussion of the case with Dr. Lorenzo, including differential diagnosis and treatment options. Admission and Anticipated Discharge Date Admission Date: April 08, 2023 Subjective Patient is confused as before but can follow commands and is fairly cooperative. Nursing reports no other big changes. Blood pressure is 113/74 and she is afebrile. MRI of the brain with without contrast showed no evidence of metastases and she is had no acute stroke. I reviewed these films CT angiography of the head and neck were unremarkable without any vascular stenoses or anomalies. CBC was unremarkable Chem profile revealed a sodium of 129, potassium 3.3, calcium 8.5, phosphorus 1.7, magnesium 1.6, and elevated liver tests as before Results & Data Vital Signs (Past 12 Hours) Vital Signs Temp Pulse Resp BP Pulse Ox O2 Del Method O2 Flow Rate 04/13/23 07:58 36.4 C L 94 H 18 113/74 91 Nasal Cannula 6 04/13/23 02:50 36.6 C 86 18 97/58 L 90 Nasal Cannula 6 04/12/23 22:54 36.8 C 82 16 110/76 91 Nasal Cannula 2 Exam (Neuro) Physical Exam: She is awake and alert enough to answer questions and follow one-step commands. She is no complaint of pain but knows that she is confused. She has some ptosis bilaterally but extraocular muscles are intact and there is no facial droop. Limb strength seems symmetrical. PG Care Time/CCT Total # of Minutes Spent Total Time Spent with Patient: Total time spent is greater than 50% in coordination of care (as documented) at patient's floor/unit and/or counseling patient: Coding Level of Care Code 22308 SUB INP/OBS CARE 2/35MIN Diagnoses Acute encephalopathy G93.40 Time Spent (min) 35
--- NOTE | 2023-04-13 10:39 | Magnetic Resonance Report ---
MRI OF THE ABDOMEN WITHOUT CONTRAST CLINICAL HISTORY: liver mass w h/o lung ca. R/o hepatic mets COMPARISON STUDY: CT of the abdomen and pelvis April 08, 2023. On ultrasound April 09, 2023. TECHNIQUE: Utilizing a 1.5 Darline magnet and dedicated coil, multiplanar, multiecho imaging of the abd omen was performed. Patient was unable to tolerate further imaging and therefore postcontrast imaging was not performed. FINDINGS: This exam is moderately compromised by motion artifact. In addition, postcontrast imaging c ould not be performed. The liver is enlarged, measuring 25 cm in craniocaudal dimension. The liver is markedly heterogeneous. Innumerable nodules throughout the liver are present. These measure up to ap proximately 2.6 cm. There is probable associated restricted diffusion within these lesions. There is no biliary ductal dilatation. Trace perihepatic ascites is noted. There is a small right pleural effu monserrat. There is no abdominal lymphadenopathy. Unenhanced images of the spleen, adrenal glands, kidneys and pancreas are unremarkable. The gallbladder is surgically absent. Visualized skeletal structures are markedly heterogeneous. IMPRESSION: 1. Technically compromised exam given motion artifact and lack of postcontrast imaging. 2. Enlarged heterogeneous liver with nodularity of the liver contour. Innumerable nodules throughout the liver. These could reflect regenerative nodules in the setting of cirrhosis however are suspiciou s for metastatic disease on this unenhanced examination. If possible, follow-up postcontrast MRI of t he liver is recommended. 3. Marked heterogeneity of the visualized skeletal structures, also suspicious for metastatic disease . Outpatient PET/CT when clinical condition might be considered ACT 112: Negative or not required by law. Electronically signed by: Pierre Cervantes M.D. 04/13/2023 10:36 AM
--- NOTE | 2023-04-13 16:16 | Hospitalist Progress Note ---
Date of Service April 13, 2023 Assessment & Plan (1) Acute respiratory failure with hypoxia: (2) Pneumonia: (3) Elevated transaminase level: Plan: Patient is a 67 yr female with H/O Small cell lung carcinoma s/p chemo and XRT therapy finishing in October 2022, Hx of tobacco use, recurrent pneumonia/radiation pneumonitis, GERD, peptic ulcer disease, and recent admission to [facility] for pneumonia treatment, and was discharged on 04/02/2023 to home with home health services. Acute Metabolic Encephalopathy Acute on chronic Respiratory failure with Hypoxia Pneumonia/Radiation pneumonitis/Fibrosis H/O Small Cell Lung Cancer H/O MICHELLE on CPAP HS H/O tobacco use disorder Anion Gap Metabolic Acidosis Chronic Oxygen Dependency: On 4-5 L at baseline as per family --MRI Brain:Mild cerebral atrophy and moderate patchy periventricular and deep white matter T2 hyperintensities consistent with chronic small vessel disease and/or senescent changes. No areas of diffusion restriction are seen to indicate acute stroke. No acute intracranial process is identified. No mass or hemorrhage. --Repeat MRI brain with contrast shows no acute normality. 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 Density in the right upper lobe may be related to fibrosis however superimposed infectious/inflammatory process cannot be entirely excluded. ---BioFire negative --Obtain old records, HIM consulted -- Procalcitonin 0.62 --Blood Cultures: Negative to date --TSH, B12 normal, Lyme screen negative --EEG:EEG was abnormal during wakefulness, showing a [id number] generalized cerebral dysrhythmia-slowing of a nonspecific nature.. No focal abnormalities or, potentially epileptogenic discharges was seen. --No hypercarbia on blood gas -- Hold narcotics for now --Continue IV fluids as needed Continue empiric azithromycin, cefepime for now Continue to replete electrolytes as indicated Saturating well on 6 L supplemental oxygen Continue CPAP at bedtime Reorient frequently to minimize delirium Appreciate neurology, pulmonology and gastroenterology input Hypokalemia-repleted, recheck in a.m. Hypomagnesemia-improved, repleted IV, recheck in a.m. Hypophosphatemia-repleted, recheck in a.m. CHALINO on CKD III--Likely Prerenal. Status post IV fluids. CHALINO resolved Hypercalcemia with inappropriately elevated PTH at 94-suspected due to malignancy/dehydration Normal 25 hydroxy vitamin D level Hold calcium/Vit D supplements Hypercalcemia resolved Elevated Transaminases -CT ABD:There is a 14 mm hypoechoic lesion in left lobe of the liver. Additional ill-defined heterogeneity of the liver is seen. Hepatic steatosis versus edema is seen. Hepatomegaly is seen with the liver measuring approximately 18 mm in craniocaudal dimension at the midclavicular line. Gallbladder and biliary tree: Patient is status post cholecystectomy. Physiologic prominence of the biliary ducts is noted. --Liver USD:Enlarged and cirrhotic liver. Heterogeneous echotexture throughout the liver which may be due to the cirrhosis. An underlying hepatitis could also have a similar appearance. A 2.9 cm nodular focus within the left hepatic lobe on image 26 may be due to the heterogeneous liver or focal fat. A hepatic mass is considered less likely but not entirely excluded. Follow-up recommended to ensure stability. --GGT 1802 --Hepatitis panel negative --Alpha-fetoprotein level pending -- Avoid hepatotoxic agents as able Monitor LFTs MRI liver was attempted but could not be completed-however suspicious for metastatic disease as noted below 1. Technically compromised exam given motion artifact and lack of postcontrast imaging. 2. Enlarged heterogeneous liver with nodularity of the liver contour. Innumerable nodules throughout the liver. These could reflect regenerative nodules in the setting of cirrhosis however are suspicious for metastatic disease on this unenhanced examination. If possible, follow-up postcontrast MRI of the liver is recommended. 3. Marked heterogeneity of the visualized skeletal structures, also suspicious for metastatic disease. Outpatient PET/CT when clinical condition might be considered HLD-hold atorvastatin given elevated LFTs H/O CVA-MRI negative for acute abnormality. Continue aspirin, statin DVT Px: Heparin SQ Code Status: DNR/DNI Disposition pending medical stability-might consider palliative evaluation Updated son over the phone Family Contact: URSULA Bond (son) [phone], or his Hyun at [phone] Admission and Anticipated Discharge Date Admission Date: April 08, 2023 Subjective Patient was seen and examined at bedside. She remains drowsy and confused. No fever, chills, chest pain, nausea or vomiting. Review of Systems Review of Systems: All systems reviewed & are unremarkable except as noted in Subjective Physical Exam Physical Exam: General: Chronically ill-appearing female, lying in bed, not in distress, on nasal cannula 6 L HEENT: MYRA, MMM Chest: Clear breath sounds bilaterally. Left-sided Port-A-Cath in situ CVS: Regular rate and rhythm, normal heart sounds, no murmur Abdomen: Soft, non tender, not distended, normal bowel sounds Neuro: Drowsy, easily arousable, conversing briefly Extremities: No cyanosis, clubbing or edema. On hand mitts Psych: Calm, cooperative Results & Data Results & Data Vital Signs (Past 12 Hours) Vital Signs Temp Pulse Resp BP Pulse Ox O2 Del Method O2 Flow Rate 04/13/23 15:43 36.2 C L 92 H 18 111/77 98 Nasal Cannula 6 04/13/23 08:00 Nasal Cannula 04/13/23 11:41 36.0 C L 83 18 118/78 98 Nasal Cannula 6 04/13/23 07:58 36.4 C L 94 H 18 113/74 91 Nasal Cannula 6 Laboratory Results Short CBC 04/13/23 Range/Units 06:11 WBC 9.51 (4.8-10.8) K/ul Hgb 12.6 (12.0-16.0) g/dl Hct 36.7 L (37.0-47.0) % Plt Count 142 (130-400) K/uL BMP 04/13/23 06:11 Sodium 129 L Potassium 3.3 L Chloride 95 L Carbon Dioxide 21 BUN 12 Creatinine 0.48 L Glucose 60 L Calcium 8.5 L Liver Function 04/13/23 Range/Units 06:11 Total Bilirubin 1.4 H (0.2-1.0) mg/dl AST 102 H (13-39) U/L ALT 77 H (7-52) U/L Alkaline Phosphatase 537 H (34-104) U/L Albumin 3.0 L (3.4-5.0) gm/dl Diagnostic Findings Abdomen MRI 04/13/23 05:00 MRI OF THE ABDOMEN WITHOUT CONTRAST CLINICAL HISTORY: liver mass w h/o lung ca. R/o hepatic mets COMPARISON STUDY: CT of the abdomen and pelvis April 08, 2023. On ultrasound April 09, 2023. TECHNIQUE: Utilizing a 1.5 Darline magnet and dedicated coil, multiplanar, multiecho imaging of the abdomen was performed. Patient was unable to tolerate further imaging and therefore postcontrast imaging was not performed. FINDINGS: This exam is moderately compromised by motion artifact. In addition, postcontrast imaging could not be performed. The liver is enlarged, measuring 25 cm in craniocaudal dimension. The liver is markedly heterogeneous. Innumerable nodules throughout the liver are present. These measure up to approximately 2.6 cm. There is probable associated restricted diffusion within these lesions. There is no biliary ductal dilatation. Trace perihepatic ascites is noted. There is a small right pleural effusion. There is no abdominal lymphadenopathy. Unenhanced images of the spleen, adrenal glands, kidneys and pancreas are unremarkable. The gallbladder is surgically absent. Visualized skeletal structures are markedly heterogeneous. IMPRESSION: 1. Technically compromised exam given motion artifact and lack of postcontrast imaging. 2. Enlarged heterogeneous liver with nodularity of the liver contour. Innumerable nodules throughout the liver. These could reflect regenerative nodules in the setting of cirrhosis however are suspicious for metastatic disease on this unenhanced examination. If possible, follow-up postcontrast MRI of the liver is recommended. 3. Marked heterogeneity of the visualized skeletal structures, also suspicious for metastatic disease. Outpatient PET/CT when clinical condition might be considered ACT 112: Negative or not required by law. Electronically signed by: Pierre Cervantes M.D. 04/13/2023 10:36 AM Medications Administered Current Inpatient Medications Aspirin (Aspirin 81 Mg Ectab) 81 mg PO DAILY [facility] Stop: 05/09/23 08:59 Last Admin: 04/13/23 09:01 Dose: Not Given Atorvastatin Calcium (Atorvastatin 40 Mg Tab) 80 mg PO DAILY [facility] Stop: 05/09/23 08:59 Last Admin: 04/12/23 08:56 Dose: Not Given Bupropion HCl (Bupropion Xl 300 Mg Tabcr) 300 mg PO DAILY [facility] Stop: 05/09/23 08:59 Last Admin: 04/13/23 09:01 Dose: Not Given Fluticasone Furoate (Fluticasone Furoate 200mcg 14 Puffs/Inhaler) 1 puffs INH DAILY [facility] Stop: 05/09/23 08:59 Last Admin: 04/13/23 09:01 Dose: Not Given Fluticasone Propionate (Fluticasone Propionate Na Spr 16 Gm Btl) 2 sprays NA DAILY [facility] Stop: 05/09/23 08:59 Last Admin: 04/13/23 09:05 Dose: Not Given Guaifenesin (Guaifenesin 600 Mg Tabcr) 1,200 mg PO Q12 [facility] Stop: 05/08/23 20:59 Last Admin: 04/13/23 09:05 Dose: Not Given Heparin Sodium (Porcine) (Heparin Sod 5,000 Unit/0.5 Ml Vial) 5,000 units SQ Q12 [facility] Stop: 05/08/23 20:59 Last Admin: 04/13/23 09:05 Dose: 5,000 units Cefepime HCl 2,000 mg/ Syringe 20 mls @ 5 mls/min IV Q8H [facility]; Protocol Stop: 04/16/23 03:59 Last Admin: 04/13/23 13:27 Dose: 5 mls/min Lidocaine (Lidocaine 5% 1 Patch) 1 patch TD QAM [facility] Stop: 05/09/23 08:59 Last Admin: 04/13/23 09:05 Dose: Not Given Miscellaneous (Remove Lidoderm Patch) 1 each N/A DAILY@2100 [facility] Stop: 05/09/23 20:59 Last Admin: 04/12/23 21:40 Dose: 1 each Ondansetron HCl (Ondansetron Inj 2 Mg/Ml 2 Ml Vial) 4 mg IV Q4H PRN PRN Reason: Nausea And Vomiting Stop: 05/08/23 19:08 Umeclidinium/Vilanterol (Umeclidinium/Vilanterol 62.5/25mcg 7 Puffs/Inhaler) 1 puffs INH DAILY [facility] Stop: 05/09/23 08:59 Last Admin: 04/13/23 09:06 Dose: Not Given
[2023-04-13] MEDS ORDERED: OLANZapine 10 MG/2.1 ML SDV IM STA (21:19)
[2023-04-13] MEDS ORDERED: LORazepam 2 MG/1 ML VIAL IV STA (22:42)
[2023-04-14] MEDS ORDERED: MoRPHine SULFATE 2 MG/ML CARP IV STA (02:06)
[2023-04-14] MEDS ORDERED: OLANZapine 10 MG/2.1 ML SDV IM STA (03:16)
[2023-04-14] MEDS ORDERED: LORazepam 2 MG/1 ML VIAL IV STA (03:21)
[2023-04-14] MEDS: CEFEPIME 2,000 MG in SYRINGE 0 ML IV SCH (03:38)
[2023-04-14] MEDS ORDERED: SODIUM BICARB 8.4% INJ 50 MEQ/50 ML SYR IV STA (04:14)
[2023-04-14 04:28] LABS: iSTAT Allen Test Pass; iSTAT Art Bld Gas pCO2 Correct 70 mmHg (35-46); iSTAT Art Bld Gas pH Corrected 7.035 (7.35-7.45); iSTAT Arterial Blood Gas HCO3 19 meg/L (19-24); iSTAT Arterial Blood Gas pCO2 71 mmHg (35-46); iSTAT Arterial Blood Gas pH 7.03 (7.35-7.45); iSTAT Arterial Blood Gas pO2 82 mmHg (80-95); iSTAT Arterial Blood Gas pO2 C 79; iSTAT Carbon Dioxide 21 mmol/L (24-31); iSTAT FiO2 100 %; iSTAT Hematocrit 41 % (37-47); iSTAT Hemoglobin 13.9 g/dl (12.0-16.0); iSTAT Potassium 5.1 mmol/L (3.3-5.0); iSTAT Site R Radial; iSTAT Sodium 130 mmol/L (135-144)
--- NOTE | 2023-04-14 07:32 | Death Pronouncement Note ---
Date of Service April 14, 2023 Pronouncement Note Admission Date April 08, 2023 Date and Time of Date of : 04/14/23 Time of : 05:41 Additional Data Confirmation of : no pulse, no respirations, no heart sounds and pupils fixed and dilated Family: contacted Attending physician: Paolo Lorenzo MD
--- NOTE | 2023-04-14 07:46 | Communication Note ---
Date of Service: April 14, 2023 Patient was restless and was taking off oxygen last night. was placed on mitts and a dose of Zyprexa in 2.5mg given. She was still restless and oxygen sats were going down. A dose of iv ativan 0.25mg give. Oxygen sats seemed improved for sometime but again she became restless and dose of morphine 2mg iv given but didnot helped . She was desaturating on oxy mask 10lts. Apparently she was refusing cpap for last few days. Patient has metastatic lung cancer and is DNR/DNI.Called son but was going to voice mail.Placed on bipap. Abg showed PH 7.03 and pco2 71oxygen 88%. Her sats seemed improved to 93% on monitor. She was lethargic and heavy breathing.CAlled son few times but was going to voice mail and left message. Repeat Abg showed worsening POC ph 6.827 and pco2>130 and oxygen sat in 60% on monitor. Patient at 5:41am.Called son was again went to voicemail. Later son called the Nursing station and was notified the event. Able to reach son and notified about the events and expiry of the patient. He stated will come to hospital in about an hour. Notified am provider.
--- NOTE | 2023-04-14 08:24 | Discharge Summary ---
Date of Service April 14, 2023 Admission HPI Per Admitting Provider This is a 67 yo F with PMhx of GERD, peptic ulcer disease, and recent admission to [facility] for pneumonia treatment, and was discharged on 03/31- 04/02/2023 due to trouble breathing. Pt son reports pt with hx of Small cell lung cancer and underwent 4 cycles of chemotherapy and radiation daily for about 1 month of therapy which finished in October 2022, was told that she at one point had radiation pneumonitis. During the hospitalization she was also treated for hyponatremia. Since then she has had issues with breathing. Pt has been wearing at baseline, ( son is unsure how much, mentions 8L?). Pt also has a CPAP machine but is noncompliant. Pt lives at home, granddaughter lives with her and helps with basic household tasks. Over the past 2 days, she reports things have been progressively getting worse and was asking to "talk to Pap," who is her , and he has been for 7 years. Since being discharged home, she has been unable to even stand up by herself. PT/OT were consulted, and today was the first time they made it to her home to see the patient, and recommended she needed to go back to the hospital/rehab. Son reports prior to 3 weeks ago, she was completely normal, and since last Saturday she has been confused. Today she was evaluated by home health and was found to be appearing more ill, encephalopathic and therefore called EMS. Upon presentation here in the ER she was found to be hypoxic with O2 sats at 88% on room air, confused and minimally able to participate in conversation due to confusion. She was placed on 5 L via oxy mask in her O2 sats improved to the low 90s. Of note liver function tests are elevated, AST 143, ALT 108, alk phos 782. Social Hx: Hx of tobacco use about 20 years, smoked 1-2.5 packs of [employer] x 25-30 years, son reports social drinking Admission Exam Per Admitting Provider General: awake, alert, awakens to verbal stimuli, confused, obese Head: Normocephalic, atraumatic ENT: PERRL, EOMI, no pharyngeal exudate, mucous membranes dry Chest: on 8 L via oximask, titrated down to 4 L with maintained sats in mid 90s, + Right middle lobe with crackles, no wheeze or rales Cardiac: Regular rate and rhythm, no murmur, no JVD, normal peripheral pulses, good capillary refill Abdominal: NABS x 4 quadrants, soft, nondistended, nontender to palpation, no rebound or guarding Extremities: Normal inspection, no peripheral edema or erythema, calfs nontender to palpation Psych: Normal mood and affect Neuro: awake, not oriented to date, place or time. She can move all extremities without difficulty in bed, no gross motor deficits, speech is clear, no peripheral sensory deficits Principal Diagnosis Acute respiratory failure with hypoxia and hypercarbia in setting of metastatic lung disease Discharge Exam Discharge Data Allergies Allergy/AdvReac Type Severity Reaction Status Date / Time penicillin G Allergy Unknown HIVES, RASH Verified 04/08/23 17:46 aspirin Allergy RASH/ITCHY Verified 04/08/23 17:48 Consultations 04/08/23 17:57 ED Decision to Admit Stat 04/08/23 19:07 HIM [Consult Health Information Management] Stat 04/10/23 07:38 Consult Pulmonology Routine 04/10/23 13:09 Consult Neurology Routine 04/11/23 09:25 Consult Gastroenterology Routine 04/14/23 08:00 Consult Palliative Care Routine Ordered Studies 04/08/23 14:22 CT head/brain wo con Stat 04/08/23 15:36 CT Abd and Pelvis [CT abd pelvis IV con only] Stat 04/08/23 19:16 MRI Brain [MR brain wo con] Stat 04/09/23 08:20 US liver Routine 04/09/23 08:33 CT chest diagnostic wo con Routine 04/12/23 10:31 CT angio head w con Routine CT angio neck with con Routine MRI Brain [MR brain wo/w con] Routine 04/13/23 05:00 MR abdomen wo con Routine Hospital Course (1) Acute respiratory failure with hypoxia: (2) Pneumonia: (3) Elevated transaminase level: Patient is a 67 yr female with history of small cell lung carcinoma s/p chemo and XRT therapy finishing in October 2022, history of tobacco use, recurrent pneumonia/radiation pneumonitis, GERD, peptic ulcer disease, and recent admission to [facility] for pneumonia treatment, and was discharged on 04/02/2023 to home with home health services. Patient was admitted for acute metabolic encephalopathy along with acute on chronic hypoxic respiratory failure. She was seen by pulmonary, palliative, neurology and gastroenterology. She had severe electrolyte abnormalities which were corrected. Her brain MRI and CTA head and neck did not show any acute abnormality or brain mets. Her MRI liver was suspicious for multiple hepatic mets although the test could not be completed due to patient noncooperation. Her CT chest could not rule out superimposed infectious inflammatory process for which she was empirically on antibiotics throughout this admission. Her EEG did not show any focal abnormalities or potential epileptogenic discharges. Her respiratory bio fire, blood cultures were negative. TSH, B12, ammonia within normal limits. Patient continued to be encephalopathic and fragile. She was changed to DNR/DNI based on her living will and after discussion with her son. Overnight, patient decompensated and earlier this morning at 5:41 AM from acute on chronic respiratory failure with hypoxia and hypercarbia in setting of her metastatic lung disease (please see communication note from Dr. Patiño) and progress note from yesterday for details. Electronic certificate was completed by Dr. Patiño. I called her son this morning and offered my condolenc es. He was appreciative of the care she received in this hospital. Total Time Total Time Spent Total Time Spent (In Minutes): 15 Discharge Plan Discharge Items Patient Disposition: Discharge Diagnosis: Acute on chronic respiratory failure with hypoxia and hypercarbia in setting of metastatic lung disease Other Date/Time: 04/14/23 05:41
== END 2023-04-14 08:33 | disposition expired | DRG 189 ==
LOC: ED 14:11 → EDINP 21:49 → SUATTDRO 21:49 → 2S 04-09 00:16